=== PATIENT | male | born 1935 | race Caucasian/White ===

== ENCOUNTER → 2020-06-25 | Outpatient (CLI) | payer MEDICARE, OTHER, SELFPAY ==
[2020-06-25 18:57] VITALS: BMI 33.4
[2020-06-25 21:48] LABS: Absolute Lymphocyte Count 1.83 X10^3/uL (0.83-4.51); Absolute Neutrophil Count 6.9 X10^3/uL (2.0-7.7); Basophil# 0.06 X10^3/uL; Basophil% 0.6 % (0-1); Eosinophil# 0.08 X10^3/uL; Eosinophils% 0.8 % (0-5); Hemoglobin 15.5 g/dL (13.0-16.5); Lymphocyte # 1.83 X10^3/ul (4.0); Lymphocyte % 19.1 % (19-41); Mean Corpuscular Hgb 31.8 pg (27.0-32.0); Mean Corpuscular Volume 96.5 fL (80-94); Mean Platelet Vol. 9.8 fl (6.2-12.0); Monocyte# 0.69 X10^3/uL; Monocyte% 7.2 % (0-10); NRBC Flagged by Analyzer 0 % (0-5); Neutrophil # 6.87 X10^3/uL (2.7-7.7); Neutrophil % 71.8 % (47-70); POSITIVE COUNT YES; Platelet Count 276 K/mm3 (150-450); RBC Distribution Width CV 12.9 % (11.6-14.6); RBC Distribution Width SD 45.7 fl (35.1-43.9); Red Blood Count 4.87 M/mm3 (4.6-6.2); White Blood Count 9.6 K/mm3 (4.4-11.0)
[2020-06-25 22:06] LABS: AST(SGOT) 14 U/L (15-37); Alanine Aminotransfer ALT/SGPT 18 U/L (16-61); Albumin, Serum 3.6 g/dL (3.2-5.0); Alkaline Phosphatase 62 U/L (45-117); Anion Gap 5 (5-15); BUN 15 mg/dL (7-18); BUN/Creat Ratio 12.7 RATIO (10-20); Calcium,Total 9.3 mg/dL (8.5-10.1); Chloride 102 mmol/L (98-107); Cholesterol 222 mg/dL (200); Creatinine, Serum 1.18 mg/dL (0.70-1.30); EST Glomerular Filtration Rate 63 mL/min (>60); Est Glom Filt Rate - Afr Amer 76 mL/min (>60); Globulin 3.5 g/dL (2.2-4.2); Glucose 97 mg/dL (74-106); High Density Lipoprotein 40 mg/dL; PSA,Total - Annual Screen 2.78 ng/mL (0.00-4.00); Potassium 4.5 mmol/L (3.5-5.1); Protein, Total 7.1 g/dL (6.4-8.2); Sodium Level 137 mmol/L (136-145); Triglycerides 286 mg/dL; Very Low Density Lipoprotein 57 mg/dL (5-40)
[2020-06-25 22:08] LABS: Differential Indicated SCAN CRITERIA MET
[2020-06-25 22:15] LABS: Differential Comment SCANNED
== END | disposition home or self-care (01) ==
PROVIDERS: PCP Nurse Practitioner; Referring Provider Nurse Practitioner; Visit Provider Nurse Practitioner
DX: I10 Essential (primary) hypertension (principal); E78.5 Hyperlipidemia, unspecified; R35.0 Frequency of micturition; R19.09 Other intra-abdominal and pelvic swelling, mass and lump
CPT/HCPCS: 80053; 80061; 84153; 85025; G0103

== ENCOUNTER → 2021-01-16 | Outpatient (CLI) | payer MEDICARE, OTHER, SELFPAY ==
[2020-07-22 16:32] VITALS: BMI 33.5
[2021-01-16 21:36] LABS: Absolute Lymphocyte Count 1.84 X10^3/uL (0.83-4.51); Absolute Neutrophil Count 5.6 X10^3/uL (2.0-7.7); Basophil# 0.06 X10^3/uL; Basophil% 0.7 % (0-1); Eosinophils% 1.2 % (0-5); Hemoglobin 15.5 g/dL (13.0-16.5); Lymphocyte # 1.84 X10^3/ul (0.83-4.51); Lymphocyte % 22.2 % (19-41); Mean Corp Hgb Conc 33.7 g/dL (32-36); Mean Corpuscular Hgb 32.1 pg (27.0-32.0); Mean Corpuscular Volume 95.2 fL (80-94); Mean Platelet Vol. 9.5 fl (6.2-12.0); Monocyte# 0.65 X10^3/uL; Monocyte% 7.9 % (0-10); NRBC Flagged by Analyzer 0 % (0-5); Neutrophil # 5.58 X10^3/uL (2.7-7.7); Neutrophil % 67.5 % (47-70); Platelet Count 301 K/mm3 (150-450); RBC Distribution Width CV 13.1 % (11.6-14.6); RBC Distribution Width SD 45.1 fl (35.1-43.9); Red Blood Count 4.83 M/mm3 (4.6-6.2); White Blood Count 8.3 K/mm3 (4.4-11.0)
[2021-01-16 21:54] LABS: Vitamin B12 478 pg/mL (211-911)
[2021-01-16 21:54] LABS: ALB/GLOB Ratio 1.1 RATIO (0.9-2.4); AST(SGOT) 18 U/L (15-37); Alanine Aminotransfer ALT/SGPT 17 U/L (16-61); Albumin, Serum 3.7 g/dL (3.2-5.0); Alkaline Phosphatase 69 U/L (45-117); Anion Gap 6 (5-15); BUN 13 mg/dL (7-18); BUN/Creat Ratio 12.5 RATIO (10-20); Calcium,Total 8.5 mg/dL (8.5-10.1); Chloride 102 mmol/L (98-107); Cholesterol 220 mg/dL (200); Creatinine, Serum 1.04 mg/dL (0.70-1.30); EST Glomerular Filtration Rate 73 mL/min (>60); Est Glom Filt Rate - Afr Amer 88 mL/min (>60); Globulin 3.5 g/dL (2.2-4.2); Glucose 105 mg/dL (74-106); High Density Lipoprotein 35 mg/dL; PSA,Total- Diagnostic 2.94 ng/mL (0.0-4.0); Potassium 4.5 mmol/L (3.5-5.1); Protein, Total 7.2 g/dL (6.4-8.2); Sodium Level 138 mmol/L (136-145); Triglycerides 273 mg/dL; Very Low Density Lipoprotein 55 mg/dL (5-40)
== END | disposition home or self-care (01) ==
PROVIDERS: PCP Nurse Practitioner; Referring Provider Nurse Practitioner; Visit Provider Nurse Practitioner
DX: I10 Essential (primary) hypertension (principal); R35.0 Frequency of micturition; R53.83 Other fatigue
CPT/HCPCS: 80053; 80061; 82607; 84153; 85025

== ENCOUNTER → 2021-03-19 | Outpatient (CLI) | payer MEDICARE, OTHER, SELFPAY ==
[2021-03-19 15:48] VITALS: BMI 33.4
[2021-03-19 22:03] LABS: AST(SGOT) 21 U/L (15-37); Alanine Aminotransfer ALT/SGPT 19 U/L (16-61); Albumin, Serum 3.6 g/dL (3.2-5.0); Alkaline Phosphatase 68 U/L (45-117); Anion Gap 8 (5-15); BUN 17 mg/dL (7-18); BUN/Creat Ratio 16.2 RATIO (10-20); Calcium,Total 8.7 mg/dL (8.5-10.1); Chloride 101 mmol/L (98-107); Creatinine, Serum 1.05 mg/dL (0.70-1.30); EST Glomerular Filtration Rate 72 mL/min (>60); Est Glom Filt Rate - Afr Amer 87 mL/min (>60); Globulin 3.7 g/dL (2.2-4.2); Glucose 125 mg/dL (74-106); Potassium 4.1 mmol/L (3.5-5.1); Protein, Total 7.3 g/dL (6.4-8.2); Sodium Level 134 mmol/L (136-145)
== END | disposition home or self-care (01) ==
PROVIDERS: Visit Provider Nurse Practitioner
DX: R19.09 Other intra-abdominal and pelvic swelling, mass and lump (principal)
CPT/HCPCS: 80053

== ENCOUNTER 2021-04-02 11:06 | Day surgery (SDC) | payer MEDICARE, OTHER, SELFPAY ==
[2021-03-28 14:03] VITALS: BMI 33.4
[2021-04-02] VITALS (7 sets, daily range): BP systolic 108–147; BP diastolic 50–68; PULSE 56–62; RESP 16–18; TEMP 36.2–36.6; O2SAT 92–98; BMI 33.9
--- NOTE | 2021-04-02 | IMM_PTH ---
PATIENT: MARYAN OLIVA LOC: [facility] [place] U#:[id number] AGE/SX: 85/M ROOM: RE04/02/[address]: Dr. Reese Mcclendon MD : 1935 BED: DIS: 04/02/2021 SPEC #: [id number] RECD: 04/04/21 13:05 STATUS: KOURTNEY RERob #: [id number] SAÚL: 04/02/21 00:[address]: Reese Mcclendon DEPT: IMMUNOHISTOCHEMISTRY RECD BY: Faith Camacho ENTERED: 04/04/21 13:06 SP TYPE: IMMUNO OTHR DR: Joyce Vaca, MAPPING PILOT-C Tissues: Inguinal lymph node, NOS Procedures: CK8 (add) KI-67 (add) P53 (add) Vimentin (add) Pankeratin (initial) MELAN-A (add) S-100 (add) PHYSICIAN & INSTITUTION [place] [id number] SPECIMEN INFORMATION: Tissue Source: Left inguinal lymph node Clinical Info: Left groin mass, lower extremity edema Specimen Number: [id number] #13 CPT code: 05245, 61524 x6 METHODOLOGY: Deparaffinized sections of prefer/formalin-fixed tissue or PAP/DQ stained slides are incubated with monoclonal/polyclonal antibodies/oligonucleotide probes. Localization is made via biotin free immunoperoxidase method. Appropriate controls are performed and reacted as expected. Results on target cell population are indicated in the following table: RESULTS: ANTIBODY / CLONE RESULT Block 13 AE1-3 (AE1/AE3/PCK26) negative Vimentin (V9) positive Melan A (A103) positive S-100 (4C4.9) positive, weak P53 (DO-7) positive, weak Ki-67 (30-9) positive, moderate CK8 ([id number]) negative These tests were developed and their performance characteristics determined by [facility]. They may not have been cleared or approved by the U.S. Food and Drug Administration. The FDA has determined that such clearance or approval is not necessary. The above immunohistochemical/dualISH markers are ordered and reviewed by the Pathologist. INTERPRETATION: Left inguinal lymph node, excisional biopsy: Consistent with metastatic melanoma. SEVERIANO:gabby 04/08/2021
--- NOTE | 2021-04-02 | LYMN_PTH ---
PATIENT: MARYAN OLIVA LOC: [facility] [place] U#:[id number] AGE/SX: 85/M ROOM: RE04/02/[address]: Dr. Reese Mcclendon MD : 1935 BED: DIS: 04/02/2021 SPEC #: [id number] RECD: 04/02/21 15:00 STATUS: KOURTNEY NEHA #: [id number] SAÚL: 04/02/21 00:[address]: Reese Mcclendon DEPT: SURGICAL PATHOLOGY RECD BY: Faith Camacho ENTERED: 04/03/21 07:30 SP TYPE: LYMPH NODE OTHR DR: Joyce Vaca, DIRECTOR OF QUANTITATIVE RESEARCH-C Tissues: LYMPH NODE BIOPSY Procedures: Frozen Section (charge) Surgery Specimen Level IV HEADER OPERATION: Inguinal lymph node excisional biopsy PRE-OP DIAGNOSIS: Left groin mass, lower extremity edema TISSUE SUBMITTED: Left inguinal node pocket, frozen section FROZEN SECTION DIAGNOSIS Left inguinal lymph node, excisional biopsy: Consistent with metastatic melanoma. AM:gabby 04/03/2021 Case has been reviewed in consultation with Dr. Reynolds who concurs with the above diagnosis. IDC:SJ MICROSCOPIC DIAGNOSIS Left inguinal lymph node, excisional biopsy: Metastatic malignant melanoma. See comment. AM: 04/08/2021 COMMENT Immunohistochemistry ([id number]) supports the above diagnosis. The specimen shows lymph node tissue extensive central area of infarction and melanin pigment deposition. The specimen may represent matted group of lymph nodes. Focal area of viable tumor is noted. Iron stain with matched control is used in the evaluation and focally positive consistent with old hemorrhage. Correlation with clinical findings and appropriate follow up are necessary. Case has been reviewed in consultation with Dr. Reynolds who concurs with the above diagnosis. IDC:SJ MICROSCOPIC DESCRIPTION Slides are reviewed. GROSS DESCRIPTION Received fresh for frozen section consultation labeled with the patient's name is a specimen designated left inguinal node. The specimen consists of an ovoid fragment of sneed-red tissue measuring 4.5 x 4.3 x 2 cm. Serial sections reveal tar-black cut surfaces occupying approximately 90% of the tissue. Plant Care Worker touch prep smears are prepared. Plant Care Worker sections are submitted for frozen section consultation in two blocks. Plant Care Worker sections are submitted for permanent in six blocks. / AM:gabby 04/02/21 The rest of the specimen is submitted in seven more cassettes, 7-13. / SJ:gabby 04/07/21 TC:0 [facility]: [id number], [id number] ADDENDUM ADDENDUM ADDENDUM ADDENDUM ADDENDUM ADDENDUM ADDENDUM ADDENDUM ADDENDUM ADDENDUM ADDENDUM ADDENDUM ADDENDUM 04/17/2021 11:59 ADDENDUM 05/19/2021 10:15 ADDENDUM 06/09/2021 10:55 ADDENDUM 04/17/2021 11:59 ADDENDUM 04/17/2021 11:59 ADDENDUM 04/17/2021 11:59 ADDENDUM 04/17/2021 11:59 This addendum is added to incorporate an outside pathology consultation report. The case was examined at [facility] (#[id number]) and the following diagnosis was rendered. Left inguinal lymph node, excisional biopsy: Melanoma, metastatic, 1 of 1 lymph node. Tumor deposit size: 45 mm (tumor cell necrosis) Location: Parenchymal and subcapsular. Extracapsular extension: Present Please see complete above mentioned consultation report in EMR [facility] Testing Biomarkers findings: Microsatellite status ? cannot be determined Tumor mutation burden - cannot be determined Genomic findings: KRAS amplification KDMSA amplification ? equivocal 3 disease relevant genes with no reportable alterations: BRAF, KIT, NRAS Please see complete report in e-chart or EMR [facility] ADVANCED MELANOMA NGS REPORT FROM [facility] RESULT SUMMARY: Abnormal IMMUNOTHERAPY BIOMARKERS: Tumor Mutation Lewis: Low (3.9 Mutations / MB) Microsatellite Instability: MSI negative PERTINENT NEGATIVE RESULTS: The following genes are NEGATIVE for clinically relevant mutations. Mutational hotspots and surrounding exonic regions were interrogated for DNA level point mutations and indels (fusions not assayed). BAP1, BRAF, BRCA2, CDK4, CDKN2A, CTNNB1, EIF1AX, GNA11, GNAQ, GNAS, KIT, MAP2K1, MITF, NBN, NRAS, NTRK1, PALB2, PDGFRA, PIK3CA, PTEN, RB1, SF3B1, SMO, SRC, TERT, TP53 Please see complete report in e-chart or EMR
[2021-04-02] MEDS: Lactated Ringers 1,000 ML 100 ML IV (11:55)
--- NOTE | 2021-04-02 11:58 | HP.PCM_ITS ---
History and Physical MR#:[id number]:[id number][id number]1935 Provider:Cj Olvera/Sex: 85/M [facility] Vital Signs 03/27/21 18:11 03/28/21 14:03 Height 5 ft 10 in Weight: 233 lb BMI 33.4 33.4 BP 129/85 H Blood Pressure Location Rt brachial Position Sitting Respiration 16 Intake Visit Reasons: LEFT GROIN GROWTH Chief Complaint: left groin mass Mergers And Acquisitions Manager Required: No Is patient in pain?: No Allergies No Known Allergies Allergy (Verified 03/28/21 14:04) Medications sawpalmeto PO 07/22/20 [History Confirmed 03/28/21] irbesartan 300 mg-hydrochlorothiazide 12.5 mg tablet 1 tab PO DAILY #30 tab 10/24/20 [Rx Confirmed 03/28/21] aspirin 81 mg chewable tablet 81 mg PO DAILY 03/28/21 [History Confirmed 03/28/21] PFSH Medical History Bone spur of left foot Hard of hearing Hypertension Left groin mass Recurrent UTI Family History Mother Colon cancer Brother Cancer prostate Father Heart disease Social History Smoking Status: Former smoker alcohol intake: current alcohol intake frequency: 0-2 drinks per day HPI HPI HPI: MARYAN WILEY, is a 85 M who presents to the office today for possible biopsy of the left groin growth/lesion concerning for underlying neoplasm. He is referred from Joyce Vaca NP. Mr. Wiley states that he first developed left lower extremity swelling approximately 1 year ago. He denies any associated pain with this complaint. It was simply uncomfortable when he was playing eighteen holes of golf. He presented to the [facility], and [place], [place] and additional imaging was recommended. However this imaging was unobtainable through that facility and due to scheduling constraints related to pandemic restrictions, imaging was never completed. He noticed a lump develop over his left thigh during the last year and believes that it is gradually getting bigger. He occasionally does yard work including some weeding and thought he may have caused a hernia with straining. Mr. Wiley states that he has had some fatigue but explained this away is age- related. He has not had any exceptional night sweating, but explains that he has always been a sweater. Mr. Pink family history is remarkable for colon cancer in his mother at age 93 and prostate cancer in his brother at age 55 ROS General General: Yes fatigue; No weight change, appetite, colon cancer, breast cancer or weakness HEENT HEENT: No difficulty swallowing, eye injury, eye surgery, swollen glands or hoarseness Endo Endocrine: No thyroid disease, diabetes mellitus, thyroid cancer, Hair loss, heat intolerance or cold intolerance Skin Skin: No rash or changing moles Breast Breast: No left breast lump, right breast lump, nipple discharge, breast pain, abnormal mammogram, abnormal US or breast enlargement Musc Musculoskeletal: Yes arthritis; No back problems, rheumatoid arthritis, gout or joint pain Cardio Cardiovascular: Yes high blood pressure; No murmur, pacemaker, heart disease, atrial fibrillation, heart attack, heart stent, palpitations, shortness of breat with exertion or chest pain Psych Psychiatric: No depression, anxiety or hearing voices Resp Respiratory: No shortness of breath, No sleep apnea, No cough, No COPD, No asthma, No emphysema and No wheezing Gastro Gastrointestinal: No abdominal pain, No nausea or vomiting, No diarrhea, No constipation, No blood in stool, No acid reflux, No hemorrhoids, No ulcers, No gallbladder problem and No black,tarry stools Chandrakant Hematologic: No blood thinners, No blood disorders, No bleeding, No anemia and No blood clots Neuro Neurologic: No system reviewed and no additional complaints, except as documented, No as per HPI, No abnormal gait, No abnormal hearing, No abnormal movements, No abnormal speech, No behavioral changes, No burning sensations, No confusion, No convulsions, No disequilibrium, No dizziness, No localized weakness, No frequent falls, No headache(s), No lack of coordination, No loss of vision, No memory loss, No numbness, No other visual disturbances, No radicular pain, No restless legs, No sensory deficit, No syncope, No tingling, No tremor(s), No weakness and No other Exam Const General: cooperative, healthy appearing and no acute distress Nutritional Appearance: well nourished and overweight Other: Hard of hearing Resp Effort & Inspection: normal respiratory effort Auscultation: clear to auscultation bilaterally, no rales, no rhonchi and no wheezes Cardio Rate: regular rate Rhythm: regular rhythm Heart Sounds: S1 normal and S2 normal Extrem General: edema (Present in the left lower extremity with gaiter distribution skin changes) Other: Along the left inguinal lymph node chain there are several firm, semimobile, nontender, subcutaneous masses. Most prominent measure approximately 8 cm and 4 cm respectively. Assessment and Plan Assessment and Plan (1) Left groin mass: Status: Acute Comment: Patient presents with unilateral, left inguinal adenopathy that is painless on exam. Strong suspicion for neoplastic process. Will require tissue diagnosis. After independent review of the CT imaging, there are some smaller lesions that are fairly superficial and would be accessible for an excisional biopsy. Plan - Dr. Reese Mcclendon MD: ?Plan for excisional biopsy of left inguinal mass under monitored anesthesia care versus general. Patient instructed to bring a driver material handler and remain n.p.o. past midnight. He is also informed of the particular risks and operating in this location including higher rates of postoperative lymphatic leaks. He agrees to the plan as described. (2) Lower extremity edema: Status: Acute Comment: I suspect some component of this lower extremity edema could be connected to the large left inguinal mass causing extrinsic compression on venous return Plan - Dr. Reese Mcclendon MD: Agree with current compression therapy. I have re-examined the patient. There are no clinical changes since date of exam. Plan to proceed with excisional biopsy of left inguinal lymphadenopathy. Site marked. Neither patient nor his spouse have any further questions.
[2021-04-02] MEDS: Cefazolin 2 GM in 0.9% Normal Saline 100 ML IV (12:52)
[2021-04-02] MEDS: Bupivacaine Mpf 0.5% 30 ML VIAL (15:17)
--- NOTE | 2021-04-02 15:20 | OP.PCM_ITS ---
Problems Associated Problem List Diagnoses (1) Left groin mass: (2) Inguinal lymphadenopathy: Report of Operation Date of Procedure: 04/02/21 Pre-Operative Diagnosis: Left inguinal lymphadenopathy Post-Operative Diagnosis: Same Surgery/Procedure Performed:: Excisional biopsy of left inguinal lymph nodes Description of Surgical Findings:: ?Bulky inguinal adenopathy with 1 node confl uence with the adjacent nodes. Significant necrosis and pigmentation of lymph nodes Surgeon: Reese Mcclendon welding machine operator helper gas: Carmela Mosquera Type of Anesthesia: MAC/Supplemental/Local Anesthesiologist: Brayan Urrutia Estimated Blood Loss (mL): 75 Description of Procedure: After appropriate notification the preoperative holding area the patient was brought to the operating room where positioned supine on the operating room table. Preoperative antibiotics were administered the patient was provided with sedation as a local MAC. Patient's left groin was clipped of all offending hair and then prepped and draped in usual sterile f ashion. A formal timeout was conducted to confirm both the patient and the procedure amongst those present. Then a wheal of local anesthetic (half percent bupivacaine plain) was produced and a approximately 6 cm oblique incision along the lines of Langerhans was made over the palpable adenopathy. Dissection was carried down through the subcutaneous tissue with the use of electrocautery. Electrocautery was used to maintain a hemostatic field. Then blunt dissection was used to circumferentially dissect out a very pigmented/black pair of inguinal lymph nodes. Small lymphatics were divided after application of bipolar energy. Larger lymphatics were tied off with 3-0 silk and divided. Once the specimen was freed it was sent to pathology for frozen section confirmation. Pathology did confirm alex tissue with significant necrosis of large parts of the node. Hemostasis was obtained in the wound cavity with the use of selective bipolar energy. At several points in the case there was oozing of a dark gelatinous material from some of the nearby lymph nodes so I made the decision to perform irrigation of the cavity with sterile saline to promote lysis of any potential tumor cells. The wound cavity was closed in layers first with 3-0 Vicryl followed by 4-0 Monocryl as a subcuticular stitch. Dermabond was applied to seal the wound. Patient sedation was then weaned and he was t ransferred to PACU in good condition. Complications None Admit VTE Documentation VTE Mechan Device Prophylaxis: SCD's
== END 2021-04-02 16:36 | disposition home or self-care (01) ==
LOC: SDC 11:10 → AC 11:12
PROVIDERS: PCP Nurse Practitioner; Referring Provider Surgery; Visit Provider Surgery
PROC: (CPT 38500; principal; 2021-04-02 12:25)
DX: R19.09 Other intra-abdominal and pelvic swelling, mass and lump (principal); R59.0 Localized enlarged lymph nodes; R60.0 Localized edema; I10 Essential (primary) hypertension; Z79.82 Long term (current) use of aspirin; Z79.899 Other long term (current) drug therapy; Z87.891 Personal history of nicotine dependence; Z80.0 Family history of malignant neoplasm of digestive organs; Z80.42 Family history of malignant neoplasm of prostate
CPT/HCPCS: 38531; 88305; 88331; 88341; 88342; J7120; J2405

== ENCOUNTER → 2021-05-08 12:01 | Outpatient (CLI) | payer MEDICARE, OTHER, SELFPAY ==
--- NOTE | 2021-05-08 12:10 | MRI_ITS ---
EXAM: MR HEAD WITHOUT AND WITH INTRAVENOUS CONTRAST CLINICAL INDICATION: STAGING H/O MELANOMA TECHNIQUE: Multiplanar and multisequence MR images of the brain were obtained without and with intravenous contrast. This report was created using [employer] report [employer] technology. CONTRAST: IV 20cc Dotarem COMPARISON: None. FINDINGS: BRAIN AND EXTRA-AXIAL SPACES: T2 FLAIR hyperintensity foci in the white matter of both cerebral hemispheres are chronic white matter ischemic changes. No abnormal enhancing lesions intraaxially and extra-axially. No intra- or extra-axial hemorrhage. No intracranial mass or mass effect. Posterior fossa structures are unremarkable. Ventricles are appropriate for age. No hydrocephalus. Basal cisterns are patent. SELLA: Unremarkable. Normal sella turcica, pituitary gland, infundibular stalk, optic chiasm and hypothalamus. AUDITORY SYSTEM: Unremarkable. The internal auditory canals are patent. BONES/JOINTS: Unremarkable. No discrete lytic or blastic abnormalities. SINUSES: Unremarkable as visualized. Clear. MASTOID AIR CELLS: Unremarkable as visualized. Clear. ORBITS: Unremarkable as visualized. Both globes, extraocular muscles, optic nerves and retrobulbar fat appear unremarkable. VASCULATURE: Unremarkable as visualized. Normal flow voids in the major intracranial circulation. MRI/Brain W/WO Contrast IMPRESSION: 1. No MRI evidence of intracranial metastatic disease. 2. Chronic white matter ischemic changes in both cerebral hemispheres. Electronically Signed: Keo Hooper MD at 14:21 EDT , Service support ,
--- NOTE | 2021-05-08 13:24 | CT_ITS ---
ACR Level 3 findings have been noted. An addendum which confirms receipt of the report will follow. EXAM: CT CHEST, ABDOMEN AND PELVIS WITH INTRAVENOUS CONTRAST CLINICAL INDICATION: MELANOMA -- RESTAGING Scan, please COMPARE TO PREVIOUS TECHNIQUE: Helically acquired images were obtained of the chest, abdomen and pelvis with intravenous contrast. This CT exam was performed using one or more of the following dose reduction techniques: automated exposure control, adjustment of the mA and/or kV according to patient size, and/or use of iterative reconstruction technique. This report was created using [employer] report [employer] technology. CONTRAST: IV 100mL Isovue-370 COMPARISON: None. FINDINGS: CHEST: LUNGS AND PLEURAL SPACES: Unremarkable. No mass. No consolidation or edema. No pleural effusion or thickening. No pneumothorax. HEART: Unremarkable. Heart size is normal. No pericardial effusion. MEDIASTINUM: Unremarkable. No mediastinal or hilar adenopathy. Esophagus is unremarkable. No hiatal hernia. THYROID: Unremarkable. No thyroid lesions. ABDOMEN: LIVER: Nonenhancing hypodense cysts in the left hepatic lobe near the diaphragm. GALLBLADDER AND BILE DUCTS: Unremarkable. No calcified gallstones. No gallbladder distention or wall edema. No intra- or extrahepatic biliary ductal dilation. PANCREAS: Unremarkable. No focal cystic or solid mass. SPLEEN: Unremarkable. Normal size without focal cystic or solid mass. ADRENALS: Unremarkable. No nodules. KIDNEYS AND URETERS: Nonenhancing cysts in both kidneys. Normal renal size and position. STOMACH AND BOWEL: Unremarkable. No stomach or bowel distention. No focal inflammatory change. PELVIS: APPENDIX: No evidence of acute appendicitis. BLADDER: Unremarkable. REPRODUCTIVE: Unremarkable as visualized. No mass. CHEST, ABDOMEN and PELVIS: INTRAPERITONEAL SPACE: Unremarkable. No ascites or other fluid collection. No free air. BONES/JOINTS: Mild degenerative anterolisthesis of L4 on L5. No suspicious lytic or blastic abnormality. SOFT TISSUES: Unremarkable. No discrete abdominal or pelvic wall hernia. VASCULATURE: Calcified plaques along the abdominal aorta. Aorta is non-dilated. No aortic dissection. No obvious central pulmonary embolism although this study was not performed with the pulmonary embolism protocol. LYMPH NODES: Large lymphadenopathy in the left groin with areas of cystic necrosis. This measures at least 8.[address]/CT Chest, Abd, Pel w/Contrast IMPRESSION: 1. No acute findings in the chest, abdomen or pelvis. 2. Large metastatic lymphadenopathy in the left groin with areas of cystic necrosis measuring at least 8.4 x 5.3 cm. This is feasible for ultrasound-guided core biopsy. 3. No CT evidence of metastatic disease in the chest, abdomen and pelvis. 4. At least 4 small nonenhancing cysts in the left hepatic lobe near the diaphragm. Electronically Signed: Keo Hooper MD at 14:26 EDT , Service support ,
[2021-05-09 09:32] LABS: CREATININE FINGERSTICK 0.89 mg/dL (0.70-1.30); EGFR FINGERSTICK > 60 mL/min (>60)
== END ==
PROVIDERS: PCP Nurse Practitioner
DX: C43.9 Malignant melanoma of skin, unspecified (principal)
CPT/HCPCS: 70553; 71260; 74177; A9575; Q9967

== ENCOUNTER 2021-05-28 11:26 | Day surgery (SDC) | payer MEDICARE, OTHER, SELFPAY ==
[2021-05-28] VITALS (10 sets, daily range): BP systolic 103–168; BP diastolic 54–86; PULSE 47–74; RESP 16–18; TEMP 35.8–36.6; O2SAT 96–98; BMI 34.2
[2021-05-28] MEDS: Lactated Ringers 1,000 ML 100 ML IV (12:15)
--- NOTE | 2021-05-28 13:35 | HP.PCM_ITS ---
History and Physical Date of Admission: 05/28/21 Date of Service: 05/22/21 MR#:[id number]:[id number]: PJMARYAN KIARARep #:[id number]:[id number] Provider:Dr. Reese Mcclendon MDAge/Sex: 85/M [facility] Vital Signs 05/22/21 13:18 Height 5 ft 9 in Weight: 230 lb BMI 34.0 BP 127/90 H Blood Pressure Location Rt brachial Position Sitting Intake Visit Reasons: Port Placement Consult Chief Complaint: Port placement consult Accompanied by: Is patient in pain?: No Allergies No Known Allergies Allergy (Verified 05/22/21 13:19) Medications irbesartan 300 mg-hydrochlorothiazide 12.5 mg tablet 1 tab PO DAILY #30 tab 10/24/20 [Rx Confirmed 05/22/21] aspirin 81 mg chewable tablet 81 mg PO DAILY 03/28/21 [History Confirmed 05/22/21] saw palmetto 320 mg PO DAILY 03/31/21 [History Confirmed 05/22/21] lidocaine-prilocaine 2.5 %-2.5 % topical cream 1 applic TOPICAL ONCE PRN 30 Days #30 g 05/21/21 [Rx Confirmed 05/22/21] PFSH Medical History Bone spur of left foot Encounter for education Essential hypertension Former smoker Hard of hearing History of edema Hypertension Leg cramps 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 Recurrent UTI Restless legs Wears dentures Wears glasses Wears hearing aid Surgical History History of cataract extraction History of excision of mass Family History Mother Colon cancer Brother Cancer prostate Father Heart disease Social History Smoking Status: Former smoker Tobacco: How many years used: 32 Electronic Cigarette Use: not used second hand exposure: No alcohol intake: current alcohol intake frequency: 0-2 drinks per day details: socially substance use type: does not use destini/amish: Adventism seatbelt use: always do you feel safe at home: Yes HPI HPI HPI: MARYAN PJ, is a 85 M who presents to the office today for consideration of port placement. Patient was diagnosed with metastatic melanoma on 04/02/2021 after I performed a left inguinal node excisional biopsy. They have met with oncology both at [facility] and here and plans are to begin chemotherapy with pembrolizumab on 05/29/2021. Mr. Wiley states that he is d one well, overall, following our surgery in March. He does admit to decreasing his frequency golfing, but excuses this on more frequent doctors visits. He is eager to begin therapy for this cancer. Patient has no prior history of central line placement. Patient has no pacemaker or intracardiac defibrillator. Patient has no renal dysfunction and are not on hemodialysis. Mr. Wiley is not currently prescribed blood thinners other than 81 mg aspirin. ROS General General: No weight change, appetite, fatigue, colon cancer, breast cancer or weakness HEENT HEENT: No difficulty swallowing, eye injury, eye surgery, swollen glands or hoarseness Endo Endocrine: No thyroid disease, diabetes mellitus, thyroid cancer, Hair loss, heat intolerance or cold intolerance Skin Skin: No rash or changing moles Breast Breast: No left breast lump, right breast lump, nipple discharge, breast pain, abnormal mammogram, abnormal US or breast enlargement Musc Musculoskeletal: No back problems, arthritis, rheumatoid arthritis, gout or joint pain Cardio Cardiovascular: Yes high blood pressure; No murmur, pacemaker, heart disease, atrial fibrillation, heart attack, heart stent, palpitations, shortness of breat with exertion or chest pain Psych Psychiatric: No depression, anxiety or hearing voices Resp Respiratory: No shortness of breath, No sleep apnea, No cough, No COPD, No asthma, No emphysema and No wheezing Gastro Gastrointestinal: No abdominal pain, No nausea or vomiting, No diarrhea, No constipation, No blood in stool, No acid reflux, No hemorrhoids, No ulcers, No gallbladder problem and No black,tarry stools Chandrakant Hematologic: Yes blood thinners, No blood disorders, No bleeding, No anemia and No blood clots Neuro Neurologic: No system reviewed and no additional complaints, except as docu mented, No as per HPI, No abnormal gait, No abnormal hearing, No abnormal movements, No abnormal speech, No behavioral changes, No burning sensations, No confusion, No convulsions, No disequilibrium, No dizziness, No localized weakness, No frequent falls, No headache(s), No lack of coordination, No loss of vision, No memory loss, No numbness, No other visual disturbances, No radicular pain, No restless legs, No sensory deficit, No syncope, No tingling, No tremor(s), No weakness and No other Exam Const General: cooperative, healthy appearing, comfortable and no acute distress Orientation: alert, awake and oriented x3 Chest Other: Small (approximately 2 to 3 mm diameter) indigo?colored lesion of the left chest Resp Effort & Inspection: normal respiratory effort Auscultation: clear to auscultation bilaterally, no rales, no rhonchi and no wheezes Cardio Rate: regular rate Rhythm: regular rhythm Heart Sounds: S1 normal and S2 normal Assessment and Plan Assessment and Plan (1) 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 He has met with oncology both at [facility] and here in [place], plans are to begin pembrolizumab therapy next week. Today's visit was occasioned by request for insertion of a tunneled port. Patient has not had no prior central venous access so this will be planned for an ultrasound?guided right internal jugular placement. I briefly discussed with Dr. Almanza of oncology the utility of doing a concurrent biopsy of patient's left chest lesion. He questions the likelihood that this will yield diagnostic information given that the patient seems to have more local regional alex disease from either the lower extremities or pelvic viscera. We will plan to follow-up patient's pet imaging on 05/27/2021 and if there is suggestion of hypermetabolic activity on the left chest lesion can perform concurrent biopsy. Plan - Dr. Reese Mcclendon MD: Ultrasound?guided port placement right versus left chest on 05/28/2021 with local MAC. Possible left chest lesion excisional biopsy dependent on results of PET imaging to be performed 05/27/2021 I have re-examined the patient. There are no clinical changes since date of exam. I did talk with oncology, Dr. Corea, regarding the possible left chest wall excisional biopsy. He stated he felt this was unlikely to be the primary given the rather well-defined regional lymphadenopathy in the patient's right groin and iliac system which suggested a primary source in either the left lower extremity or large bowel. Furthermore, I reviewed the patient's PET imaging from yesterday, which is yet to be officially read by radiology, but I do not see evidence of hypermetabolic activity along the right chest wall. For these reasons, I will simply pursue placement of the Mediport today.
[2021-05-28] MEDS: Cefazolin 2 GM in 0.9% Normal Saline 100 ML IV (14:05)
[2021-05-28] MEDS: Lidocaine 1% /Epi 1:100 (50ml) 50 ML VIAL (14:35)
--- NOTE | 2021-05-28 15:31 | DCINST_ITS ---
Discharge Instructions Diet Discharge Diet: No restrictions Activity Discharge Activity: May Drive and May Shower Ice area for (Minutes): 20 Dressing / Incision Call your doctor if your incision/area has: Continuous Slow Oozing, Sudden Increased Bleeding, Increased Redness and Swelling at the incision site Call your doctor if you observe: Fever of 101 or Higher and Numbness or Tingling Change Dressing in: do not change dressing Cleanse incision/area with: Soap & Water Follow Up Care Test Results: Test results from this visit will be discussed in further detail at your follow-up appointment, if applicable. Discharge Plan Admission Primary Reason for Your Visit: Port placement Attending Provider: Reese Mcclendon Primary Care Provider: Joyce Vaca NP Instructions Patient Instructions: Caring for Your Central Vein Access Discharge Orders/Prescriptions Prescriptions: No Action aspirin 81 mg tablet,chewable 81 mg PO DAILY RF: 0 lidocaine-prilocaine 2.5-2.5 % cream 1 applic topical ONCE PRN (Reason: port access) 30 Days Qty: 30 RF: 2 saw palmetto 160 mg Capsule 320 mg PO DAILY RF: 0 irbesartan-hydrochlorothiazide 300-12.5 mg tablet 1 tab PO DAILY Qty: 30 RF: 9 Referrals / Follow Up: Joyce Vaca NP, AUTOMOBILE SALES REPRESENTATIVE-C [Primary Care Provider] - Disposition Disposition (needs filled in before D/C Order can be placed): Home, Self Care
--- NOTE | 2021-05-28 15:36 | PCM.OPRPT ---
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: Report of Operation Date of Procedure: 05/28/21 Pre-Operative Diagnosis: Metastatic melanoma requiring durable central venous access for immunotherapy Post-Operative Diagnosis: Same Surgery/Procedure Performed:: Placement of ultrasound-guided right internal jugular Mediport (8 Macedonian, MRI compatible) Surgeon: Reese Mcclendon grey roll worker: None Type of Anesthesia: MAC and Topical Anesth Anesthesiologist: Brayan Urrutia Special Medications: Heparin 10,000 units/mL Specimen's removed: None Drains: NA Estimated Blood Loss (mL): 10 Description of Procedure: After appropriate identification in the preoperative holding area the patient was brought to the operating room. There he was administered preoperative antibiotics and positioned supine on the operating room table. Once sedation was begun, ultrasound was used to verify feasibility of port placement on the right side, then the upper chest and lower cervical region were prepped and draped in usual sterile fashion. A formal timeout was then conducted to confirm both the patient and procedure. Ultrasound was used to localize the right internal jugular vein. Then a wheal of half percent bupivacaine was raised superficially in this location and a stab incision was made through the skin and spread down through the dermal layer. The vein was somewhat compressed by some supraclavicular lymphadenopathy just laterally. Using the regular access needle, I had very little leeway once the vein was accessed to then remove the syringe and placed my guidewire. When the guidewire placement was attempted resistance was met so it was retracted and the stick was retried. After the third such attempt, I converted to use of a micropuncture access kit. This proved more successful in the micropuncture wire was threaded in without resistance. After confirmation with C arm and ultrasound the micropuncture sheath was placed in the regular guidewire was inserted using a Seldinger technique. The position of the guidewire was confirmed with fluoroscopy. Next the position of the port pocket was determined and again local anesthetic was used to anesthetize the area of both the pocket and the tunneling cephalad. A transverse incision approximately 3 cm in width was made down through the subcutaneous tissue. Selective electrocautery was used to obtain hemostasis. Then with blunt dissection the port pocket was developed. The port was brought onto the field and found to fit nicely in the new pocket. The catheter was connected to the tunneler and was tunneled up to the position of the guidewire. Here the dilator and peel-away sheath were placed over the guidewire under fluoroscopic surveillance and the guidewire was removed. The catheter was then fed into the peel-away sheath and the sheath was broken. The position of the catheter tip was confirmed with fluoroscopy and slowly the sheath was peeled away as the catheter was inserted fully into the neck. Back in the chest the excess catheter was trimmed and the port was connected to the catheter. The port was tied into the pocket using 2-0 Prolene. Function was then tested using sterile saline on a Callejas needle. It was locked with 4 mL of heparinized saline. The port pocket was closed with a deep dermal stitch using a running 3-0 Vicryl followed by 4-0 Monocryl subcuticular stitch. The 1 cm incision in the neck was closed with a single interrupted subcuticular stitch using 4-0 Monocryl. Dermabond was applied as a dressing. Patient was then aroused from the sedation and taken to PACU for ongoing recovery were a portable chest x-ray was obtained to confirm port positioning and exclude any pneumothorax. Complications None Admit VTE Documentation VTE Mechan Device Prophylaxis: SCD's Procedures Cardiovascular CF Procedures 33xxx-[id number]: [id number] Insert tunneled cv cath
--- NOTE | 2021-05-28 15:50 | RAD_ITS ---
STUDY: X-RAY CHEST REASON FOR EXAM: Male, 85 years old. POST CHEST PORT INSERTION TECHNIQUE: AP portable COMPARISON: None. FINDINGS: Lungs appear well expanded and clear of acute infiltration There is no demonstrated pleural abnormality. Mediport catheter placement on the right with tip in distal superior vena cava. Normal size heart. Normal mediastinum and mila. Normal visualized pulmonary arteries. Normal visualized aortic arch and descending thoracic aorta. Dorsal spine demonstrates degenerative change.. Normal visualized ribs, clavicles, and shoulders. There is no demonstrated abnormality of the visualized soft tissue structures of the upper abdomen. RAD/CXR for Line Placement IMPRESSION: No acute disease. No evidence for pneumothorax status post Mediport catheter placement Electronically Signed: Humberto Cash MD at 16:40 EDT , Service support ,
--- NOTE | 2021-05-28 16:22 | SUR.PHASEII ---
PHASE 2 IN PACU.
== END 2021-05-28 16:55 | disposition home or self-care (01) ==
LOC: SDC 11:26 → AC 11:30
PROVIDERS: PCP Nurse Practitioner; Referring Provider Surgery; Visit Provider Surgery
PROC: (CPT 36561; principal; 2021-05-28 13:00)
DX: C43.9 Malignant melanoma of skin, unspecified (principal); C77.9 Secondary and unspecified malignant neoplasm of lymph node, unspecified; I10 Essential (primary) hypertension; Z87.891 Personal history of nicotine dependence; Z79.899 Other long term (current) drug therapy
CPT/HCPCS: 00532; 36561; 71045; 77001; J7120; C1788

== ENCOUNTER → 2021-06-06 | Outpatient (CLI) | payer MEDICARE, OTHER, SELFPAY ==
--- NOTE | 2021-06-06 | IMM_PTH ---
PATIENT: MARYAN OLIVA LOC: [facility] U#:[id number] AGE/SX: 85/M ROOM: RE06/06/[address]: Dr. Reese Mcclendon MD : 1935 BED: DIS: 06/06/2021 SPEC #: [id number] RECD: 06/09/21 12:48 STATUS: KOURTNEY REQ #: [id number] SAÚL: 06/06/21 00:[address]: Reese Mcclendon DEPT: IMMUNOHISTOCHEMISTRY RECD BY: Faith Camacho ENTERED: 06/09/21 12:49 SP TYPE: IMMUNO OTHR DR: Joyce Vaca, SHREDDED FILLER CIGAR MAKER MACHINE-C Tissues: LYMPH NODE BIOPSY Procedures: CK8 (add) Vimentin (add) Pankeratin (initial) MELAN-A (add) S-100 (add) PHYSICIAN & INSTITUTION [place] [id number] SPECIMEN INFORMATION: Tissue Source: Right supraclavicular lymph node Clinical Info: Enlarged lymph node, melanoma Specimen Number: [id number] CPT code: 40418, 44421 x4 METHODOLOGY: Deparaffinized sections of prefer/formalin-fixed tissue or PAP/DQ stained slides are incubated with monoclonal/polyclonal antibodies/oligonucleotide probes. Localization is made via biotin free immunoperoxidase method. Appropriate controls are performed and reacted as expected. Results on target cell population are indicated in the following table: RESULTS: ANTIBODY / CLONE RESULT AE1-3 (AE1/AE3/PCK26) negative CK8 (09anmyV79) negative Vimentin (V9) positive Melan A (A103) positive S-100 (4C4.9) positive, weak These tests were developed and their performance characteristics determined by [facility]. They may not have been cleared or approved by the U.S. Food and Drug Administration. The FDA has determined that such clearance or approval is not necessary. The above immunohistochemical/dualISH markers are ordered and reviewed by the Pathologist. INTERPRETATION: Right supraclavicular lymph node, biopsy: Consistent with metastatic malignant melanoma. SEVERIANO:gabby 06/10/2021
--- NOTE | 2021-06-06 08:00 | LYMN_PTH ---
PATIENT: MARYAN OLIVA LOC: [facility] U#:[id number] AGE/SX: 85/M ROOM: RE06/06/[address]: Dr. Reese Mcclendon MD : 1935 BED: DIS: 06/06/2021 SPEC #: [id number] RECD: 06/06/21 12:02 STATUS: KOURTNEY RERob #: [id number] SAÚL: 06/06/21 08:[address]: Reese Mcclendon DEPT: SURGICAL PATHOLOGY RECD BY: Melony Trevizo ENTERED: 06/06/21 13:23 SP TYPE: LYMPH NODE OTHR DR: Joyce Vaca, MIXER PIGMENT-C Tissues: LYMPH NODE BIOPSY Procedures: Surgery Specimen Level IV HEADER OPERATION: Biopsy right supraclavicular lymph node PRE-OP DIAGNOSIS: Enlarged lymph node, melanoma TISSUE SUBMITTED: Right supraclavicular lymph node MICROSCOPIC DIAGNOSIS Right supraclavicular lymph node, core biopsy: Consistent with metastatic malignant melanoma. See comment. SEVERIANO:gabby 06/10/2021 COMMENT Immunohistochemistry ([id number]) supports the above diagnosis. The specimen predominantly consists of fragments of fibrous tissue with reactive changes. Foci of metastatic melanoma measures 0.1 cm in greatest dimension. Melanin pigment is also noted in the area of metastatic melanoma. Please make reference to previous specimen ([id number]) left inguinal lymph node, excisional biopsy with diagnosis of ?metastatic malignant melanoma.? This case is discussed with Dr. Reese Mcclendon on 06/10/2021. Case has been reviewed in consultation with Dr. Peres who concurs with the above diagnosis. IDC:AM MICROSCOPIC DESCRIPTION Slides are reviewed. GROSS DESCRIPTION Received in fixative is one container labeled with the patient's name and designated right supraclavicular. The specimen consists of multiple elongated fragments of sneed soft tissue that in aggregate measure 1.5 x 0.3 x 0.1 cm. The specimen is totally submitted in one cassette. / SEVERIANO:gabby 06/06/21 TC:0 CPT: 16326
== END | disposition home or self-care (01) ==
LOC: LABSPEC 12:25
PROVIDERS: PCP Nurse Practitioner; Referring Provider Surgery; Visit Provider Surgery
DX: R59.0 Localized enlarged lymph nodes (principal); C43.9 Malignant melanoma of skin, unspecified
CPT/HCPCS: 88305; 88341; 88342

== ENCOUNTER → 2021-07-17 14:38 | Outpatient (CLI) | payer MEDICARE, OTHER, SELFPAY | PROVIDERS: PCP Nurse Practitioner; Referring Provider Psychiatry & Neurology Neurology; Visit Provider Psychiatry & Neurology Neurology | DX: G70.00 Myasthenia gravis without (acute) exacerbation (principal); G62.9 Polyneuropathy, unspecified | CPT/HCPCS: 36415; 82746; 83519; 83883 ==

== ENCOUNTER → 2021-07-23 | Outpatient (CLI) | payer MEDICARE, OTHER, SELFPAY ==
[2021-07-23 22:51] LABS: AST(SGOT) 61 U/L (15-37); Alanine Aminotransfer ALT/SGPT 70 U/L (16-61); Alkaline Phosphatase 67 U/L (45-117); Bilirubin, Direct 0.18 mg/dL (0.00-0.30); CPK Total, Creatine Kinase 417 U/L (39-308); Erythrocyte Sedimentation Rate 53 mm/hr (0-20); Globulin 3.7 g/dL (2.2-4.2); Protein, Total 6.7 g/dL (6.4-8.2)
[2021-07-23 23:09] LABS: Hemoglobin A1c 5.3 % (3.8-5.6)
[2021-07-25 14:09] LABS: Aldolase 12.9 U/L (3.3-10.3)
[2021-07-25 16:22] LABS: Myoglobin, Serum 553 ng/mL (28-72)
[2021-07-29 19:07] LABS: Free Kappa Light Chains 34.1 mg/L (3.3-19.4); Free Lambda Light Chains 24.2 mg/L (5.7-26.3)
== END | disposition home or self-care (01) ==
PROVIDERS: Psychiatry & Neurology Neurology; PCP Nurse Practitioner; Referring Provider Nurse Practitioner; Visit Provider Nurse Practitioner
DX: G70.00 Myasthenia gravis without (acute) exacerbation (principal); R73.9 Hyperglycemia, unspecified; R53.1 Weakness; R74.01 Elevation of levels of liver transaminase levels
CPT/HCPCS: 80076; 82085; 82550; 83036; 83874; 83883; 85652; 86140

== ENCOUNTER → 2021-07-25 12:43 | Outpatient (CLI) | payer MEDICARE, OTHER, SELFPAY ==
[2021-07-25 12:49] VITALS: BP 145/64; PULSE 57; RESP 18; TEMP 35.7; O2SAT 95
[2021-07-25] MEDS: 0.9% NaCl IVPB Med Flush (250 mL) 15 ML IV (12:54)
[2021-07-25 14:59] VITALS: BP 128/58; PULSE 55; RESP 18; TEMP 35.7; O2SAT 95
== END ==
PROVIDERS: PCP Nurse Practitioner; Referring Provider Psychiatry & Neurology Neurology; Visit Provider Psychiatry & Neurology Neurology
DX: G70.00 Myasthenia gravis without (acute) exacerbation (principal)
CPT/HCPCS: 96365; 96366; J7050; A4216; J2930

== ENCOUNTER → 2021-07-28 12:43 | Outpatient (CLI) | payer MEDICARE, OTHER, SELFPAY ==
[2021-07-28 12:58] VITALS: BP 132/66; PULSE 62; RESP 16; TEMP 36.4; O2SAT 94; BMI 34.0
[2021-07-28] MEDS: 0.9% NaCl IVPB Med Flush (250 mL) 15 ML IV (13:29)
[2021-07-28] MEDS: 0.9% NaCl Peripheral Flush Adult/Peds IV (15:02)
== END ==
PROVIDERS: PCP Nurse Practitioner; Referring Provider Psychiatry & Neurology Neurology; Visit Provider Psychiatry & Neurology Neurology
DX: G70.01 Myasthenia gravis with (acute) exacerbation (principal)
CPT/HCPCS: 96365; 96366; J7050; A4216; J2930

== ENCOUNTER → 2021-07-29 12:41 | Outpatient (CLI) | payer MEDICARE, OTHER, SELFPAY ==
[2021-07-29] MEDS: 0.9% NaCl IVPB Med Flush (250 mL) 15 ML IV (12:49)
[2021-07-29 12:58] VITALS: BP 134/66; PULSE 78; RESP 16; TEMP 37.2; O2SAT 94; BMI 34.0
[2021-07-29] MEDS: 0.9% NaCl Peripheral Flush Adult/Peds IV (14:46)
[2021-07-29 14:50] VITALS: BP 161/63; PULSE 74; RESP 16; TEMP 37.1
== END ==
PROVIDERS: PCP Nurse Practitioner; Referring Provider Psychiatry & Neurology Neurology; Visit Provider Psychiatry & Neurology Neurology
DX: G70.00 Myasthenia gravis without (acute) exacerbation (principal)
CPT/HCPCS: 96365; 96366; J7050; A4216; J2930

== ENCOUNTER → 2021-08-11 09:55 | Outpatient (CLI) | payer MEDICARE, OTHER, SELFPAY ==
[2021-08-11 12:31] LABS: ALB/GLOB Ratio 1.1 RATIO (0.9-2.4); AST(SGOT) 28 U/L (15-37); Alanine Aminotransfer ALT/SGPT 45 U/L (16-61); Albumin, Serum 3.5 g/dL (3.2-5.0); Alkaline Phosphatase 52 U/L (45-117); Anion Gap 14 (5-15); BUN 18 mg/dL (7-18); BUN/Creat Ratio 17.5 RATIO (10-20); CPK Total, Creatine Kinase 85 U/L (39-308); CRP 3.19 mg/L (0.0-3.0); Calcium,Total 8.5 mg/dL (8.5-10.1); Chloride 96 mmol/L (98-107); Creatinine, Serum 1.03 mg/dL (0.70-1.30); EST Glomerular Filtration Rate 73 mL/min (>60); Erythrocyte Sedimentation Rate 8 mm/hr (0-20); Est Glom Filt Rate - Afr Amer 89 mL/min (>60); Globulin 3.1 g/dL (2.2-4.2); Glucose 90 mg/dL (74-106); Potassium 3.8 mmol/L (3.5-5.1); Protein, Total 6.6 g/dL (6.4-8.2); Sodium Level 134 mmol/L (136-145)
[2021-08-12 15:07] LABS: Albumin 3.6 g/dL (2.9-4.4); Aldolase 6.7 U/L (3.3-10.3); Alpha-1-Globulins 0.2 g/dL (0.0-0.4); Alpha-2-Globulins 0.8 g/dL (0.4-1.0); Gamma Globulin 0.9 g/dL (0.4-1.8); Immunoglobulin A 173 mg/dL (61-437); Immunoglobulin G 772 mg/dL (603-1613); Immunoglobulin M 181 mg/dL (15-143); PROEL- TOTAL PROTEIN 6.4 g/dL (6.0-8.5)
[2021-08-13 09:24] LABS: IMMUNOFIXATION RESULT,S Comment: (.)
[2021-08-13 09:25] LABS: Myoglobin, Serum 175 ng/mL (28-72)
== END ==
PROVIDERS: PCP Nurse Practitioner; Referring Provider Psychiatry & Neurology Neurology; Visit Provider Psychiatry & Neurology Neurology
DX: G72.9 Myopathy, unspecified (principal); G70.00 Myasthenia gravis without (acute) exacerbation
CPT/HCPCS: 36415; 80053; 82085; 82550; 82784; 83874; 84165; 85652; 86140; 86334

== ENCOUNTER 2021-09-15 12:41 | Outpatient (CLI) | payer MEDICARE, OTHER, SELFPAY ==
--- NOTE | 2021-09-15 14:13 | ST.MBS ---
Modified Barium Swallow - Patient Information Study Date: 09/15/21 Study Time: 13:00 Direct Billable Minutes: 80 Total Minutes procedure & reportin Diagnosis: Dysphagia, unspecified (R13.10) Referring Physician: Jovon Irvin Reason for Referral: Objectively assess swallow function, risk for aspiration, and to determine recommendations for least restrictive diet texture and compensatory strategies to improve safety of swallow. Medical History: The patient is a 85 year old male with PMH below. Most recently, he has undergone two rounds of immunotherapy (Keytruda) for metastatic melanoma in May and June of 2021. Concern for side effect of the drug causing generalized myasthenia gravis. He was referred for MBS study from his neurologist, Dr. Irvin, for difficulty swallowing liquids. The patient denies dysphagia at this time. 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 Current Diet Ordered: Regular Textures / Thin Liquids Dentition: Upper Dentures, Lower Dentures Mental Status: WNL Respiratory Status: Oxygenating on Room Air - Penetration-Aspiration Scale Penetration-Aspiration Scale: OBJECTIVE ASSESSMENT OF SWALLOW FUNCTION (QUANTITATIVE ? PER TRIAL): PENETRATION / ASPIRATION SCALE (JAY): 1 = does not enter airway 2 = enters airway/above vocal folds/ejected 3 = enters airway/above vocal folds/not ejected 4 = enters airway/contacts vocal folds/ejected 5 = enters airway/contacts vocal folds/not ejected 6 = enters airway/below vocal folds/ejected 7 = enters airway/below vocal folds/not ejected despite effort 8 = enters airway/below vocal folds/no effort VIDEOFLOROSCOPIC SCALE SCORE (JAY): Grade I = aspiration of material that has penetrated into the laryngeal vestibule, intact cough reflex Grade II = aspiration < 10 % of the bolus, intact cough reflex Grade III = aspiration of < 10 % of the bolus, reduced cough reflex or aspiration of > 10 % of the bolus, intact cough reflex Grade IV = aspiration of > 10 % of the bolus, reduced cough reflex - Oral Phase Labial Seal: No Labial Escape Tongue Control During Bolus Hold: Posterior escape of less than half of bolus Bolus Preparation/Mastication: Timely and efficient chewing and mashing Bolus Transport/Lingual Motion: Brisk tongue motion Oral Residue: Residue collection on oral structures - Pharyngeal Phase Initiation of Pharyngeal Swallow: Bolus head in pyriforms Soft Palate Elevation: No bolus between soft palate and pharyngeal wall Laryngeal Elevation: Partial superior movement thyroid cart/partial apprx aryt-epig petiole Anterior Hyoid Excursion: Partial anterior movement Epiglottic Movement: Complete inversion Laryngeal Vestibule Closure at Height of Swallow: Complete; no air/contrast in laryngeal vestibule Pharyngeal Stripping Wave: Present - diminished Pharyngoesophageal Segment Opening: Parital distension and partial duration; parital obstruction of flow Tongue Base Retraction: Trace column of contrast between tongue base & post. pharyngeal wall Pharyngeal Residue: Collection of residue within or on pharyngeal structures - Esophageal Phase Esophageal Clearance: Esophageal retention w/ retrograde flow below pharyngoesophageal seg. - Treatment Strategies Effects of treatment strategies attemped:: Decreased rate of intake = Effective in decreasing oral and pharyngeal residue. - Diagnosis/Impression Diagnosis: Swallow function grossly WNL. Impression: The patient's oral phase had piecemeal deglutition of cookie and pudding trials, which the patient effectively cleared with independent initiation of a second swallow. The pharyngeal phase presented with mildly decreased laryngeal elevation and anterior hyoid excursion; however, the patient demonstrated excellent airway closure throughout trials. He had mildly delayed swallow onset consuming sips via straw. No laryngeal penetration or aspiration observed during the study. - Recommendations Diet: Regular Textures, Thin Liquids Compensatory Strategies: Small Bites, Small Sips, Slow Rate, Sitting upright, Remain sitting upright for 30 minutes after PO intake Recommend Repeat Modified Barium Swallow: No Need for Skilled Speech Therapy Services: No Education Completed: 1. Described result of evaluation. - Provided pt written recommendation for strategies listed above. He and his verbalized good understanding of results and recommendations., 4. Family/caregivers understand evaluation & agree w/ goals & tx plan. - Status Active ST Patient: Active - Contact Information [facility] Speech Therapy:: Liv Ley M.A. [facility] OPERATIONS MANAGER Speech-Language Pathologist [place] [id number] [place] [address] [phone] 09/15/21 14:29
== END 2021-09-15 23:59 | disposition short-term general hospital (02) ==
PROVIDERS: PCP Nurse Practitioner; Referring Provider Psychiatry & Neurology Neurology; Visit Provider Psychiatry & Neurology Neurology
DX: R13.10 Dysphagia, unspecified (principal); G70.00 Myasthenia gravis without (acute) exacerbation
CPT/HCPCS: 74230; 92611

== ENCOUNTER 2021-09-16 15:12 | Outpatient (CLI) | payer MEDICARE, OTHER, SELFPAY | END 2021-09-16 23:59 | disposition short-term general hospital (02) | LOC: MTLAB 15:13 | PROVIDERS: PCP Nurse Practitioner; Referring Provider Psychiatry & Neurology Neurology; Visit Provider Psychiatry & Neurology Neurology | DX: G62.9 Polyneuropathy, unspecified (principal) | CPT/HCPCS: 86335 ==

== ENCOUNTER 2021-11-20 21:47 | Outpatient (CLI) | payer MEDICARE, OTHER, SELFPAY ==
[2021-11-20 22:32] LABS: Rheumatoid Factor < 10.0 IU/mL (<15); Thyroid Stim Hormone (TSH) 1.77 uIU/mL (0.358-3.74)
[2021-11-25 12:00] LABS: Anti-Centromere B Ab <0.2 AI (0.0-0.9); Anti-Chromatin <0.2 AI (0.0-0.9); Anti-Jo <0.2 AI (0.0-0.9); Anti-Scleroderma-70 AB <0.2 AI (0.0-0.9); RNP Ab <0.2 AI (0.0-0.9); SJOGREN'S Anti-SS-A test < 0.2 AI (0.0-0.9); SJOGREN'S Anti-SS-B test < 0.2 AI (0.0-0.9); Smith Ab <0.2 AI (0.0-0.9)
[2021-11-25 16:59] LABS: Anti-dsDNA Ab <1 IU/mL (0-9)
== END 2021-11-20 23:59 | disposition home or self-care (01) ==
PROVIDERS: Visit Provider Nurse Practitioner
DX: M25.511 Pain in right shoulder (principal); M25.512 Pain in left shoulder; R53.1 Weakness
CPT/HCPCS: 84443; 86140; 86225; 86235; 86431

== ENCOUNTER → 2022-01-06 | Outpatient (CLI) | payer MEDICARE, OTHER, SELFPAY ==
[2022-01-08 00:07] LABS: Albumin 3.5 g/dL (2.9-4.4); Alpha-1-Globulins 0.2 g/dL (0.0-0.4); Alpha-2-Globulins 0.9 g/dL (0.4-1.0); Free Lambda Light Chains 20.4 mg/L (5.7-26.3); Gamma Globulin 0.8 g/dL (0.4-1.8); Immunoglobulin A 165 mg/dL (61-437); Immunoglobulin G 813 mg/dL (603-1613); Immunoglobulin M 151 mg/dL (15-143); PROEL- TOTAL PROTEIN 6.3 g/dL (6.0-8.5)
== END | disposition home or self-care (01) ==
LOC: MTLAB 09:03
PROVIDERS: PCP Nurse Practitioner; Referring Provider Psychiatry & Neurology Neurology; Visit Provider Psychiatry & Neurology Neurology
DX: G62.9 Polyneuropathy, unspecified (principal)
CPT/HCPCS: 36415; 82784; 83883; 84165; 86334

== ENCOUNTER 2022-06-16 06:34 | Inpatient (IN) | payer MEDICARE, OTHER, SELFPAY ==
[2022-06-16] VITALS (21 sets, daily range): BP systolic 94–135; BP diastolic 46–118; PULSE 62–109; RESP 9–26; TEMP 36.2–37.3; O2SAT 93–100; BMI 32.6; BMI 31.8
--- NOTE | 2022-06-16 06:38 | NURSING ---
NO OLD EKGS
[2022-06-16 07:18] LABS: Absolute Lymphocyte Count 0.78 X10^3/uL (0.83-4.51); Absolute Neutrophil Count 12.9 X10^3/uL (2.0-7.7); Basophil# 0.04 X10^3/uL; Basophil% 0.3 % (0-1); Eosinophil# 0.04 X10^3/uL; Eosinophils% 0.3 % (0-5); Hematocrit 41.1 % (40-54); Hemoglobin 13.9 g/dL (13.0-16.5); Lymphocyte # 0.78 X10^3/ul (0.83-4.51); Lymphocyte % 5.2 % (19-41); Mean Corp Hgb Conc 33.8 g/dL (32-36); Mean Corpuscular Hgb 30.7 pg (27.0-32.0); Mean Corpuscular Volume 90.7 fL (80-94); Mean Platelet Vol. 9.2 fl (6.2-12.0); Monocyte# 1.21 X10^3/uL; Monocyte% 8.1 % (0-10); NRBC Flagged by Analyzer 0 % (0-5); Neutrophil # 12.88 X10^3/uL (2.7-7.7); Neutrophil % 85.6 % (47-70); Platelet Count 234 K/mm3 (150-450); RBC Distribution Width CV 13.2 % (11.6-14.6); RBC Distribution Width SD 44.1 fl (35.1-43.9); Red Blood Count 4.53 M/mm3 (4.6-6.2)
--- NOTE | 2022-06-16 07:18 | ED.VIS.CHEST ---
HPI History of Present Illness Chief Complaint: Chest Pain Informant: patient Onset/Context/Timing Onset: Yesterday Activity at onset: gradual Timing: Waxes and wanes Quality: Positive for Pain and Pressure Current Severity: Mild Maximum Severity: Moderate Narrative Narrative: Patient presents with 12 hours of lower chest pain. He describes the pain across his lower chest. Started around 7 PM last evening. He took 2 aspirin and states that seem to help the pain somewhat. He woke this morning with increased pain again and took another full size aspirin. He denies shortness of breath. He initially thought it may be secondary to heartburn, but denies reflux symptoms at this time. 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 Myasthenia gravis Recurrent UTI Restless legs Wears dentures Wears glasses Wears hearing aid Home Medications saw palmetto 160 mg capsule 320 mg PO DAILY 03/31/21 [History Last Taken Unknown] irbesartan 300 mg-hydrochlorothiazide 12.5 mg tablet 1 tab PO DAILY #90 tabs 11/04/21 [Rx Last Taken Unknown] Allergy/AdvReac Type Severity Reaction Status Date / Time pembrolizumab [From Keytruda] AdvReac Severe Myasthenia Verified 04/27/22 15:27 gravis Family History Mother Colon cancer Brother Cancer prostate Father Heart disease Surgical History History of cataract extraction History of excision of mass Social History Smoking Status: Former smoker Tobacco: How many years used: 32 Electronic Cigarette Use: not used second hand exposure: No alcohol intake: current alcohol intake frequency: 0-2 drinks per day details: socially substance use type: does not use destini/yarsanism: Worship seatbelt use: always do you feel safe at home: Yes ROS ROS ED Constitutional Constitutional ED: Denies chills or fever(s) Eyes Eyes: Denies change in vision or discharge from eye(s) ENT ENT ED: Denies discharge from eye(s), rhinorrhea or sore throat Cardiovascular Cardiovascular: Reports chest pain; Denies palpitations Respiratory/Chest Respiratory/Chest: Denies cough or dyspnea Gastrointestinal Gastrointestinal: Denies abdominal pain, diarrhea, nausea or vomiting Genitourinary Genitourinary ED: Denies dysuria Musculoskeletal Musculoskeletal: Denies back pain or extremity pain Integumentary Denies Abrasions or rash Neurologic Neurologic: Denies headache(s) or weakness Psychiatric Psychiatric: Denies anxiety or depression Allergic/Immunologic Allergic/Immunologic ED: Denies lip swelling or urticaria EXAM Physical Exam Const Vital Signs: 06/16/22 06:35 06/16/22 06:35 06/16/22 07:46 Temperature 97.1 F L Temperature Source Temporal Pulse Rate 107 H 102 H 97 Respiratory Rate 18 18 18 Blood Pressure 114/46 L 114/46 L 111/62 Blood Pressure Mean 68 68 78 Pulse Ox 100 100 99 Oxygen Delivery Method Room Air Room Air Nasal Cannula Positive well nourished and well developed General Appearance ED: well developed HEENT Reports normocephalic and head/scalp atraumatic Eyes PERRL and EOMs intact bilaterally Neck supple Chest Wall inspection of chest normal and palpation of chest normal Resp normal respiratory effort and clear to auscultation bilaterally Cardio regular rate and regular rhythm GI GI Narrative: Mild epigastric tenderness palpation. No guarding or rebound. Palpation: soft Extremity normal to inspection Neuro oriented x3 and no sensory deficits noted Sensorium / Orientation: alert Motor Exam: strength 5/5 throughout Psych mental status grossly normal Skin no rashes or lesions noted Heart Score History: Moderately Suspicious ECG: Nonspecific Repolarization Age: >/= 65 years Risk Factors: 1 or 2 Risk Factors Troponin: >/=3 x Normal Limit Score: 7 MDM MDM MDM Narrative Medical decision making narrative: Patient has taken 3 full size aspirin the last 12 hours. EKG, chest x-ray, lab work obtained. Lab Data Attestation: I reviewed the patient's lab results. Labs: Laboratory Results - last 24 hr 06/16/22 06/16/22 07:07 07:07 WBC 15.0 H RBC 4.53 L Hgb 13.9 Hct 41.1 MCV 90.7 MCH 30.7 MCHC 33.8 RDW Std Deviation 44.1 H RDW Coeff of Brent 13.2 Plt Count 234 MPV 9.2 Immature Gran % (Auto) 0.500 Neut % (Auto) 85.6 H Lymph % (Auto) 5.2 L [place] % (Auto) 8.1 Eos % (Auto) 0.3 Baso % (Auto) 0.3 Absolute Neuts (auto) 12.9 H Absolute Lymphs (auto) 0.78 L Nucleated RBC % 0 Sodium 140 Potassium 4.0 Chloride 107 Carbon Dioxide 27.0 Anion Gap 6 BUN 15 Creatinine 0.85 Estim Creat Clear Calc 64.69 Est GFR (MDRD) Af Amer 110 Est GFR (MDRD) Non-Af 91 BUN/Creatinine Ratio 17.6 Glucose 116 H Calcium 8.6 Total Bilirubin 1.30 H Direct Bilirubin 0.25 AST 21 ALT 15 L Alkaline Phosphatase 54 Troponin I High Sens 1216 H* Total Protein 6.1 L Albumin 2.9 L Globulin 3.2 Lipase 86 Radiography Chest X-Ray - ED: 1 View, Read by ED Physician and Chronic Changes EKG Initial EKG: Attestation: I personally reviewed and interpreted this EKG as follows: Interpretation: Sinus Tachycardia (Sinus tach at 103 with PVCs. No significant ST changes noted.) Treatment and Re-Evaluation Narrative: CBC reveals an elevated white count at 15. Chemistry studies reveal normal renal function. Troponin is elevated at 1216. LFTs and lipase unremarkable. On repeat evaluation patient states he was starting to have slightly more pain. Repeat EKG is performed. I spoke Dr. Vega and sent him the initial EKG along with prehospital EKG. He spoke with Dr. Del Toro and plan will be to take the patient to the Construction Quality Control Manager and then upstairs. I have hospitalist on page. Heparin bolus is ordered. Discharge Plan Triage Chief Complaint: Chest Pain ED Provider: Jordana Person Dx/Rx/DC Orders Clinical Impression: Acute non-ST elevation myocardial infarction (NSTEMI) Prescriptions: No Action irbesartan-hydrochlorothiazide 300-12.5 mg tablet 1 tab PO DAILY Qty: 90 3RF saw palmetto 160 mg Capsule 320 mg PO DAILY Primary Care Provider: Joyce Vaca NP Referrals: Joyce Vaca NP, SIENE MAKER-C [Primary Care Provider] - Disposition Disposition: Acute Care Hospital [facility]
[2022-06-16 07:41] LABS: AST(SGOT) 21 U/L (15-37); Alanine Aminotransfer ALT/SGPT 15 U/L (16-61); Albumin, Serum 2.9 g/dL (3.2-5.0); Alkaline Phosphatase 54 U/L (45-117); Anion Gap 6 (5-15); BUN 15 mg/dL (7-18); BUN/Creat Ratio 17.6 RATIO (10-20); Bilirubin, Direct 0.25 mg/dL (0.00-0.30); Calcium,Total 8.6 mg/dL (8.5-10.1); Chloride 107 mmol/L (98-107); Creatinine, Serum 0.85 mg/dL (0.70-1.30); EST Glomerular Filtration Rate 91 mL/min (>60); Est Glom Filt Rate - Afr Amer 110 mL/min (>60); Estimated Creatinine Clearance 64.69 ml/min; Globulin 3.2 g/dL (2.2-4.2); Glucose 116 mg/dL (74-106); Lipase 86 U/L (73-393); Protein, Total 6.1 g/dL (6.4-8.2); Sodium Level 140 mmol/L (136-145); Troponin-I HS (w/2H Reflex) 1216 pg/mL (3.0-78.0)
--- NOTE | 2022-06-16 07:50 | EKG12_ITS ---
Test Reason : CP Blood Pressure : / mmHG Vent. Rate : 072 BPM Atrial Rate : 072 BPM P-R Int : 132 ms QRS Dur : 076 ms QT Int : 360 ms P-R-T Axes : 022 082 072 degrees QTc Int : 394 ms Sinus rhythm with Premature atrial complexes Low voltage QRS Septal infarct , age undetermined Consider inferior-lateral injury pattern Abnormal ECG Confirmed by GELACIO SOLIS, PEPE ([id number]), graphic editor CATHERINE HOBBS ([id number]) on 06/17/2022 9:36:58 AM Referred By: VIVIAN Confirmed By:PEPE BRIZUELA MD
--- NOTE | 2022-06-16 07:52 | RAD_ITS ---
STUDY: X-RAY CHEST REASON FOR EXAM: Male, 86 years old. Chest pain TECHNIQUE: Single AP portable view of the chest. COMPARISON: Comparison is made with prior study dated 05/28/2021. FINDINGS: A right-sided portacatheter is seen with the tip at the junction of the superior vena cava and right atrium. EKG electrodes are seen. Hyperinflation. Mild degree of increased markings at the left lung base with blunting of the left constrained angle. This may represent an early left lower lobe infiltrate. There is no demonstrated pleural abnormality. Normal size heart. Normal mediastinum and mila. Normal visualized pulmonary arteries. Normal visualized aortic arch and descending thoracic aorta. There are diffuse degenerative changes of the visualized thoracic spine. Normal visualized ribs, clavicles, and shoulders. There is no demonstrated abnormality of the visualized soft tissue structures of the upper abdomen. RAD/Chest 1 View (Portable) IMPRESSION: Increased markings in the left lower lobe with blunting of the left corresponding angle. Early left lower lobe infiltrate should be ruled out. Electronically Signed: Jaren Weber MD at 8:49 EDT ,
[2022-06-16] MEDS: fentaNYL 100 MCG/2 ML Ampul 25 MCG IV (07:56)
[2022-06-16] MEDS: Heparin Injection (Vial) 5,000 UNIT/ML VIAL 4000 UNIT IV (08:02)
--- NOTE | 2022-06-16 08:02 | NURSING ---
DR PARK FOR DR EVERETT
--- NOTE | 2022-06-16 08:07 | NURSING ---
DRIER TAKE OFF TENDER THEN ICU PARK NSTEMI, ACS
--- NOTE | 2022-06-16 08:18 | NURSING ---
ICU 5
--- NOTE | 2022-06-16 08:23 | HP.PCM.HOS_ITS ---
HPI - General General Date of Admission: 06/16/22 Date of Service: 06/16/22 Chief Complaint: Chest pain HPI Narrative Mr. Wiley is an 86-year-old male with a history of hypertension, metastatic melanoma to lymph node, and myasthenia gravis secondary to immunotherapy with Keytruda who presented to [facility] 06/16/2022 with approximately 12 hours of chest pain. Last night he had some epigastric/substernal pain that he attributed to reflux but took full dose aspirin and went to bed for several hours. Woke up and continued to have the pain, took more aspirin but given persistent nature he presented to the ED. Per report prearrival EKG had some questionable ST changes, EKG is here with no evidence of STEMI however his troponin elevated at 1216. Cardiology consulted and plan to take him to the [facility] [employer] Co[employer] Supervisor for evaluation possible intervention. Upon evaluation emergency department he reported continued chest pain, denied any kind of shortness of breath. Denied any exacerbating or relieving factors. Denies any nausea, ROS otherwise entirely negative. 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 Myasthenia gravis Recurrent UTI Restless legs Wears dentures Wears glasses Wears hearing aid Home Medications saw palmetto 160 mg capsule 320 mg PO DAILY 03/31/21 [History Last Taken Unknown] irbesartan 300 mg-hydrochlorothiazide 12.5 mg tablet 1 tab PO DAILY #90 tabs 11/04/21 [Rx Last Taken Unknown] Allergy/AdvReac Type Severity Reaction Status Date / Time pembrolizumab [From Keytruda] AdvReac Severe Myasthenia Verified 04/27/22 15:27 gravis Family History Mother Colon cancer Brother Cancer prostate Father Heart disease Surgical History History of cataract extraction History of excision of mass Social History Smoking Status: Former smoker Tobacco: How many years used: 32 Electronic Cigarette Use: not used second hand exposure: No alcohol intake: current alcohol intake frequency: 0-2 drinks per day details: socially substance use type: does not use destini/sikh: Presybeterian seatbelt use: always do you feel safe at home: Yes ROS Constitutional Constitutional: Denies change in weight, chills, fever(s) or night sweats Eyes Eyes: Denies change in vision ENT HEENT: Denies headache(s), nasal congestion or sore throat Cardiovascular Cardiovascular: Reports chest pain; Denies palpitations Respiratory/Chest Respiratory/Chest: Denies cough or productive cough Gastrointestinal Gastrointestinal: Reports other Details: denies changes in bowel or bladder ; Denies abdominal pain Genitourinary Genitourinary: Reports other Details: denies changes in urination Musculoskeletal Musculoskeletal: Denies joint pain Neurologic Neurologic: Denies dizziness, focal weakness, headache(s), numbness or tingling Psychiatric Psychiatric: Denies anxiety Hematologic/Lymphatic Hematologic/Lymphatic: Denies easy bleeding Allergic/Immunologic Allergic/Immunologic: Reports other Details: denies rashes Vital Signs Vital Signs Vital Signs: 06/16/22 06:35 06/16/22 06:35 06/16/22 07:46 Temperature 97.1 F L Temperature Source Temporal Pulse Rate 107 H 102 H 97 Respiratory Rate 18 18 18 Blood Pressure 114/46 L 114/46 L 111/62 Blood Pressure Mean 68 68 78 Pulse Ox 100 100 99 Oxygen Delivery Method Room Air Room Air Nasal Cannula Oxygen Flow Rate (L/min) 06/16/22 08:07 Temperature 99.2 F H Temperature Source Temporal Pulse Rate 109 H Respiratory Rate 22 H Blood Pressure 110/69 Blood Pressure Mean 82 Pulse Ox 100 Oxygen Delivery Method Nasal Cannula Oxygen Flow Rate (L/min) 2 Weight Weight: 100.3 kg Body Mass Index (BMI) 32.6 Physical Exam Const alert and oriented x3 General Appearance: cooperative and comfortable HEENT normocephalic and head/scalp atraumatic Eyes EOMs intact bilaterally Neck supple Resp normal respiratory effort and clear to auscultation bilaterally Cardio regular rate and regular rhythm GI soft to palpation, non-tender and non-distended Extremity normal to inspection Skin no rashes or lesions noted Neuro moves all extremities Psych affect normal Results Lab / Micro Data Result Diagrams: 06/16/22 07:07 06/16/22 07:07 Labs: Laboratory Results - last 24 hr 06/16/22 07:07: WBC 15.0 H, RBC 4.53 L, Hgb 13.9, Hct 41.1, MCV 90.7, MCH 30.7, MCHC 33.8, RDW Std Deviation 44.1 H, RDW Coeff of Brent 13.2, Plt Count 234, MPV 9.2, Immature Gran % (Auto) 0.500, Neut % (Auto) 85.6 H, Lymph % (Auto) 5.2 L, [place] % (Auto) 8.1, Eos % (Auto) 0.3, Baso % (Auto) 0.3, Absolute Neuts (auto) 12.9 H, Absolute Lymphs (auto) 0.78 L, Nucleated RBC % 0 06/16/22 07:07: Sodium 140, Potassium 4.0, Chloride 107, Carbon Dioxide 27.0, Anion Gap 6, BUN 15, Creatinine 0.85, Estim Creat Clear Calc 64.69, Est GFR (MDRD) Af Amer 110, Est GFR (MDRD) Non-Af 91, BUN/Creatinine Ratio 17.6, Glucose 116 H, Calcium 8.6, Total Bilirubin 1.30 H, Direct Bilirubin 0.25, AST 21, ALT 15 L, Alkaline Phosphatase 54, Troponin I High Sens 1216 H*, Total Protein 6.1 L , Albumin 2.9 L, Globulin 3.2, Lipase 86 Assessment & Plan Assessment/Plan (1) Acute non-ST elevation myocardial infarction (NSTEMI): PLAN: Plan 1. NSTEMI, presumed type I Troponins elevated to 1216 with substernal chest pain that has not been relieved EKGs in the ED not suggestive of STEMI Cardiology already contacted emergency department and plan to take patient to the [employer] Paper Coating Supervisor and recommended heparin drip Admit to PCU Already received full dose aspirin Daily aspirin and statin Beta-gabrielle within 24 hours Already on ARB as an outpatient Will obtain hemoglobin A1c and lipid panel Will order echocardiogram Will follow-up post cath 2. Metastatic melanoma Follows with Dr. Albarran with oncology Was previously on Keytruda but did not tolerate this and reports he currently follows every 3 months but is not on any medication at this time #DVT ppx: On heparin drip Dana Harvey MD Charges/Coding Visit Charges Inpatient E&M: 44555 Init Hosp L2
[2022-06-16 09:00] LABS: D-Dimer Quantitative (DVT/PE) 0.67 FEU/ug/m (0.27-0.49)
[2022-06-16 09:15] LABS: Reflex Troponin-HS? (from REC) Y
--- NOTE | 2022-06-16 09:15 | CL.D_ITS ---
Patient Name: MARYAN OLIVA Study Date: 06/16/2022 Performing: Radha Del oTro MD Ht: 69 inches 175.26 cm : 1935 Wt: 221.12 lbs 100.3 kg Age: 86 Gender: male BSA: 2.16 PROCEDURE(S) PERFORMED [id number])LHC/COR/LV CLINICAL PROFILE AND INDICATIONS Indications: ACS <= 24 hrs Heart Failure: None CAD Presentations: Non-STEMI. Symptom onset Date/Time: Time Not Available CONCLUSIONS 55-60% distal LMCA - calcified 50% calcified Prox LAD 50% Mid RCA LVEF 20-25%. Consider Takotsubo's CMP RECOMMENDATIONS Medical therapy DESCRIPTION OF PROCEDURE The patient arrived to the procedure lab. The risks and benefits of the procedure as well as a full description of our services here and current unavailability of surgical backup were fully explained to the patient and/or their significant other prior to the catheterization. The Timeout was completed, verifying the correct patient and procedure. The patient's procedural site was prepped and draped in the usual fashion. Local anesthetic was given subcutaneously to right radial region with Lidocaine 2%. Using a modified Seldinger technique, arterial access was obtained via the right radial artery, a 6Fr sheath was inserted. Left Coronary Artery selective angiography was performed in multiple views using a 5 Fr. 4.0 Montgomery catheter. Right Coronary Artery selective angiography was then performed in multiple views using a 5 Fr. 4.0 Montgomery catheter. Left Ventriculography was performed in AMADOR projection using a 5 Fr. Pigtail catheter. LV to AO pullback pressures were then recorded.The arterial sheath was pulled and a TR Band was applied for hemostasis. 10cc air inserted. CORONARY ANGIOGRAPHY DOMINANCE: Right Dominant LEFT HEART ASSESSMENT Left Ventricular Ejection Fraction: by LV Gram 20 % LVEDP: 30 mmHg LEFT MAIN: Calcified 50% Distal lesion in Left Main Calcified 60% Distal lesion in Left Main LEFT ANTERIOR DESCENDING ARTERY: LAD: Calcified 50% Proximal lesion in LAD RIGHT CORONARY ARTERY: RCA: Calcified 50% Mid lesion in RCA Calcified 20% Proximal lesion in RCA Tubular 50% Distal lesion in RCA COMPLICATIONS No Complications PROCEDURE MEDICATIONS Fentanyl 50 mcg IV Versed 2 mg IV Oxygen: 2 L/min via nasal cannula Heparin given IA 06/16/2022 08:41:24 Verapamil 2.5mg, Ntg 200mcgs, 2000 units of Heparin given IA 06/16/2022 08:41:24 SUMMARY OF HEMODYNAMIC DATA Time AIR REST ECG 08:22:32 LV 102/19, 28 08:55:22 LV 99/21, 28 08:55:29 LV 104/26, 31 08:56:40 LVp 104/24, 30 08:56:46 AOp 123/56 (82) 08:56:53 Signed By Radha Del Toro MD On 06/16/2022 09:15:06 Radha Del Toro MD
[2022-06-16 09:48] LABS: International Normalized Ratio 1.1; Prothrombin Time (Protime)PT. 13.4 SECONDS (11.7-14.9)
[2022-06-16 09:49] LABS: Partial Thromboplast Time 36.7 Seconds (24.1-36.2)
--- NOTE | 2022-06-16 09:51 | CON.PCM.CA_ITS ---
Assessment & Plan Assessment/Plan (1) Acute non-ST elevation myocardial infarction (NSTEMI): PLAN: Heavily calcified coronary arteries however no lesion more than 70% stenosis. NELLIE-3 flow in all epicardial blood vessels. Troponin elevation likely because of Takotsubo's cardiomyopathy. Continue aspirin. Start on low- dose beta-blockers and escalate doses as tolerated. Start low-dose COLIN inhibitors. Check D-dimer (2) Cardiomyopathy: PLAN: Nonischemic. 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 Start on beta-blockers and COLIN inhibitors. Start on Lasix in view of elevated LVEDP. (3) Coronary artery disease: PLAN: Continue aspirin. Lipid management as per internal medicine. Beta-bl ockers. (4) Myasthenia gravis: PLAN: As per internal medicine. 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 HPI Consult Data Date of Consult: 06/16/22 HPI Narrative HPI Narrative: MARYAN OLIVA, is a 86 M who presented to the emergency room with complaints of chest discomfort. His troponins were noted to be elevated. Because of his persistent chest pain, he was offered urgent coronary angiography and possible revascularization. 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 Myasthenia gravis Recurrent UTI Restless legs Wears dentures Wears glasses Wears hearing aid Home Medications saw palmetto 160 mg capsule 320 mg PO DAILY 03/31/21 [History Last Taken Unkn own] irbesartan 300 mg-hydrochlorothiazide 12.5 mg tablet 1 tab PO DAILY #90 tabs 11/04/21 [Rx Last Taken Unknown] Allergy/AdvReac Type Severity Reaction Status Date / Time pembrolizumab [From Keytruda] AdvReac Severe Myasthenia Verified 04/27/22 15:27 gravis Family History Mother Colon cancer Brother Cancer prostate Father Heart disease Surgical History History of cataract extraction History of excision of mass Social History Smoking Status: Former smoker Tobacco: How many years used: 32 Electronic Cigarette Use: not used second hand exposure: No alcohol intake: current alcohol intake frequency: 0-2 drinks per day details: socially substance use type: does not use destini/mormonism: Jain seatbelt use: always do you feel safe at home: Yes Physical Exam Narrative Comfortable. No apparent distress. Respirations unlabored. Heart rate regular rate and rhythm. Abdomen soft. Neurological alert oriented x3. Hard of hearing. No ankle edema. Risk Stratification Risk Stratification Applicable: No Objective Data Vital Signs: Vital Signs Temp Pulse Resp BP Pulse Ox O2 Del Method O2 Flow Rate 99.2 F H 109 H 22 H 110/69 100 Nasal Cannula 2 06/16/22 08:07 06/16/22 08:07 06/16/22 08:07 06/16/22 08:07 06/16/22 08:07 06/16/22 08:07 06/16/22 08:07 Oxygen Flow Rate (L/min) 2 Oxygen Delivery Method Nasal Cannula Weight: 221 lb 1.978 oz Body Mass Index (BMI) 32.6 Intake & Output: Intake and Output for Last 24 Hours 06/14/22 06/15/22 06/16/22 23:59 23:59 23:59 Intake Total 110 / 110 Balance 110 / 110 Lab / Micro Data Result Diagrams: 06/16/22 07:07 06/16/22 07:07 Labs: Laboratory Results - last 24 hr 06/16/22 07:07: WBC 15.0 H, RBC 4.53 L, Hgb 13.9, Hct 41.1, MCV 90.7, MCH 30.7, MCHC 33.8, RDW Std Deviation 44.1 H, RDW Coeff of Brent 13.2, Plt Count 234, MPV 9.2, Immature Gran % (Auto) 0.500, Neut % (Auto) 85.6 H, Lymph % (Auto) 5.2 L, [place] % (Auto) 8.1, Eos % (Auto) 0.3, Baso % (Auto) 0.3, Absolute Neuts (auto) 12.9 H, Absolute Lymphs (auto) 0.78 L, Nucleated RBC % 0 06/16/22 07:07: Sodium 140, Potassium 4.0, Chloride 107, Carbon Dioxide 27.0, Anion Gap 6, BUN 15, Creatinine 0.85, Estim Creat Clear Calc 64.69, Est GFR (MD RD) Af Amer 110, Est GFR (MDRD) Non-Af 91, BUN/Creatinine Ratio 17.6, Glucose 116 H, Calcium 8.6, Total Bilirubin 1.30 H, Direct Bilirubin 0.25, AST 21, ALT 15 L, Alkaline Phosphatase 54, Troponin I High Sens 1216 H*, Total Protein 6.1 L , Albumin 2.9 L, Globulin 3.2, Lipase 86 06/16/22 07:30: D-Dimer Quant (PE/DVT) 0.67 H* 06/16/22 07:30: PT 13.4, INR 1.1, APTT 36.7 H Cardiology Labs/Tests 06/16/22 07:07: WBC 15.0 H, RBC 4.53 L, Hgb 13.9, Hct 41.1, MCV 90.7, MCH 30.7, MCHC 33.8, Plt Count 234, MPV 9.2, Immature Gran % (Auto) 0.500, Neut % (Auto) 85.6 H, Lymph % (Auto) 5.2 L, [place] % (Auto) 8.1, Eos % (Auto) 0.3, Baso % (Auto) 0.3, Absolute Neuts (auto) 12.9 H, Nucleated RBC % 0 06/16/22 07:07: Sodium 140, Potassium 4.0, Chloride 107, Carbon Dioxide 27.0, Anion Gap 6, BUN 15, Creatinine 0.85, Est GFR (MDRD) Af Amer 110, Est GFR (MDRD) Non-Af 91, BUN/Creatinine Ratio 17.6, Glucose 116 H, Calcium 8.6, Total Miguel irubin 1.30 H, Direct Bilirubin 0.25 06/16/22 07:30: D-Dimer Quant (PE/DVT) 0.67 H* 06/16/22 07:30: PT 13.4, INR 1.1, APTT 36.7 H Rhythm: EKG: ECHO: Stress Test: Cardiac Cath: PCI: CT Surgery: Holter monitor: EPS: PPM: CXR: Chest CT Scan: Radiography Diagnostic Testing: Radiology Impression Chest X-Ray 11/01/22 07:52 IMPRESSION: Increased markings in the left lower lobe with blunting of the left corresponding angle. Early left lower lobe infiltrate should be ruled out. Electronically Signed: Jaren Weber MD at 8:49 EDT ,
--- NOTE | 2022-06-16 09:51 | ECHOCS_ITS ---
Reason For Study: Chest Pain Procedure This was a 2D Doppler, Color Flow transthoracic echocardiogram. The study was technically difficult. Contrast injection was performed. Exam performed portable in patient room. Left Ventricle Mildly dilated left ventricle. Suspect LV apical thrombus. The left ventricular ejection fraction is 25 %. Diastolic function is indeterminate. Anterior and apial akinesis. Only basal part of the heart moving. Right Ventricle Normal right ventricle. Atria The left atrium is mildly enlarged. Normal right atrium. Mitral Valve Trivial mitral valve insufficiency. Tricuspid Valve Trivial tricuspid valve insufficiency. Normal pulmonary artery pressure. Aortic Valve Normal aortic valve. Pulmonic Valve The pulmonic valve is not well visualized. Great Vessels Normal sized aortic root. Pericardium/Pleural Small pericardial effusion. Medication Diluted definity 3ml given slow IV push to enhance endocardial definition. MMode/2D Measurements & Calculations LVIDd: 5.7 cm IVSd: 1.1 cm LA dimension: 4.0 cm LVIDs: 4.8 cm LVPWd: 0.87 cm RVDd: 3.8 cm FS: 15.6 % LAV(MOD-bp): 72.8 ml LA A4 area: 20.1 cm2 RA A4 area: 14.9 cm2 LAV(MOD-bp) Indexed: 34.2 ml/m2 LAV(MOD-sp2): 89.5 ml LAV(MOD-sp4): 52.2 ml Time Measurements MV dec time: 0.18 sec Doppler Measurements & Calculations MV E max jose miguel: 50.9 cm/sec Lat Peak E' Jose Miguel: 6.4 cm/sec Med Peak E' Jose Miguel: 5.4 cm/sec MV A max jose miguel: 89.1 cm/sec E/E' lat: 7.9 E/E' med: 9.4 MV E/A: 0.57 MV V2 max: 102.0 cm/sec MV P1/2t max jose miguel: 57.1 cm/sec Ao V2 max: 90.6 cm/sec MV max P.2 mmHg MV P1/2t: 67.9 msec Ao max P.3 mmHg MV V2 mean: 51.1 cm/sec MV dec slope: 246.3 cm/sec2 Ao V2 mean: 63.1 cm/sec MV mean P.3 mmHg Ao mean P.8 mmHg MV V2 VTI: 30.8 cm MVA(P1/2t): 3.2 cm2 Ao V2 VTI: 16.3 cm LV V1 max: 77.0 cm/sec PA V2 max: 94.1 cm/sec TR max jose miguel: 230.3 cm/sec LV V1 max P.4 mmHg PA V2 mean: 69.3 cm/sec TR max P.2 mmHg LV V1 mean P.3 mmHg LV V1 mean: 52.9 cm/sec LV V1 VTI: 11.3 cm ECHO/Echo Complete W/ Contrast Interpretation Summary Mildly dilated left ventricle. The left ventricular ejection fraction is 20-25 %. Diastolic function is indeterminate. Anterior and apial akinesis. Only basal part of the heart moving. Suspect LV apical thrombus. The left atrium is mildly enlarged. Small pericardial effusion. Ordering Physician: Radha Del Toro Performed By: Conrad Swann RCS
[2022-06-16 10:20] LABS: Troponin-I HS 1326 pg/mL (3.0-78.0)
--- NOTE | 2022-06-16 11:00 | EKG12_ITS ---
Test Reason : REPEAT AFTER LAST EKG READ PA Blood Pressure : / mmHG Vent. Rate : 074 BPM Atrial Rate : 074 BPM P-R Int : 156 ms QRS Dur : 078 ms QT Int : 362 ms P-R-T Axes : 076 088 073 degrees QTc Int : 401 ms Sinus rhythm with occasional Premature ventricular complexes and Premature atrial complexes Low voltage QRS Septal infarct , age undetermined Consider inferior-lateral injury pattern Abnormal ECG Confirmed by GELACIO SOLIS, PEPE ([id number]), offline editor CATHERINE HOBBS ([id number]) on 06/17/2022 9:37:23 AM Referred By: VIVIAN Confirmed By:PEPE BRIZUELA MD
[2022-06-16] MEDS: oxyCODONE 5 MG Tablet PO (11:44)
--- NOTE | 2022-06-16 12:30 | CT_ITS ---
STUDY: CTA CHEST REASON FOR EXAM: Male, 86 years old. Eval for PE, chest pain and elevated ddi bob RADIATION DOSAGE (If Supplied By Facility): CTDIvol = ( 11.96 ) mGy, DLP = ( 524.43 ) mGycm TECHNIQUE: The examination was performed with the intravenous administration of IV 100mL Isovue-370. Post-processing of the angiographic images was performed, with multiplanar reformation and 3D reconstruction. Individualized dose optimization techniques were used for this CT. COMPARISON: Comparison is made with prior chest radiograph done earlier in the day as well as prior chest radiograph dated 05/28/2021. FINDINGS: A right-sided port catheter is seen with the tip in the superior vena cava. Normal enhancement of the main pulmonary artery and right and left pulmonary arteries. Normal enhancement of the bilateral peripheral pulmonary arteries. There is no demonstrated pulmonary embolism. Normal thoracic aorta and visualized great vessels. There is no demonstrated aortic dissection. Minimal degree of pericardial thickening. There are calcifications of the coronary arteries. There is a 3.6 cm x 2.7 cm soft tissue mass in the right paratracheal region in keeping with adenopathy. This extends into the right lower cervical region. There is also evidence of a 3.2 cm x 1.8 cm soft tissue mass in the left paraventricular region indicating lymphadenopathy. Small subcarinal lymph nodes. Normal hilar regions. Normal visualized trachea and bronchi. The lungs are well expanded. Small bilateral pleural effusions with bibasilar atelectasis and/or infiltration slightly worse on the left lung base. Normal pleura. Normal chest wall structures. There are degenerative changes of thoracic spine. Questionable 7.6 mm calculus in the upper pole of the left kidney. 1.6 cm cyst in the anterior aspect of the left lobe the liver as well as a 1 cm cyst along the lateral aspect of the left lobe of the liver. CT/CTA Chest W/WO Contrast IMPRESSION: No evidence of pulmonary embolism. Mediastinal lymphadenopathy as described. Small bilateral pleural effusions with bibasilar atelectasis and/or infiltrates more prominent at the left lung base. Electronically Signed: Jaren Weber MD at 14:09 EDT ,
[2022-06-16 13:30] LABS: Magnesium 2.1 mg/dL (1.6-2.6); Potassium 4.8 mmol/L (3.5-5.1)
[2022-06-16] MEDS: Furosemide 40 MG/4 ML Vial IV (14:15)
[2022-06-16] MEDS: Carvedilol 3.125 MG TABLET PO ×2 (14:17→17:23)
[2022-06-16] MEDS: Lisinopril 2.5 MG Tablet PO ×2 (14:17→22:28)
--- NOTE | 2022-06-16 14:51 | CASEMGMT ---
This RN CM to room to complete CM assessment and pt is sleeping without distress. Will attempt again later. SStaten RN CM
--- NOTE | 2022-06-16 19:04 | NURSING ---
Charting reviewed with Agatha Camacho RN
[2022-06-16] MEDS: Atorvastatin Calcium 80 MG Tablet PO (22:29)
[2022-06-17] VITALS (40 sets, daily range): BP systolic 81–111; BP diastolic 53–79; PULSE 58–163; RESP 17–28; TEMP 36.1–37.3; O2SAT 92–99
[2022-06-17 05:31] LABS: Hematocrit 38.6 % (40-54); Hemoglobin 12.9 g/dL (13.0-16.5); Mean Corp Hgb Conc 33.4 g/dL (32-36); Mean Corpuscular Hgb 30.7 pg (27.0-32.0); Mean Corpuscular Volume 91.9 fL (80-94); Mean Platelet Vol. 9.4 fl (6.2-12.0); Platelet Count 215 K/mm3 (150-450); RBC Distribution Width CV 13.6 % (11.6-14.6); RBC Distribution Width SD 45.7 fl (35.1-43.9); White Blood Count 12.5 K/mm3 (4.4-11.0)
[2022-06-17 06:15] LABS: ALB/GLOB Ratio 0.8 RATIO (0.9-2.4); AST(SGOT) 16 U/L (15-37); Alanine Aminotransfer ALT/SGPT 12 U/L (16-61); Albumin, Serum 2.4 g/dL (3.2-5.0); Alkaline Phosphatase 49 U/L (45-117); Anion Gap 6 (5-15); BUN 22 mg/dL (7-18); BUN/Creat Ratio 20.8 RATIO (10-20); Calcium,Total 7.9 mg/dL (8.5-10.1); Chloride 103 mmol/L (98-107); Cholesterol 123 mg/dL (200); Creatinine, Serum 1.06 mg/dL (0.70-1.30); EST Glomerular Filtration Rate 71 mL/min (>60); Est Glom Filt Rate - Afr Amer 86 mL/min (>60); Estimated Creatinine Clearance 51.88 ml/min; Globulin 3.2 g/dL (2.2-4.2); Glucose 99 mg/dL (74-106); High Density Lipoprotein 42 mg/dL; Potassium 3.9 mmol/L (3.5-5.1); Protein, Total 5.6 g/dL (6.4-8.2); Sodium Level 135 mmol/L (136-145); Thyroid Stim Hormone (TSH) 0.91 uIU/mL (0.358-3.74); Triglycerides 71 mg/dL; Very Low Density Lipoprotein 14 mg/dL (5-40)
[2022-06-17] MEDS: Metoprolol Tartrate 5 MG/5 ML Vial 2.5 MG IV (08:21)
[2022-06-17] MEDS: Aspirin E.C. 81 MG Tablet PO (08:22)
--- NOTE | 2022-06-17 09:43 | NURSING ---
0935-This RN taking over care of pt at this time.
--- NOTE | 2022-06-17 09:47 | PCM.PN.CARD ---
Subjective Subjective Patient denying any complaints. Does not complain of any palpitations. No shortness of breath. Objective Data Telemetry monitoring shows atrial fibrillation with rapid ventricular response. Vital Signs: Vital Signs Temp Pulse Resp BP Pulse Ox O2 Del Method O2 Flow Rate 97.1 F L 127 H 18 99/79 98 Nasal Cannula 2 06/17/22 09:26 06/17/22 09:40 06/17/22 09:40 06/17/22 09:40 06/17/22 09:40 06/17/22 09:40 06/17/22 09:40 Oxygen Flow Rate (L/min) 2 Oxygen Delivery Method Nasal Cannula Weight: 215 lb 9.793 oz Body Mass Index (BMI) 31.8 Intake & Output: Intake and Output for Last 24 Hours 06/15/22 06/16/22 06/17/22 23:59 23:59 23:59 Intake Total 530 / 530 Output Total 0 / 0 Balance 530 / 530 Lab / Micro Data Attestation: I reviewed the patient's lab results. Result Diagrams: 06/17/22 05:24 06/17/22 05:24 Labs: Laboratory Results - last 24 hr 06/16/22 07:30: PT 13.4, INR 1.1, APTT 36.7 H 06/16/22 09:33: Troponin I High Sens 1326 H* 06/16/22 13:05: Potassium 4.8, Magnesium 2.1 06/17/22 05:24: WBC 12.5 H, RBC 4.20 L, Hgb 12.9 L, Hct 38.6 L, MCV 91.9, MCH 30.7, MCHC 33.4, RDW Std Deviation 45.7 H, RDW Coeff of Brent 13.6, Plt Count 215, MPV 9.4 06/17/22 05:24: Sodium 135 L, Potassium 3.9, Chloride 103, Carbon Dioxide 26.0, Anion Gap 6, BUN 22 H, Creatinine 1.06, Estim Creat Clear Calc 51.88, Est GFR (MDRD) Af Amer 86, Est GFR (MDRD) Non-Af 71, BUN/Creatinine Ratio 20.8 H, Glucose 99, Calcium 7.9 L, Total Bilirubin 2.00 H, AST 16, ALT 12 L, Alkaline Phosphatase 49, Total Protein 5.6 L, Albumin 2.4 L, Globulin 3.2, Albumin/Globulin Ratio 0.8 L, Triglycerides 71, Cholesterol 123, LDL Cholesterol 67, VLDL Cholesterol 14, HDL Cholesterol 42, TSH 0.91 Rhythm Strip Rhythm Strip: [facility] Cardiology Labs/Tests 06/16/22 07:30: PT 13.4, INR 1.1, APTT 36.7 H 06/16/22 13:05: Potassium 4.8, Magnesium 2.1 06/17/22 05:24: WBC 12.5 H, RBC 4.20 L, Hgb 12.9 L, Hct 38.6 L, MCV 91.9, MCH 30.7, MCHC 33.4, Plt Count 215, MPV 9.4 06/17/22 05:24: Sodium 135 L, Potassium 3.9, Chloride 103, Carbon Dioxide 26.0, Anion Gap 6, BUN 22 H, Creatinine 1.06, Est GFR (MDRD) Af Amer 86, Est GFR (MDRD) Non-Af 71, BUN/Creatinine Ratio 20.8 H, Glucose 99, Calcium 7.9 L, Total Bilirubin 2.00 H, Triglycerides 71, Cholesterol 123, LDL Cholesterol 67, VLDL Cholesterol 14, HDL Cholesterol 42 Rhythm: EKG: ECHO: Stress Test: Cardiac Cath: PCI: CT Surgery: Holter monitor: EPS: PPM: CXR: Chest CT Scan: Radiography Diagnostic Testing: Radiology Impression Chest CTA 06/16/22 12:30 IMPRESSION: No evidence of pulmonary embolism. Mediastinal lymphadenopathy as described. Small bilateral pleural effusions with bibasilar atelectasis and/or infiltrates more prominent at the left lung base. Electronically Signed: Jaren Weebr MD at 14:09 EDT , Physical Exam Narrative No apparent distress. Heart sounds 1 and 2 are noted. Irregularly irregular. Tachycardic. Chest examination shows slightly decreased breath sounds at bilateral bases. Abdomen soft. Neurological alert oriented x3. No ankle edema. Assessment & Plan Assessment/Plan (1) Acute non-ST elevation myocardial infarction (NSTEMI): PLAN: Heavily calcified coronary arteries however no lesion more than 70% stenosis. NELLIE-3 flow in all epicardial blood vessels. Troponin elevation likely because of Takotsubo's cardiomyopathy. Continue aspirin. Start on low-dose beta-blockers and escalate doses as tolerated. Start low-dose COLIN inhibitors. (2) Cardiomyopathy: PLAN: Nonischemic. 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 Start on beta-blockers and COLIN inhibitors. Start on Lasix in view of elevated LVEDP. (3) Atrial fibrillation: PLAN: Start on amiodarone to control ventricular rate. Started on anticoagulation. Patient denies any history of bleeding problems. Denies any history of mets to the brain. Understands risks and benefits of anticoagulation. (4) Coronary artery disease: PLAN: Continue aspirin. Lipid management as per internal medicine. Beta-blockers. (5) Myasthenia gravis: PLAN: As per internal medicine. 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
[2022-06-17] MEDS: Amiodarone 360 MG in Dextrose 5% Viaflo Bag 192.8 ML 33.3 MG CONT INF (09:52)
[2022-06-17 10:09] LABS: Hemoglobin A1c 5.2 % (3.8-5.6)
--- NOTE | 2022-06-17 10:37 | PCM.PN.HOSP ---
Subjective Subjective DOS: 06/17/2022 CC: New onset A. fib Reports he has had no further chest pain however this morning he went into A. fib with heart rate anywhere from low 100s to 160 though reported being Asymptomatic. Denies any chest pain or shortness of breath. Has been eating well. Denies any new swelling. Given a dose of metoprolol and started on amiodarone drip per cardiology. On several rechecks he reports he continues to feel well Objective Data Objective Data Vital Signs: Vital Signs Temp Pulse Resp BP Pulse Ox O2 Del Method O2 Flow Rate 97.1 F L 128 H 22 H 86/60 L 97 Nasal Cannula 2 06/17/22 09:26 06/17/22 10:00 06/17/22 10:00 06/17/22 10:00 06/17/22 10:00 06/17/22 10:00 06/17/22 10:00 Oxygen Flow Rate (L/min) 2 Oxygen Delivery Method Nasal Cannula Weight: 97.8 kg Body Mass Index (BMI) 31.8 Intake & Output: Intake and Output for Last 24 Hours 06/15/22 06/16/22 06/17/22 23:59 23:59 23:59 Intake Total 530 / 530 107.44 / 107.44 Output Total 0 / 0 Balance 530 / 530 107.44 / 107.44 Lab / Micro Data Result Diagrams: 06/17/22 05:24 06/17/22 05:24 Labs: Laboratory Results - last 24 hr 06/16/22 13:05: Potassium 4.8, Magnesium 2.1 06/17/22 05:24: WBC 12.5 H, RBC 4.20 L, Hgb 12.9 L, Hct 38.6 L, MCV 91.9, MCH 30.7, MCHC 33.4, RDW Std Deviation 45.7 H, RDW Coeff of Brent 13.6, Plt Count 215, MPV 9.4 06/17/22 05:24: Sodium 135 L, Potassium 3.9, Chloride 103, Carbon Dioxide 26.0, Anion Gap 6, BUN 22 H, Creatinine 1.06, Estim Creat Clear Calc 51.88, Est GFR (MDRD) Af Amer 86, Est GFR (MDRD) Non-Af 71, BUN/Creatinine Ratio 20.8 H, Glucose 99, Calcium 7.9 L, Total Bilirubin 2.00 H, AST 16, ALT 12 L, Alkaline Phosphatase 49, Total Protein 5.6 L, Albumin 2.4 L, Globulin 3.2, Albumin/Globulin Ratio 0.8 L, Triglycerides 71, Cholesterol 123, LDL Cholesterol 67, VLDL Cholesterol 14, HDL Cholesterol 42, TSH 0.91 06/17/22 05:24: Hemoglobin A1c 5.2 Radiography Diagnostic Testing: Radiology Impression Echocardiogram 06/16/22 09:51 Interpretation Summary Mildly dilated left ventricle. The left ventricular ejection fraction is 20-25 %. Diastolic function is indeterminate. Anterior and apial akinesis. Only basal part of the heart moving. Suspect LV apical thrombus. The left atrium is mildly enlarged. Small pericardial effusion. Ordering Physician: Radha Del Toro Performed By: Conrad Swann [facility] Chest CTA 06/16/22 12:30 IMPRESSION: No evidence of pulmonary embolism. Mediastinal lymphadenopathy as described. Small bilateral pleural effusions with bibasilar atelectasis and/or infiltrates more prominent at the left lung base. Electronically Signed: Jraen Weber MD at 14:09 EDT , Rhythm Strip Rhythm Strip: A-fib Physical Exam Const alert and oriented x3 HEENT normocephalic and head/scalp atraumatic Eyes EOMs intact bilaterally Neck supple Resp normal respiratory effort and clear to auscultation bilaterally Cardio Cardio Narrative: Tachycardic, irregular irregular GI soft to palpation, non-tender and non-distended Extremity normal to inspection Skin no rashes or lesions noted Neuro moves all extremities Psych affect normal Assessment & Plan Assessment/Plan (1) Acute non-ST elevation myocardial infarction (NSTEMI): PLAN: Plan #A. fib with RVR New onset, given blood pressure difficulty tolerating beta-blockers On amiodarone drip Cardiology following Anticoagulation with Eliquis started #Heart failure with reduced ejection fraction, unclear if acute or chronic given no recent echo available There is anterior and apical kinesis with possible LV apical thrombus Will be on COLIN and beta-gabrielle as tolerated but given blood pressure unable to do so On amiodarone drip due to the A. fib with RVR Has been getting Lasix as well # Troponin leak Troponins elevated to 1216 with substernal chest pain that has not been relieved EKGs in the ED not suggestive of STEMI Cardiology already contacted emergency department and plan to take patient to the Leadership Development Consultant and recommended heparin drip Admit to PCU Already received full dose aspirin Daily aspirin and statin Beta-gabrielle within 24 hours Already on ARB as an outpatient Will obtain hemoglobin A1c and lipid panel Will order echocardiogram Will follow-up post cath 06/17/2022: Cardiac cath on 06/16 showed calcified coronary arteries however no lesion more than 70% stenosis. It was felt that troponin elevation was likely due to Takotsubo cardiomyopathy. Advised to continue aspirin and started on low-dose beta-gabrielle as well as COLIN. Had a slightly elevated D-dimer as well and CTA was performed which did not show PE #Metastatic melanoma Follows with Dr. Albarran with oncology Was previously on Keytruda but did not tolerate this and reports he currently follows every 3 months but is not on any medication at this time #DVT ppx: On Eliquis Dana Harvey MD Charges/Coding Visit Charges Inpatient E&M: 34875 Subs Hosp L2
[2022-06-17] MEDS: APIXABAN 5 MG TABLET PO ×2 (10:47→21:34)
--- NOTE | 2022-06-17 11:00 | CASEMGMT ---
RN SIOBHAN Face to Face with patient for initial transition planning/care coordination assessment. RN CM introduced self and role at [facility]. Patient lying in bed, alert and oriented. Patient willing to participate in assessment and is able to answer all questions appropriately. Care providers, pharmacy, and demographics verified. Patient wishes to discharge home, denies need for home health at this time. Patient states he has no further needs or concerns at this time. CM to follow for discharge planning needs that may arise. PCP: MIRTHA Vaca Specialists: Deion, oncologist Preferred Pharmacy: [facility]; [facility] retail at discharge Insurance: [employer] Prescription Benefit: yes Living Will/HPOA: yes, step daughter Vale Hernandez LNOK: , step daughter and son Living Arrangements: Patient lives with in a mobile home with 4 steps and railing to enter the home. Patient states she is independent at home. Transportation: self, daughter DME/HHC: Patient states he has shower chair, raised toilet, cane, walker, and grab bars at home. No previous HHC or SNF Disposition Plan: Patient to discharge home with family support and follow-up plans in place. Catina ALONZO, RN, CM
[2022-06-17] MEDS: Digoxin 250 MCG/ML Ampul 500 MCG IV (15:49)
[2022-06-17] MEDS: 0.9% Saline Lock 10 ML Syringe IV (15:53)
[2022-06-17] MEDS: Amiodarone 360 MG in Dextrose 5% Viaflo Bag 192.8 ML 16.7 MG CONT INF (16:35)
[2022-06-17] MEDS: Atorvastatin Calcium 80 MG Tablet PO (21:32)
[2022-06-17] MEDS: Lisinopril 2.5 MG Tablet PO (21:34)
--- NOTE | 2022-06-17 22:21 | EKG12_ITS ---
Test Reason : RYTHM CHANGE Blood Pressure : / mmHG Vent. Rate : 053 BPM Atrial Rate : 053 BPM P-R Int : 132 ms QRS Dur : 088 ms QT Int : 398 ms P-R-T Axes : 035 078 082 degrees QTc Int : 373 ms Poor data quality, interpretation may be adversely affected Sinus bradycardia Anteroseptal infarct (cited on or before 16-JUN-2022) Abnormal ECG When compared with ECG of 17-JUN-2022 22:44, No significant change was found Confirmed by AUNDREA SOLIS, ANN ([id number]), editor city CATHERINE HOBBS ([id number]) on 06/22/2022 1:23:31 PM Referred By: VIVIAN Confirmed By:ANN GUILLAUME MD
[2022-06-18] VITALS (21 sets, daily range): BP systolic 101–126; BP diastolic 55–77; PULSE 55–110; RESP 17–110; TEMP 36.5–36.6; O2SAT 92–98
[2022-06-18 05:04] LABS: Absolute Lymphocyte Count 1.01 X10^3/uL (0.83-4.51); Absolute Neutrophil Count 8.4 X10^3/uL (2.0-7.7); Basophil# 0.05 X10^3/uL; Basophil% 0.5 % (0-1); Eosinophil# 0.12 X10^3/uL; Eosinophils% 1.1 % (0-5); Hematocrit 43.3 % (40-54); Hemoglobin 13.8 g/dL (13.0-16.5); Lymphocyte # 1.01 X10^3/ul (0.83-4.51); Lymphocyte % 9.4 % (19-41); Mean Corp Hgb Conc 31.9 g/dL (32-36); Mean Corpuscular Hgb 30.9 pg (27.0-32.0); Mean Corpuscular Volume 96.9 fL (80-94); Mean Platelet Vol. 9.8 fl (6.2-12.0); Monocyte# 1.04 X10^3/uL; Monocyte% 9.7 % (0-10); NRBC Flagged by Analyzer 0 % (0-5); Neutrophil # 8.44 X10^3/uL (2.7-7.7); Neutrophil % 78.8 % (47-70); Platelet Count 216 K/mm3 (150-450); RBC Distribution Width CV 13.4 % (11.6-14.6); RBC Distribution Width SD 48.2 fl (35.1-43.9); Red Blood Count 4.47 M/mm3 (4.6-6.2); White Blood Count 10.7 K/mm3 (4.4-11.0)
[2022-06-18 06:03] LABS: Anion Gap 8 (5-15); BUN 23 mg/dL (7-18); BUN/Creat Ratio 26.9 RATIO (10-20); Calcium,Total 8.7 mg/dL (8.5-10.1); Chloride 101 mmol/L (98-107); Creatinine, Serum 0.85 mg/dL (0.70-1.30); Digoxin Level 1.11 ng/mL (0.80-2.00); EST Glomerular Filtration Rate 91 mL/min (>60); Est Glom Filt Rate - Afr Amer 110 mL/min (>60); Estimated Creatinine Clearance 64.69 ml/min; Glucose 95 mg/dL (74-106); Magnesium 2.2 mg/dL (1.6-2.6); Potassium 4.1 mmol/L (3.5-5.1); Sodium Level 134 mmol/L (136-145)
[2022-06-18] MEDS: Amiodarone 360 MG in Dextrose 5% Viaflo Bag 192.8 ML 16.7 MG CONT INF (06:48)
[2022-06-18] MEDS: Aspirin E.C. 81 MG Tablet PO (08:11)
[2022-06-18] MEDS: Carvedilol 3.125 MG TABLET PO ×2 (08:11→16:58)
--- NOTE | 2022-06-18 08:28 | PN.HOSP_ITS ---
Subjective Subjective DOS: 06/18/2022 CC: Follow-up A. fib and chest pain Seen briefly this morning given he was about to use the restroom. Had not voiced any complaints at that time and heart rate was definitely improved as was blood pressure. We will follow-up again later this morning to discuss further overall appears to be improving Objective Data Objective Data Vital Signs: Vital Signs Temp Pulse Resp BP Pulse Ox O2 Del Method O2 Flow Rate 97.8 F 64 20 H 118/59 L 95 Room Air 2 06/18/22 06:00 06/18/22 08:00 06/18/22 08:00 06/18/22 08:00 06/18/22 08:00 06/18/22 08:16 06/17/22 23:00 Oxygen Flow Rate (L/min) 2 Oxygen Delivery Method Room Air Weight: 97.8 kg Body Mass Index (BMI) 31.8 Intake & Output: Intake and Output for Last 24 Hours 06/16/22 06/17/22 06/18/22 23:59 23:59 23:59 Intake Total 530 / 530 1530.16 / 1546.86 112.88 / 112.88 Output Total 0 / 0 Balance 530 / 530 1530.16 / 1546.86 112.88 / 112.88 Lab / Micro Data Result Diagrams: 06/18/22 04:33 06/18/22 04:33 Labs: Laboratory Results - last 24 hr 06/17/22 05:24: Hemoglobin A1c 5.2 06/18/22 04:33: WBC 10.7, RBC 4.47 L, Hgb 13.8, Hct 43.3, MCV 96.9 H D, MCH 30.9, MCHC 31.9 L, RDW Std Deviation 48.2 H, RDW Coeff of Brent 13.4, Plt Count 216, MPV 9.8, Immature Gran % (Auto) 0.500, Neut % (Auto) 78.8 H, Lymph % (Auto) 9.4 L, Rincon % (Auto) 9.7, Eos % (Auto) 1.1, Baso % (Auto) 0.5, Absolute Neuts (auto) 8.4 H, Absolute Lymphs (auto) 1.01, Nucleated RBC % 0 06/18/22 04:33: Sodium 134 L, Potassium 4.1, Chloride 101, Carbon Dioxide 25.0, Anion Gap 8, BUN 23 H, Creatinine 0.85, Estim Creat Clear Calc 64.69, Est GFR (MDRD) Af Amer 110, Est GFR (MDRD) Non-Af 91, BUN/Creatinine Ratio 26.9 H, Glucose 95, Calcium 8.7, Magnesium 2.2 06/18/22 04:33: Digoxin 1.11 Radiography Diagnostic Testing: Radiology Impression Echocardiogram 06/16/22 09:51 Interpretation Summary Mildly dilated left ventricle. The left ventricular ejection fraction is 20-25 %. Diastolic function is indeterminate. Anterior and apial akinesis. Only basal part of the heart moving. Suspect LV apical thrombus. The left atrium is mildly enlarged. Small pericardial effusion. Ordering Physician: Radha Del Toro Performed By: Conrad Swann RCS Rhythm Strip Rhythm Strip: A-fib Physical Exam Const alert and oriented x3 HEENT normocephalic and head/scalp atraumatic Eyes EOMs intact bilaterally Neck supple Resp normal respiratory effort Cardio regular rate GI non-distended Extremity Extremity Narrative: Moving all EXTR Skin no rashes or lesions noted Neuro Neuro Narrative: No overt focal neurologic deficits appreciated Psych affect normal Assessment & Plan Assessment/Plan (1) Acute non-ST elevation myocardial infarction (NSTEMI): PLAN: Plan #A. fib with RVR New onset, given blood pressure difficulty tolerating beta-blockers On amiodarone drip Cardiology following Anticoagulation with Eliquis started 06/18/2022: Heart rate back within normal limits. On amiodarone, received dig yesterday as well. On carvedilol 3.125 mg twice daily. Eliquis 5 mg twice daily. Cardiology following #Heart failure with reduced ejection fraction, unclear if acute or chronic given no recent echo available There is anterior and apical kinesis with possible LV apical thrombus Will be on COLIN and beta-gabrielle as tolerated but given blood pressure unable to do so On amiodarone drip due to the A. fib with RVR Has been getting Lasix as well 06/18: On Lasix, beta-gabrielle, lisinopril. Receiving amiodarone as well for A. fib with RVR. Did get dose of dig. Daily weights # Troponin leak Troponins elevated to 1216 with substernal chest pain that has not been relieved EKGs in the ED not suggestive of STEMI Cardiology already contacted emergency department and plan to take patient to the Supply Chain Procurement Manager and recommended heparin drip Admit to PCU Already received full dose aspirin Daily aspirin and statin Beta-gabrielle within 24 hours Already on ARB as an outpatient Will obtain hemoglobin A1c and lipid panel Will order echocardiogram Will follow-up post cath 06/17/2022: Cardiac cath on 06/16 showed calcified coronary arteries however no lesion more than 70% stenosis. It was felt that troponin elevation was likely due to Takotsubo cardiomyopathy. Advised to continue aspirin and started on low-dose beta-gabrielle as well as COLIN. Had a slightly elevated D-dimer as well and CTA was performed which did not show PE #Metastatic melanoma Follows with Dr. Albarran with oncology Was previously on Keytruda but did not tolerate this and reports he currently follows every 3 months but is not on any medication at this time #DVT ppx: On Yumiko Harvey MD Charges/Coding Visit Charges Inpatient E&M: 15956 Subs Hosp L2
[2022-06-18] MEDS: Lisinopril 2.5 MG Tablet PO ×2 (09:32→21:44)
[2022-06-18] MEDS: APIXABAN 5 MG TABLET PO ×2 (09:32→21:44)
[2022-06-18] MEDS: Furosemide 20 MG Tablet PO (09:32)
[2022-06-18] MEDS: Amiodarone 200 MG Tablet PO (11:52)
[2022-06-18] MEDS: 0.9% Saline Lock 10 ML Syringe IV (11:53)
--- NOTE | 2022-06-18 12:18 | PCM.PN.CARD ---
Subjective Subjective Converted to normal sinus rhythm spontaneously. Denies any complaints. No chest pain. No shortness of breath. Objective Data Vital Signs: Vital Signs Temp Pulse Resp BP Pulse Ox O2 Del Method O2 Flow Rate 97.9 F 55 L 19 H 101/61 95 Room Air 2 06/18/22 10:02 06/18/22 11:00 06/18/22 11:00 06/18/22 11:00 06/18/22 11:00 06/18/22 11:00 06/17/22 23:00 Oxygen Flow Rate (L/min) 2 Oxygen Delivery Method Room Air Weight: 215 lb 9.793 oz Body Mass Index (BMI) 31.8 Intake & Output: Intake and Output for Last 24 Hours 06/16/22 06/17/22 06/18/22 23:59 23:59 23:59 Intake Total 530 / 530 1530.16 / 1546.86 177.45 / 177.45 Output Total 0 / 0 Balance 530 / 530 1530.16 / 1546.86 177.45 / 177.45 Lab / Micro Data Result Diagrams: 06/18/22 04:33 06/18/22 04:33 Labs: Laboratory Results - last 24 hr 06/18/22 04:33: WBC 10.7, RBC 4.47 L, Hgb 13.8, Hct 43.3, MCV 96.9 H D, MCH 30.9, MCHC 31.9 L, RDW Std Deviation 48.2 H, RDW Coeff of Brent 13.4, Plt Count 216, MPV 9.8, Immature Gran % (Auto) 0.500, Neut % (Auto) 78.8 H, Lymph % (Auto) 9.4 L, [place] % (Auto) 9.7, Eos % (Auto) 1.1, Baso % (Auto) 0.5, Absolute Neuts (auto) 8.4 H, Absolute Lymphs (auto) 1.01, Nucleated RBC % 0 06/18/22 04:33: Sodium 134 L, Potassium 4.1, Chloride 101, Carbon Dioxide 25.0, Anion Gap 8, BUN 23 H, Creatinine 0.85, Estim Creat Clear Calc 64.69, Est GFR (MDRD) Af Amer 110, Est GFR (MDRD) Non-Af 91, BUN/Creatinine Ratio 26.9 H, Glucose 95, Calcium 8.7, Magnesium 2.2 06/18/22 04:33: Digoxin 1.11 Rhythm Strip Rhythm Strip: A-fib Cardiology Labs/Tests 06/18/22 04:33: WBC 10.7, RBC 4.47 L, Hgb 13.8, Hct 43.3, MCV 96.9 H D, MCH 30.9, MCHC 31.9 L, Plt Count 216, MPV 9.8, Immature Gran % (Auto) 0.500, Neut % (Auto) 78.8 H, Lymph % (Auto) 9.4 L, [place] % (Auto) 9.7, Eos % (Auto) 1.1, Baso % (Auto) 0.5, Absolute Neuts (auto) 8.4 H, Nucleated RBC % 0 06/18/22 04:33: Sodium 134 L, Potassium 4.1, Chloride 101, Carbon Dioxide 25.0, Anion Gap 8, BUN 23 H, Creatinine 0.85, Est GFR (MDRD) Af Amer 110, Est GFR (MDRD) Non-Af 91, BUN/Creatinine Ratio 26.9 H, Glucose 95, Calcium 8.7, Magnesium 2.2 06/18/22 04:33: Digoxin 1.11 Rhythm: EKG: ECHO: Stress Test: Cardiac Cath: PCI: CT Surgery: Holter monitor: EPS: PPM: CXR: Chest CT Scan: Physical Exam Narrative Heart sounds 1 and 2 are normal. Chest clear to auscultation bilaterally. Alert oriented x3. Assessment & Plan Assessment/Plan (1) Acute non-ST elevation myocardial infarction (NSTEMI): PLAN: Stable. Continue medical management. (2) Cardiomyopathy: PLAN: Nonischemic. 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 Started on beta-blockers and COLIN inhibitors. Lasix. Suspect LV apical thrombus. On Eliquis. Discussed with patient. Risks and benefits of anticoagulation explained. Understands. Agrees. (3) Atrial fibrillation: PLAN: Converted to normal sinus rhythm. Change amiodarone to p.o. Continue on Eliquis. (4) Coronary artery disease: PLAN: Continue aspirin. Lipid management as per internal medicine. Beta-blockers. (5) Myasthenia gravis: PLAN: As per internal medicine. 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
--- NOTE | 2022-06-18 14:52 | CASEMGMT ---
SW was reviewing patient's chart to verify his advance directives. Patient has a Healthcare Power of Electronic Train Control Technician (HCPOA) on file and his , Mireille is listed as his HCPOA. Patient told RN SIOBHAN and admission nurse that his step daughter Vale is his HCPOA. SW met with patient. Introduced self and role at [facility]. SW explained this to patient. Patient said that it is fine to have his listed as POA. Patient said as long as she is alive he is fine with his being his HCPOA. Raquel LAMB
[2022-06-18] MEDS: Atorvastatin Calcium 80 MG Tablet PO (21:44)
[2022-06-19] VITALS (7 sets, daily range): BP systolic 118–139; BP diastolic 57–66; PULSE 60–69; RESP 14–16; TEMP 36.4–37.1; O2SAT 94–97
[2022-06-19 05:58] LABS: Absolute Lymphocyte Count 0.99 X10^3/uL (0.83-4.51); Absolute Neutrophil Count 6.7 X10^3/uL (2.0-7.7); Basophil# 0.04 X10^3/uL; Basophil% 0.4 % (0-1); Eosinophil# 0.21 X10^3/uL; Eosinophils% 2.4 % (0-5); Hematocrit 38.2 % (40-54); Lymphocyte # 0.99 X10^3/ul (0.83-4.51); Lymphocyte % 11.1 % (19-41); Mean Platelet Vol. 10.2 fl (6.2-12.0); Monocyte# 0.89 X10^3/uL; NRBC Flagged by Analyzer 0 % (0-5); Neutrophil # 6.74 X10^3/uL (2.7-7.7); Neutrophil % 75.9 % (47-70); Platelet Count 247 K/mm3 (150-450); RBC Distribution Width CV 13.2 % (11.6-14.6); RBC Distribution Width SD 44.2 fl (35.1-43.9); White Blood Count 8.9 K/mm3 (4.4-11.0)
[2022-06-19 06:34] LABS: Anion Gap 7 (5-15); BUN 19 mg/dL (7-18); BUN/Creat Ratio 22.4 RATIO (10-20); Calcium,Total 8.1 mg/dL (8.5-10.1); Chloride 101 mmol/L (98-107); Creatinine, Serum 0.85 mg/dL (0.70-1.30); EST Glomerular Filtration Rate 92 mL/min (>60); Est Glom Filt Rate - Afr Amer 111 mL/min (>60); Estimated Creatinine Clearance 64.69 ml/min; Glucose 96 mg/dL (74-106); Potassium 3.9 mmol/L (3.5-5.1); Sodium Level 134 mmol/L (136-145)
[2022-06-19] MEDS: Amiodarone 200 MG Tablet PO (09:48)
[2022-06-19] MEDS: Lisinopril 2.5 MG Tablet PO (09:48)
[2022-06-19] MEDS: Carvedilol 3.125 MG TABLET PO ×2 (09:48→17:40)
[2022-06-19] MEDS: Aspirin E.C. 81 MG Tablet PO (09:49)
[2022-06-19] MEDS: Furosemide 20 MG Tablet PO (09:49)
[2022-06-19] MEDS: APIXABAN 5 MG TABLET PO (09:49)
--- NOTE | 2022-06-19 16:14 | DCINST_ITS ---
Discharge Instructions Diet Discharge Diet: - (Limit your sodium to 3 g/day) Activity Discharge Activity: Return to Normal Activity Follow Up Care Test Results: Test results from this visit will be discussed in further detail at your follow- up appointment, if applicable. Discharge Plan Admission Admit Date/Time: 06/16/22 08:31 Primary Reason for Your Visit: Chest pain Attending Provider: Dana Harvey Primary Care Provider: Joyce Vaca NP Instructions Patient Instructions: AFib Dc, Cardiomyopathy Dc, Takotsubo Cardiomyopathy Additional Instructions / Restrictions: *Please take this with you to your next doctors appointment* ?You are found to have an irregular heart beat on admission, atrial fibrillation, you have been started on amiodarone 200 mg daily for this, carvedilol 3.125mg twice daily and a blood thinner Eliquis 5 mg twice daily ?You were found to have a condition called Takotsubo cardiomyopathy (TCM) is a type of heart condition also known as stress-induced cardiomyopathy or broken heart syndrome. It causes sudden chest pain. The symptoms of TCM can be like those of a heart attack ? Because of this you have been started on a water pill, furosemide (Lasix) to milligrams daily as well as lisinopril 2.5 mg twice daily and aspirin and atorvastatin. ? All of your new medications have been sent to your preferred pharmacy on file ? Please stop taking your irbesartan?hydrochlorothiazide, these new medications will take the place of this ? Please follow with cardiology upon discharge, please call the office to schedule hospital follow-up appointment, . -Please call your primary care provider's office upon discharge to schedule a hospital follow up within 1 week. -For any concerning signs or symptoms please call 911 or proceed to the nearest emergency department -Weigh yourself every day. A sudden weight gain can mean you are retaining fluid. Weigh yourself at the same time of day and in the same kind of clothes. Ideally, weigh yourself first thing in the morning after you empty your bladder, but before you eat breakfast. -Please call your physician if your weight goes up by more than 2 pounds in 1 day or 5 pounds in 1 week. This can be a sign that you are retaining more fluid than you should be. Clues to weight gain include checking your ankles for swelling, or noticing you are short of breath when you lie down -Please limit your sodium intake to less than 3 g/day. Here are tips: Limit canned, dried, packaged, and fast foods. Don't add salt to your food at the table. Season foods with herbs instead of salt when you cook. When you eat out, ask that the parcel post carrier not add any salt to your dish. Don't eat fried or greasy foods. Be careful of bottled beverages. They can contain a lot of salt -Call 911 right away if you have: -Severe shortness of breath, such that you can't catch your breath even while resting -Severe chest pain that does not resolve with rest or nitroglycerin -[place], foamy mucus with cough and shortness of breath -An ongoing rapid or irregular heartbeat -Passing out or fainting -Stroke symptoms such as sudden numbness or weakness on one side of your face, arm, or leg or sudden confusion, trouble speaking or vision changes Discharge Orders/Prescriptions Prescriptions: New atorvastatin 80 mg Tablet 80 mg PO QHS 30 Days Qty: 30 0RF amiodarone 200 mg Tablet 200 mg PO DAILY 30 Days Qty: 30 0RF aspirin 81 mg Tablet,Delayed Release (Dr/Ec) 81 mg PO BREAKFAST 30 Days Qty: 30 0RF carvedilol 3.125 mg Tablet 3.125 mg PO BIDCM 30 Days Qty: 60 0RF furosemide 20 mg Tablet 20 mg PO DAILY 30 Days Qty: 30 0RF lisinopril 2.5 mg Tablet 2.5 mg PO BID 30 Days Qty: 60 0RF Eliquis 5 mg Tablet 5 mg PO BID 30 Days Qty: 60 0RF Discontinued saw palmetto 160 mg Capsule 320 mg PO DAILY irbesartan-hydrochlorothiazide 300-12.5 mg tablet 1 tab PO DAILY Referrals / Follow Up: Radha Del Toro MD [Med Staff - Active Staff] - See Referral Note (Please call the cardiology office to schedule a hospital follow-up appointment upon discharge) Joyce Vaca NP, GOVERNMENT AFFAIRS FELLOW-C [Primary Care Provider] - Within 1 Week Disposition Disposition (needs filled in before D/C Order can be placed): Home, Self Care
--- NOTE | 2022-06-19 16:31 | PCM.DC.SUM ---
Providers Date of Admission: 06/16/22 Date of Discharge: 06/19/22 Primary Care Physician: JUAN A Fox Reason For Visit: NSTEMI Diagnosis Discharge Diagnosis (1) Acute non-ST elevation myocardial infarction (NSTEMI): Status: Acute Code(s): I21.4 - Non-ST elevation (NSTEMI) myocardial infarction (2) Cardiomyopathy: Status: Acute Code(s): I42.9 - Cardiomyopathy, unspecified (3) Atrial fibrillation: Status: Acute Code(s): I48.91 - Unspecified atrial fibrillation (4) Coronary artery disease: Status: Acute Code(s): I25.10 - Atherosclerotic heart disease of [place] coronary artery without angina pectoris (5) Myasthenia gravis: Status: Resolved Code(s): G70.00 - Myasthenia gravis without (acute) exacerbation (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 fib with RVR #Heart failure with reduced ejection fraction, unclear if acute or chronic given no recent echo available # Troponin leak #Metastatic melanoma Medications at Discharge Home Medications amiodarone 200 mg tablet 200 mg PO DAILY 30 days #30 tabs 06/19/22 apixaban 5 mg tablet (Eliquis) 5 mg PO BID 30 days #60 tabs 06/19/22 aspirin 81 mg tablet,delayed release 81 mg PO BREAKFAST 30 days #30 tabs 06/19/22 atorvastatin 80 mg tablet 80 mg PO QHS 30 days #30 tabs 06/19/22 carvedilol 3.125 mg tablet 3.125 mg PO BIDCM 30 days #60 tabs 06/19/22 furosemide 20 mg tablet 20 mg PO DAILY 30 days #30 tabs 06/19/22 lisinopril 2.5 mg tablet 2.5 mg PO BID 30 days #60 tabs 06/19/22 Hospital Course Procedures Transthoracic echo Summary of Care Provided Minutes Spent on Discharge: 35 Hospital Course: Mr. 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 The night prior to admission he had some epigastric/substernal pain that he attributed to reflux but took a full dose aspirin and went to bed for several hours. He woke up and continued to have the pain and took more aspirin but given it was persisting came to the ED there were questionable ST changes and he had an elevated troponin of 1216. Cardiology consulted and he was taken to the [facility] and was found to have heavily calcified arteries however no stenosis greater than 70% nothing was done to pull but there is concern for Takotsubo cardiomyopathy. His echocardiogram 06/17/2022 showed a mildly dilated left ventricle with an EF of 20 to 25% with anterior and apical akinesis and possible LV apical thrombus. There is a small pericardial effusion left atrium was mildly enlarged. Diastolic function indeterminant. He was on aspirin statin and at that time he was started on Lasix, beta-gabrielle, COLIN. He then went into A. fib with RVR and received amiodarone and digoxin and converted and was placed on Eliquis for the A. fib and for the possible LV apical thrombus. He was doing well and was discharged home in stable conditions with the following discharge instructions: *Please take this with you to your next doctors appointment* ?You are found to have an irregular heart beat on admission, atrial fibrillation, you have been started on amiodarone 200 mg daily for this, carvedilol 3.125mg twice daily and a blood thinner Eliquis 5 mg twice daily ?You were found to have a condition called Takotsubo cardiomyopathy (TCM) is a type of heart condition also known as stress-induced cardiomyopathy or broken heart syndrome. It causes sudden chest pain. The symptoms of TCM can be like those of a heart attack ? Because of this you have been started on a water pill, furosemide (Lasix) to milligrams daily as well as lisinopril 2.5 mg twice daily and aspirin and atorvastatin. ? All of your new medications have been sent to your preferred pharmacy on file ? Please stop taking your irbesartan?hydrochlorothiazide, these new medications will take the place of this ? Please follow with cardiology upon discharge, please call the office to schedule hospital follow-up appointment, . -Please call your primary care provider's office upon discharge to schedule a hospital follow up within 1 week. -For any concerning signs or symptoms please call 911 or proceed to the nearest emergency department -Weigh yourself every day. A sudden weight gain can mean you are retaining fluid. Weigh yourself at the same time of day and in the same kind of clothes. Ideally, weigh yourself first thing in the morning after you empty your bladder, but before you eat breakfast. -Please call your physician if your weight goes up by more than 2 pounds in 1 day or 5 pounds in 1 week. This can be a sign that you are retaining more fluid than you should be. Clues to weight gain include checking your ankles for swelling, or noticing you are short of breath when you lie down -Please limit your sodium intake to less than 3 g/day. Here are tips: Limit canned, dried, packaged, and fast foods. Don't add salt to your food at the table. Season foods with herbs instead of salt when you cook. When you eat out, ask that the chef de cuisine not add any salt to your dish. Don't eat fried or greasy foods. Be careful of bottled beverages. They can contain a lot of salt -Call 911 right away if you have: -Severe shortness of breath, such that you can't catch your breath even while resting -Severe chest pain that does not resolve with rest or nitroglycerin -[place], foamy mucus with cough and shortness of breath -An ongoing rapid or irregular heartbeat -Passing out or fainting -Stroke symptoms such as sudden numbness or weakness on one side of your face, arm, or leg or sudden confusion, trouble speaking or vision changes Physical Exam Const alert and oriented x3 HEENT normocephalic and head/scalp atraumatic Eyes EOMs intact bilaterally Neck supple Resp normal respiratory effort Cardio regular rate GI non-distended Extremity Extremity Narrative: Moving all EXTR Skin no rashes or lesions noted Neuro Neuro Narrative: No overt focal neurologic deficits appreciated Psych affect normal Weight / BMI Weight Weight: 97.8 kg Body Mass Index (BMI) 31.8 ABG / Lab / Microbiology Data Result Diagrams: 06/19/22 05:21 06/19/22 05:21 Laboratory: Laboratory Results - last 24 hr 06/19/22 05:21: WBC 8.9, RBC 4.20 L, Hgb 13.0, Hct 38.2 L, MCV 91.0 D, MCH 31.0, MCHC 34.0 D, RDW Std Deviation 44.2 H, RDW Coeff of Brent 13.2, Plt Count 247, MPV 10.2, Immature Gran % (Auto) 0.200, Neut % (Auto) 75.9 H, Lymph % (Auto) 11.1 L, [place] % (Auto) 10.0, Eos % (Auto) 2.4, Baso % (Auto) 0.4, Absolute Neuts (auto) 6.7, Absolute Lymphs (auto) 0.99, Nucleated RBC % 0 06/19/22 05:21: Sodium 134 L, Potassium 3.9, Chloride 101, Carbon Dioxide 26.0, Anion Gap 7, BUN 19 H, Creatinine 0.85, Estim Creat Clear Calc 64.69, Est GFR (MDRD) Af Amer 111, Est GFR (MDRD) Non-Af 92, BUN/Creatinine Ratio 22.4 H, Glucose 96, Calcium 8.1 L D/C Instructions Discharge Diet: - (Limit your sodium to 3 g/day) Meaningful Use Info Meaningful Use Diagnoses (Choose all that apply): CHF CHF COLIN/ARB ordered at discharge?: Yes Documented LVEF (%): 20 Discharge Plan Admission Admit Date/Time: 06/16/22 08:31 Primary Reason for Your Visit: Chest pain Attending Provider: Dana Harvey Primary Care Provider: Joyce Vaca NP Instructions Patient Instructions: AFib Dc, Cardiomyopathy Dc, Takotsubo Cardiomyopathy Additional Instructions / Restrictions: *Please take this with you to your next doctors appointment* ?You are found to have an irregular heart beat on admission, atrial fibrillation, you have been started on amiodarone 200 mg daily for this, carvedilol 3.125mg twice daily and a blood thinner Eliquis 5 mg twice daily ?You were found to have a condition called Takotsubo cardiomyopathy (TCM) is a type of heart condition also known as stress-induced cardiomyopathy or broken heart syndrome. It causes sudden chest pain. The symptoms of TCM can be like those of a heart attack ? Because of this you have been started on a water pill, furosemide (Lasix) to milligrams daily as well as lisinopril 2.5 mg twice daily and aspirin and atorvastatin. ? All of your new medications have been sent to your preferred pharmacy on file ? Please stop taking your irbesartan?hydrochlorothiazide, these new medications will take the place of this ? It is important for you to follow-up with cardiology upon discharge, please call the office upon discharge to schedule hospital follow-up appointment, . -Please call your primary care provider's office upon discharge to schedule a hospital follow up within 1 week. -For any concerning signs or symptoms please call 911 or proceed to the nearest emergency department -Weigh yourself every day. A sudden weight gain can mean you are retaining fluid. Weigh yourself at the same time of day and in the same kind of clothes. Ideally, weigh yourself first thing in the morning after you empty your bladder, but before you eat breakfast. -Please call your physician if your weight goes up by more than 2 pounds in 1 day or 5 pounds in 1 week. This can be a sign that you are retaining more fluid than you should be. Clues to weight gain include checking your ankles for swelling, or noticing you are short of breath when you lie down -Please limit your sodium intake to less than 3 g/day. Here are tips: Limit canned, dried, packaged, and fast foods. Don't add salt to your food at the table. Season foods with herbs instead of salt when you cook. When you eat out, ask that the chef de cuisine not add any salt to your dish. Don't eat fried or greasy foods. Be careful of bottled beverages. They can contain a lot of salt -Call 911 right away if you have: -Severe shortness of breath, such that you can't catch your breath even while resting -Severe chest pain that does not resolve with rest or nitroglycerin -[place], foamy mucus with cough and shortness of breath -An ongoing rapid or irregular heartbeat -Passing out or fainting -Stroke symptoms such as sudden numbness or weakness on one side of your face, arm, or leg or sudden confusion, trouble speaking or vision changes Discharge Orders/Prescriptions Prescriptions: New atorvastatin 80 mg Tablet 80 mg PO QHS 30 Days Qty: 30 0RF amiodarone 200 mg Tablet 200 mg PO DAILY 30 Days Qty: 30 0RF aspirin 81 mg Tablet,Delayed Release (Dr/Ec) 81 mg PO BREAKFAST 30 Days Qty: 30 0RF carvedilol 3.125 mg Tablet 3.125 mg PO BIDCM 30 Days Qty: 60 0RF furosemide 20 mg Tablet 20 mg PO DAILY 30 Days Qty: 30 0RF lisinopril 2.5 mg Tablet 2.5 mg PO BID 30 Days Qty: 60 0RF Eliquis 5 mg Tablet 5 mg PO BID 30 Days Qty: 60 0RF Discontinued saw palmetto 160 mg Capsule 320 mg PO DAILY irbesartan-hydrochlorothiazide 300-12.5 mg tablet 1 tab PO DAILY Referrals / Follow Up: Radha Del Toro MD [Med Staff - Active Staff] - See Referral Note (Please call the cardiology office to schedule a hospital follow-up appointment upon discharge) Joyce Vaca NP, ADULT SPECIALIST-C [Primary Care Provider] - Within 1 Week Disposition Disposition (needs filled in before D/C Order can be placed): Home, Self Care Charges/Coding Visit Charges Inpatient E&M: 75201 Disch Hosp
--- NOTE | 2022-06-19 16:40 | EKG12_ITS ---
Test Reason : Blood Pressure : / mmHG Vent. Rate : 154 BPM Atrial Rate : 000 BPM P-R Int : 000 ms QRS Dur : 092 ms QT Int : 310 ms P-R-T Axes : 000 100 063 degrees QTc Int : 496 ms Atrial fibrillation with rapid ventricular response with premature ventricular or aberrantly conducte d complexes Rightward axis Low voltage QRS Cannot rule out Anterior infarct (cited on or before 16-JUN-2022) Abnormal ECG Confirmed by AUNDREA SOLIS, ANN ([id number]), editor index CATHERINE HOBBS ([id number]) on 06/23/2022 1:18:20 PM Referred By: Wes Confirmed By:ANN GUILLAUME MD
--- NOTE | 2022-06-19 19:27 | NURSING ---
Charting reviewed with Agatha Camacho RN
== END 2022-06-19 19:23 | disposition home or self-care (01) | DRG 287 ==
LOC: ED 07:58 → PCU 09:06
PROVIDERS: Emergency Medicine; Internal Medicine Cardiovascular Disease; Admitting Provider Internal Medicine; Emergency Provider Emergency Medicine; PCP Nurse Practitioner; Visit Provider Internal Medicine
DX: I51.81 Takotsubo syndrome (principal); C77.9 Secondary and unspecified malignant neoplasm of lymph node, unspecified; I50.20 Unspecified systolic (congestive) heart failure; C43.9 Malignant melanoma of skin, unspecified; G70.00 Myasthenia gravis without (acute) exacerbation; I11.0 Hypertensive heart disease with heart failure; I48.91 Unspecified atrial fibrillation; I25.10 Atherosclerotic heart disease of native coronary artery without angina pectoris; I51.3 Intracardiac thrombosis, not elsewhere classified; Z79.01 Long term (current) use of anticoagulants; Z79.899 Other long term (current) drug therapy; Z87.891 Personal history of nicotine dependence
CPT/HCPCS: 36415; 71045; 71275; 80048; 80053; 80061; 80076; 80162; 83036; 83690; 83735; 84132; 84443; 84484; 85025; 85027; 85379; 85610; 85730; 93005; 93306; 93458; 97161; 99152; 99153; 99285; Q9957; Q9967; A4216; C1769; C1894; C8929; J1940

== ENCOUNTER → 2022-06-25 | Outpatient (CLI) | payer MEDICARE, OTHER, SELFPAY ==
[2022-06-25 12:17] LABS: ALB/GLOB Ratio 0.7 RATIO (0.9-2.4); AST(SGOT) 19 U/L (15-37); Alanine Aminotransfer ALT/SGPT 20 U/L (16-61); Albumin, Serum 2.8 g/dL (3.2-5.0); Alkaline Phosphatase 63 U/L (45-117); Anion Gap 4 (5-15); BUN 11 mg/dL (7-18); BUN/Creat Ratio 12.7 RATIO (10-20); Calcium,Total 8.9 mg/dL (8.5-10.1); Chloride 99 mmol/L (98-107); Creatinine, Serum 0.87 mg/dL (0.70-1.30); EST Glomerular Filtration Rate 89 mL/min (>60); Est Glom Filt Rate - Afr Amer 108 mL/min (>60); Globulin 3.8 g/dL (2.2-4.2); Glucose 106 mg/dL (74-106); Potassium 4.7 mmol/L (3.5-5.1); Protein, Total 6.6 g/dL (6.4-8.2); Sodium Level 134 mmol/L (136-145)
== END | disposition home or self-care (01) ==
LOC: LAB 11:26
PROVIDERS: PCP Nurse Practitioner; Visit Provider Internal Medicine Cardiovascular Disease
DX: I42.9 Cardiomyopathy, unspecified (principal)
CPT/HCPCS: 36415; 80053

== ENCOUNTER → 2022-07-02 | Outpatient (CLI) | payer MEDICARE, OTHER, SELFPAY | END | disposition home or self-care (01) | PROVIDERS: PCP Nurse Practitioner; Visit Provider Nurse Practitioner | DX: R35.0 Frequency of micturition (principal); R31.29 Other microscopic hematuria | CPT/HCPCS: 87086 ==

== ENCOUNTER 2022-07-03 02:22 | Inpatient (IN) | payer MEDICARE, OTHER, SELFPAY ==
[2022-07-03] VITALS (25 sets, daily range): BP systolic 103–158; BP diastolic 57–98; PULSE 30–133; RESP 12–122; TEMP 36.3–36.9; O2SAT 82–99; BMI 34.6; BMI 31.3
--- NOTE | 2022-07-03 02:38 | EDS_ITS ---
HPI History of Present Illness Chief Complaint: Shortness of Breath Informant: patient Onset/Context/Timing Onset: Today Context: gradual Timing: Continuous Current Severity: Moderate Maximum Severity: Moderate Worsened by: Nothing Relieved by: Nothing Associated Symptoms cough Chest Pain: Positive for None Narrative Narrative: 86-year-old male states he was diagnosed with his primary care physician today with pneumonia. I believe he was started on Augmentin. Tonight he became short of breath and had accelerated heart rate. Really denies any chest pain. No hemoptysis. He has a very extensive past medical history of HI, cardiomyopathy, A. fib, CAD. He is on the blood thinner Eliquis. He is not on any home O2. PE Risk Factors: Negative for OCP + Smoking + > 35, Prior DVT or PE, Recent immobilization, Recent surgery or Recent travel Prior similar symptoms: Yes Recent Illness/Hospitalization: No PFSH PFS Medical History Acute non-ST elevation myocardial infarction (NSTEMI) Atrial fibrillation Bone spur of left foot Broken heart syndrome Cancer Cardiomyopathy Coronary artery disease Encounter for education Essential hypertension Former smoker Hard of hearing History of edema Hypertension Leg cramps 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 Myasthenia gravis Recurrent UTI Restless legs Takotsubo cardiomyopathy Wears dentures Wears glasses Wears hearing aid Home Medications apixaban 5 mg tablet (Eliquis) 5 mg PO BID 30 days #60 tabs 06/19/22 [Rx Last Taken Unknown] aspirin 81 mg tablet,delayed release 81 mg PO BREAKFAST 30 days #30 tabs 06/19/22 [Rx Last Taken Unknown] carvedilol 3.125 mg tablet 3.125 mg PO BIDCM 30 days #60 tabs 06/19/22 [Rx Last Taken Unknown] furosemide 20 mg tablet 20 mg PO DAILY 30 days #30 tabs 06/19/22 [Rx Last Taken Unknown] amiodarone 200 mg tablet 100 mg PO DAILY 30 days #15 tabs 06/25/22 [Rx Last Taken Unknown] atorvastatin 80 mg tablet 40 mg PO QHS 30 days #30 tabs 06/25/22 [Rx Last Taken Unknown] losartan 25 mg tablet 25 mg PO DAILY #30 tabs 07/01/22 [Rx Last Taken Unknown] amoxicillin 875 mg-potassium clavulanate 125 mg tablet 1 tab PO BID #28 tabs 07/02/22 [Rx Last Taken Unknown] tamsulosin 0.4 mg capsule 0.4 mg PO DAILY #90 caps 07/02/22 [Rx Last Taken Unknown] Allergy/AdvReac Type Severity Reaction Status Date / Time pembrolizumab [From Keytruda] AdvReac Severe Myasthenia Verified 06/25/22 10:26 gravis lisinopril AdvReac Intermediate Dry Verified 07/01/22 17:25 persistent cough Family History Mother Colon cancer Brother Cancer prostate Father Heart disease Surgical History History of cataract extraction History of excision of mass Social History Smoking Status: Former smoker Tobacco: How many years used: 32 Electronic Cigarette Use: not used second hand exposure: No alcohol intake: current alcohol intake frequency: 0-2 drinks per day details: socially substance use type: does not use caffeine: Yes Type: coffee Number of servings: 2 destini/sabianism: Quaker seatbelt use: always do you feel safe at home: Yes ROS ROS ED ROS Narrative Cough, shortness of breath and accelerated heart rate. Review of Systems ROS Unobtainable: Denies due to encephalopathy Constitutional Constitutional ED: Denies chills or fever(s) Eyes Eyes: Denies blurry vision ENT ENT ED: Denies ear pain Cardiovascular Cardiovascular: Reports palpitations and racing heartbeat; Denies chest pain Respiratory/Chest Respiratory/Chest: Reports cough and dyspnea Gastrointestinal Gastrointestinal: Denies abdominal pain Genitourinary Genitourinary ED: Denies dysuria Musculoskeletal Musculoskeletal: Denies arthralgias Integumentary Denies abscess Neurologic Neurologic: Denies headache(s) Psychiatric Psychiatric: Denies anxiety Endocrine Endocrinology: Denies cold intolerance Hematologic/Lymphatic Hematologic/Lymphatic: Denies easy bleeding Allergic/Immunologic Allergic/Immunologic ED: Denies mouth swelling or tongue swelling EXAM Physical Exam Narrative Exam Narrative: 86-year-old male initial blood pressure 158/89 heart rate 122 appears to be A. fib RVR and his O2 sats 82% he is hypoxic without oxygen. H EENT exam unremarkable. Neck nontender no JVD. No lymphadenopathy. Lungs clear to auscultation bilaterally. Heart tachycardic rate of 130s appears to be A. fib RVR. Abdomen soft nontender. Moving all 4 extremities. Nontender. He does have 1+ edema both lower extremities. Calves are nontender. Neurologically is awake and alert. Hard of hearing but answers questions and follows commands. Const Vital Signs: 07/03/22 02:23 07/03/22 02:28 07/03/22 02:28 Temperature 97.4 F L 97.6 F L Temperature Source Temporal Temporal Pulse Rate 30 L 133 H Respiratory Rate 122 H 28 H Respiratory Effort Respiratory Depth Blood Pressure 158/89 H 127/93 H Blood Pressure Mean 112 104 Pulse Ox 82 95 95 Oxygen Delivery Method Nasal Cannula Nasal Cannula Nasal Cannula Oxygen Flow Rate (L/min) 6 6 07/03/22 02:28 07/03/22 02:56 Temperature Temperature Source Pulse Rate Respiratory Rate Respiratory Effort Short of Breath Respiratory Depth Shallow Blood Pressure Blood Pressure Mean Pulse Ox Oxygen Delivery Method Room Air Nasal Cannula Oxygen Flow Rate (L/min) 4 Positive well nourished, well developed and obese; Negative for cachectic, contractures or unkempt General Appearance ED: well developed; Negative for unkempt, cachectic, contractures, NAD or pallor Nutritional Appearance: obese; Negative for cachectic HEENT Reports moist mucous membranes; Denies dry mucous membranes atraumatic; Negative for trauma or tenderness Mouth ED: No dry mucous membranes Mouth: No dry mucous membranes Eyes PERRL and EOMs intact bilaterally General Eye ED: Negative for pale conjunctiva or scleral icterus Neck no lymphadenopathy, supple, no meningeal signs and no JVD General: Negative for tenderness Lymph Lymphatic: Negative for other Resp normal respiratory effort and clear to auscultation bilaterally Effort and Inspection: Negative for pain with movement Auscultation: Negative for rales, rhonchi or wheezes Cardio no murmurs; Negative for regular rate or regular rhythm Rate: tachycardic GI non-tender, non-distended and no masses Inspection: Negative for other Auscultation: normoactive bowel sounds Palpation: soft; Negative for tender Back/Spine no CVA tenderness and normal to inspection General Back: Negative for CVA tenderness or tenderness Extremity normal to inspection General Extremety ED: Yes edema; Negative for tenderness General Extremity: edema Neuro oriented x3 Sensorium / Orientation: alert, oriented to person and oriented to place Motor Exam: strength 5/5 throughout Psych mental status grossly normal Appearance: Negative for unkempt Attitude: No agitated and No other Mood & Affect: Negative for depressed Thought Process: normal thought process Skin no wounds and skin turgor normal General Skin Exam: Negative for jaundice or pallor Lesions: no lesions Rashes: no rashes Trauma: Negative for abrasion or laceration MDM MDM MDM Narrative Medical decision making narrative: 86-year-old A. fib RVR with hypoxia and reported recently diagnosed with pneumonia. Ongoing cardiac work-up. Be treated with IV Cardizem. Less likely will need admitted. Repeat exam at 3:18 AM patient's doing better currently. He is resting comfortably. His heart rates in the 80s after a single IV dose of Cardizem. Several labs still pending. Patient will be admitted due to A. fib RVR, elevated troponin which most likely is chronic, hypoxia and left lower lobe pneumonia. I will speak to the hospitalist about admission. Patient be started on Rocephin and Zithromax for the pneumonia. Lab Data Attestation: I reviewed the patient's lab results. Lab results narrative: CBC shows no elevated white count of 14.5. H&H 14.6 and 44. Platelets 549. Chemistries show sodium 124 potassium of 5.7. Gap of 3. BUN of 20 creatinine 0.84. Glucose 149. Troponin elevated at 397. Labs: Laboratory Results - last 24 hr 07/03/22 07/03/22 07/03/22 02:46 02:46 03:12 WBC 14.5 H RBC 4.96 Hgb 14.6 Hct 44.8 MCV 90.3 MCH 29.4 MCHC 32.6 RDW Std Deviation 42.2 RDW Coeff of Brent 12.9 Plt Count 549 H MPV 8.3 Immature Gran % (Auto) 0.600 Neut % (Auto) 87.9 H Lymph % (Auto) 3.0 L [place] % (Auto) 8.2 Eos % (Auto) 0.1 Baso % (Auto) 0.2 Absolute Neuts (auto) 12.7 H Absolute Lymphs (auto) 0.43 L Nucleated RBC % 0 Differential Comment SCANNED Sodium Cancelled 124 L Potassium Cancelled 5.7 H Chloride Cancelled 88 L Carbon Dioxide Cancelled 33.0 H Anion Gap Cancelled 3 L BUN Cancelled 20 H Creatinine Cancelled 0.84 Estim Creat Clear Calc Cancelled 65.46 Est GFR (MDRD) Af Amer Cancelled 112 Est GFR (MDRD) Non-Af Cancelled 92 BUN/Creatinine Ratio Cancelled 23.8 H Glucose Cancelled 149 H Calcium Cancelled 8.1 L Troponin I High Sens Cancelled 397 H* Radiography Chest X-Ray - ED: 1 View, Read by ED Physician, Heart, Lungs, Mediastinum, Bony Structures and Chronic Changes Diagnostic Testing: Clinical Impression(s) from Imaging Studies Chest X-Ray 07/03/22 03:05 IMPRESSION: Left lower lobe pneumonia and small pleural effusion. Electronically Signed: Alexa Goodson MD at 3:30 EST Reading Location ID and State: [facility] / [place] , Service support , Chest x-ray, portable, single view shows obscuring of the left hemidiaphragm which may be from an effusion or infiltrate cannot be ruled out. Atelectasis right base. Interpreted by myself. Radiologist is interpreted as left lower lobe pneumonia with effusion. Rhythm Strip Rhythm Strip: A-fib Rate: 135 Ectopy: None EKG Initial EKG: Attestation: I personally reviewed and interpreted this EKG as follows: Interpretation: Atrial Fibrillation Comments: A. fib with rapid ventricular rate of about 135. Right bundle branch block. No acute signs of HI. ST depression in V4, 5 and V6. Discharge Plan Dx/Rx/DC Orders Clinical Impression: Atrial fibrillation with rapid ventricular response, Hypoxia, Chronic anticoagulation, Pneumonia, Elevated troponin, Acute hyponatremia Disposition Disposition: Acute Care Hospital [facility]
[2022-07-03] MEDS: dilTIAZem 25 MG/5 ML Vial IV BOLUS (02:50)
[2022-07-03 02:51] LABS: Absolute Lymphocyte Count 0.43 X10^3/uL (0.83-4.51); Absolute Neutrophil Count 12.7 X10^3/uL (2.0-7.7); Basophil# 0.03 X10^3/uL; Basophil% 0.2 % (0-1); Eosinophil# 0.01 X10^3/uL; Eosinophils% 0.1 % (0-5); Hematocrit 44.8 % (40-54); Hemoglobin 14.6 g/dL (13.0-16.5); Lymphocyte # 0.43 X10^3/ul (0.83-4.51); Mean Corp Hgb Conc 32.6 g/dL (32-36); Mean Corpuscular Hgb 29.4 pg (27.0-32.0); Mean Corpuscular Volume 90.3 fL (80-94); Mean Platelet Vol. 8.3 fl (6.2-12.0); Monocyte# 1.18 X10^3/uL; Monocyte% 8.2 % (0-10); NRBC Flagged by Analyzer 0 % (0-5); Neutrophil # 12.71 X10^3/uL (2.7-7.7); Neutrophil % 87.9 % (47-70); POSITIVE DIFFERENTIAL YES; Platelet Count 549 K/mm3 (150-450); RBC Distribution Width CV 12.9 % (11.6-14.6); RBC Distribution Width SD 42.2 fl (35.1-43.9); Red Blood Count 4.96 M/mm3 (4.6-6.2); White Blood Count 14.5 K/mm3 (4.4-11.0)
[2022-07-03 02:54] LABS: Differential Indicated SCAN CRITERIA MET
--- NOTE | 2022-07-03 03:05 | RAD_ITS ---
STUDY: X-RAY CHEST REASON FOR EXAM: Male, 86 years old patient with chest pain. TECHNIQUE: Single AP portable view of the chest. COMPARISON: 06/16/2022. FINDINGS: Right-sided Mediport catheter is present with the tip of the catheter at the cavoatrial junction. Cardiac monitoring leads are present. The lungs are hyperexpanded. There is left basilar airspace consolidation atelectasis suggesting possible pneumonia. This is new since the previous study. There is a small left-sided pleural effusion. There is mild cardiac enlargement. Normal mediastinum and mila. Normal visualized pulmonary arteries. There is atherosclerotic calcification of the aortic arch with tortuosity. There are diffuse degenerative changes of the visualized thoracic spine. There are degenerative changes of both shoulders. There is no demonstrated abnormality of the visualized soft tissue structures of the upper abdomen. RAD/Chest 1 View (Portable) IMPRESSION: Left lower lobe pneumonia and small pleural effusion. Electronically Signed: Alexa Goodson MD at 3:30 EST ,
[2022-07-03 03:35] LABS: Differential Comment SCANNED
[2022-07-03 03:46] LABS: Anion Gap 3 (5-15); BUN 20 mg/dL (7-18); BUN/Creat Ratio 23.8 RATIO (10-20); Calcium,Total 8.1 mg/dL (8.5-10.1); Chloride 88 mmol/L (98-107); Creatinine, Serum 0.84 mg/dL (0.70-1.30); EST Glomerular Filtration Rate 92 mL/min (>60); Est Glom Filt Rate - Afr Amer 112 mL/min (>60); Estimated Creatinine Clearance 65.46 ml/min; Glucose 149 mg/dL (74-106); Potassium 5.7 mmol/L (3.5-5.1); Sodium Level 124 mmol/L (136-145); Troponin-I HS (w/2H Reflex) 397 pg/mL (3.0-78.0)
--- NOTE | 2022-07-03 04:01 | HP.PCM.HOS_ITS ---
HPI - General General Date of Admission: 07/03/22 HPI Narrative MARYAN OLIVA, is a 86 M who presents to the hospital with worsening shortness of breath. He presented to his PCP today who was treating him for a UTI and constipation. His UTI treatment was based on a UA that I cannot see and his difficulty with urination. He presented to the hospital because of increased breath and requiring 4 L nasal cannula on admission secondary to hypoxia. He was found to be in A. fib with RVR and this was treated with a single dose of Cardizem which did bring him out of RVR. He was recently hospitalized for non- STEMI which is consistent with the elevated troponin that he demonstrated here t [place] though is significantly lower than what it was a week ago. He is feeling better now that he is on oxygen denies any chest pain. He is only taken 1 day of the Augmentin for UTI however chest x-ray here demonstrates left pleural effusion with likely pneumonia [facility] Medical History Acute non-ST elevation myocardial infarction (NSTEMI) Atrial fibrillation Bone spur of left foot Broken heart syndrome Cancer Cardiomyopathy Coronary artery disease Encounter for education Essential hypertension Former smoker Hard of hearing History of edema Hypertension Leg cramps 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 Myasthenia gravis Recurrent UTI Restless legs Takotsubo cardiomyopathy Wears dentures Wears glasses Wears hearing aid Home Medications apixaban 5 mg tablet (Eliquis) 5 mg PO BID 30 days #60 tabs 06/19/22 [Rx Last Taken Unknown] aspirin 81 mg tablet,delayed release 81 mg PO BREAKFAST 30 days #30 tabs 06/19/22 [Rx Last Taken Unknown] carvedilol 3.125 mg tablet 3.125 mg PO BIDCM 30 days #60 tabs 06/19/22 [Rx Last Taken Unknown] furosemide 20 mg tablet 20 mg PO DAILY 30 days #30 tabs 06/19/22 [Rx Last Taken Unknown] amiodarone 200 mg tablet 100 mg PO DAILY 30 days #15 tabs 06/25/22 [Rx Last Taken Unknown] atorvastatin 80 mg tablet 40 mg PO QHS 30 days #30 tabs 06/25/22 [Rx Last Taken Unknown] losartan 25 mg tablet 25 mg PO DAILY #30 tabs 07/01/22 [Rx Last Taken Unknown] amoxicillin 875 mg-potassium clavulanate 125 mg tablet 1 tab PO BID #28 tabs 07/02/22 [Rx Last Taken Unknown] tamsulosin 0.4 mg capsule 0.4 mg PO DAILY #90 caps 07/02/22 [Rx Last Taken Unknown] Allergy/AdvReac Type Severity Reaction Status Date / Time pembrolizumab [From Keytruda] AdvReac Severe Myasthenia Verified 06/25/22 10:26 gravis lisinopril AdvReac Intermediate Dry Verified 07/01/22 17:25 persistent cough Family History Mother Colon cancer Brother Cancer prostate Father Heart disease Surgical History History of cataract extraction History of excision of mass Social History Smoking Status: Former smoker Tobacco: How many years used: 32 Electronic Cigarette Use: not used second hand exposure: No alcohol intake: current alcohol intake frequency: 0-2 drinks per day details: socially substance use type: does not use caffeine: Yes Type: coffee Number of servings: 2 destini/jainism: Restorationist seatbelt use: always do you feel safe at home: Yes ROS Constitutional Constitutional: Denies chills, fatigue, fever(s) or malaise Eyes Eyes: Denies blurry vision ENT HEENT: Denies headache(s) or nasal discharge Cardiovascular Cardiovascular: Denies chest pain, dyspnea on exertion or syncope Respiratory/Chest Respiratory/Chest: Reports shortness of breath at rest and shortness of breath with exertion; Denies cough Gastrointestinal Gastrointestinal: Denies constipation, diarrhea, nausea or vomiting Genitourinary Genitourinary: Denies dysuria Neurologic Neurologic: Denies focal weakness, numbness or tremor(s) Psychiatric Psychiatric: Denies anxiety or depression Vital Signs Vital Signs Vital Signs: 07/03/22 02:23 07/03/22 02:28 07/03/22 02:28 Temperature 97.4 F L 97.6 F L Temperature Source Temporal Temporal Pulse Rate 30 L 133 H Respiratory Rate 122 H 28 H Respiratory Effort Respiratory Depth Blood Pressure 158/89 H 127/93 H Blood Pressure Mean 112 104 Pulse Ox 82 95 95 Oxygen Delivery Method Nasal Cannula Nasal Cannula Nasal Cannula Oxygen Flow Rate (L/min) 6 6 07/03/22 02:28 07/03/22 02:56 07/03/22 03:55 Temperature Temperature Source Pulse Rate 104 H Respiratory Rate 26 H Respiratory Effort Short of Breath Respiratory Depth Shallow Blood Pressure 116/65 Blood Pressure Mean 82 Pulse Ox 98 Oxygen Delivery Method Room Air Nasal Cannula Nasal Cannula Oxygen Flow Rate (L/min) 4 4 07/03/22 03:55 Temperature 97.6 F L Temperature Source Temporal Pulse Rate 108 H Respiratory Rate 30 H Respiratory Effort Respiratory Depth Blood Pressure 116/65 Blood Pressure Mean 82 Pulse Ox 97 Oxygen Delivery Method Nasal Cannula Oxygen Flow Rate (L/min) 4 Weight Weight: 234 lb 5.622 oz Body Mass Index (BMI) 34.6 Physical Exam Narrative General: Alert, Oriented x3, Cooperative, No apparent distress HEENT: Atraumatic, PERRLA, EOMI, Normocephalic, hard of hearing Oral: Moist Mucosa Neck: Supple, No JVD Lungs: Diminished at left base, Normal air movement, No rhonchi, No wheeze, No r ales Cardiovascular: Irregular rate and rhythm, Normal S1, Normal S2, No murmurs Abdomen: Soft, Non Tender, Non-Distended, No Hepato-splenomegaly Extremities: No pitting edema, Capillary Refill Less than 3 Seconds Skin: No rashes, No breakdown Musculoskeletal: No Tenderness to Palpation of Joints or Extremities Neurological: Cranial nerves II-XII grossly intact, Motor Exam 5/5 strength throughout, Sensory exam intact to light touch and pain Psych/Mental Status: Flat affect, Appropriate Results Lab / Micro Data Result Diagrams: 07/03/22 02:46 07/03/22 03:12 Labs: Laboratory Results - last 24 hr 07/03/22 02:46: WBC 14.5 H, RBC 4.96, Hgb 14.6, Hct 44.8, MCV 90.3, MCH 29.4, MCHC 32.6, RDW Std Deviation 42.2, RDW Coeff of Brent 12.9, Plt Count 549 H, MPV 8.3, Immature Gran % (Auto) 0.600, Neut % (Auto) 87.9 H, Lymph % (Auto) 3.0 L, [place] % (Auto) 8.2, Eos % (Auto) 0.1, Baso % (Auto) 0.2, Absolute Neuts (auto) 12.7 H, Absolute Lymphs (auto) 0.43 L, Nucleated RBC % 0, Differential Comment SCANNED 07/03/22 02:46: Sodium Cancelled, Potassium Cancelled, Chloride Cancelled, Carbon Dioxide Cancelled, Anion Gap Cancelled, BUN Cancelled, Creatinine Cancelled, Estim Creat Clear Calc Cancelled, Est GFR (MDRD) Af Amer Cancelled, Est GFR (MDRD) Non-Af Cancelled, BUN/Creatinine Ratio Cancelled, Glucose Cancelled, Calcium Cancelled, Troponin I High Sens Cancelled 07/03/22 03:12: Sodium 124 L, Potassium 5.7 H, Chloride 88 L, Carbon Dioxide 33.0 H, Anion Gap 3 L, BUN 20 H, Creatinine 0.84, Estim Creat Clear Calc 65.46, Est GFR (MDRD) Af Amer 112, Est GFR (MDRD) Non-Af 92, BUN/Creatinine Ratio 23.8 H, Glucose 149 H, Calcium 8.1 L, Troponin I High Sens 397 H* Rhythm Strip Rhythm Strip: A-fib Rate: 135 Ectopy: None Radiology Impression Chest X-Ray 07/03/22 03:05 IMPRESSION: Left lower lobe pneumonia and small pleural effusion. Electronically Signed: Alexa Goodson MD at 3:30 EST Reading Location ID and State: [address] [place] [address] , Service support , Assessment & Plan Assessment/Plan (1) Atrial fibrillation with rapid ventricular response: (2) Acute respiratory failure with hypoxia: (3) Pneumonia: PLAN: Plan 1. Acute hypoxic respiratory failure and sepsis secondary to left lower lobe pneumonia ? He was given Augmentin yesterday for possible UTI he had also presented to the office with shortness of breath, this does not appear to have been addressed. Urine culture is pending however chest x-ray on admission demonstrates left lower lobe pneumonia and a white count of 14 ? Continue with Rocephin and azithromycin, this should cover both his lungs and his urine ? He is tachypneic with a leukocytosis with unknown source therefore he meets sepsis criteria ? He was hypoxic to 82% started on nasal cannula he does not wear any oxygen at home 2. A. fib with RVR/HTN/HLD/chronic systolic CHF ? Currently in A. fib, he came out of RVR with a bolus of Cardizem ? Can resume his home Coreg as well as his amiodarone though will wait to have these medications verified before making any adjustments ? Continue with his Lasix, losartan, Eliquis ? He did have a heart cath on 06/16/2022 that showed a reduced EF consistent with Takotsubo's cardiomyopathy with mild to moderate narrowing of his coronary arteries at that time medical therapy was recommended DVT: Eliricardo Charges/Coding Visit Charges Inpatient E&M: 92443 Init Hosp L3
[2022-07-03] MEDS: Ceftriaxone 1 GM/50 ML BAG IV (04:35)
[2022-07-03 05:14] LABS: Reflex Troponin-HS? (from REC) Y
--- NOTE | 2022-07-03 08:10 | NURSING ---
respiratory called for bipap for O2 sats dropping to 80% on 5L NC while asleep.
[2022-07-03] MEDS: Carvedilol 3.125 MG TABLET PO ×2 (08:23→16:14)
[2022-07-03] MEDS: APIXABAN 5 MG TABLET PO ×2 (08:23→22:01)
[2022-07-03] MEDS: Furosemide 20 MG Tablet PO (08:23)
[2022-07-03] MEDS: Amiodarone 200 MG Tablet 100 MG PO (08:23)
[2022-07-03] MEDS: Aspirin E.C. 81 MG Tablet PO (08:23)
[2022-07-03] MEDS: Losartan Potassium 25 MG Tablet PO (08:23)
[2022-07-03] MEDS: Docusate Sodium 100 MG Capsule PO ×2 (08:23→22:01)
[2022-07-03] MEDS: Tamsulosin HCl 0.4 MG Capsule PO (08:24)
[2022-07-03 08:33] LABS: Anion Gap 7 (5-15); BUN 22 mg/dL (7-18); Calcium,Total 8.4 mg/dL (8.5-10.1); Chloride 88 mmol/L (98-107); Creatinine, Serum 0.79 mg/dL (0.70-1.30); EST Glomerular Filtration Rate 100 mL/min (>60); Est Glom Filt Rate - Afr Amer 121 mL/min (>60); Estimated Creatinine Clearance 54.99 ml/min; Glucose 156 mg/dL (74-106); Magnesium 2.2 mg/dL (1.6-2.6); Potassium 5.7 mmol/L (3.5-5.1); Sodium Level 124 mmol/L (136-145)
--- NOTE | 2022-07-03 09:58 | PCM.HOSP.N ---
Hospitalist Note Continues to be short of breath, will place on BiPAP to help work of breathing. Continue Rocephin and azithromycin. Additionally elevated potassium on BMP, Lasix, Kayexalate, albuterol treatment. Hold losartan. Will recheck BMP, repeat troponin had been drawn but was canceled. We will also repeat the troponin though suspect type II. PT/OT also consulted to assist with discharge planning
[2022-07-03] MEDS: Sodium Polystyrene Sulfonate 15 GM/60 ML UDC PO (10:42)
[2022-07-03] MEDS: Albuterol 2.5 MG/3 ML VIAL.NEB. INHALATION (11:08)
[2022-07-03 12:53] LABS: Anion Gap 3 (5-15); BUN 21 mg/dL (7-18); BUN/Creat Ratio 28.1 RATIO (10-20); Calcium,Total 8.6 mg/dL (8.5-10.1); Chloride 89 mmol/L (98-107); Creatinine, Serum 0.75 mg/dL (0.70-1.30); EST Glomerular Filtration Rate 106 mL/min (>60); Est Glom Filt Rate - Afr Amer 128 mL/min (>60); Estimated Creatinine Clearance 54.99 ml/min; Glucose 134 mg/dL (74-106); Potassium 5.5 mmol/L (3.5-5.1); Sodium Level 125 mmol/L (136-145); Troponin-I HS 227 pg/mL (3.0-78.0)
--- NOTE | 2022-07-03 15:55 | CASEMGMT ---
DAKOTAH MCCANN NOTE: Prior admission: Admitted 06/16/22 for NSTEMI and discharged home 07/03/22. Pt declined need for HHC. Pt discharged home on Eliquis. Current admission: Admitted 07/03/22 w/PNA and A-fib w/RVR. DAKOTAH MCCANN to room to talk w/pt. Introduced self and role. Pt very VIEJAS, but able to understand RN SIOBHAN and answered questions appropriately. Pt lives w/his and states he is independent @ home. When DAKOTAH MCCANN inquired about his medications, he states his and step-dtr help to manage his medications and asked RN SIOBHAN to call them w/any questions. He states as far as he knows he has been taking all of his medications as prescribed and that he did f/u w/PCP this week. DAKOTAH MCCANN did inquire of pt if he has home O2 and he states he does not. Reviewed list of local DME companies, in the event he qualifies for home O2 @ discharge and made aware [employer] is affiliated w/[facility]. He chooses [employer]. He states he does have a pulse ox @ home. Discussed any home-going needs. He denies need for HHC and denies having any discharge planning needs or concerns. Call placed to pt's per pt's request. She states [facility] does most of the med mgmt and asked DAKOTAH MCCANN to contact her. Call placed to [facility]. She states he sometimes gets confused about what he is supposed to be taking, so she does go to pt's home weekly and sets up his medications. She states he has been taking his medications as prescribed and she has no questions or concerns at this time about the medications. She confirms pt did go to PCP this week and that he does have a pulse ox. Discussed home O2 set-up, should he qualify for home O2 and she and were both agreeable to [employer] as well. She states pt is independent and still drives. He uses a cane on occasion. She states she does not feel pt would need HHC at this time either. DAKOTAH MCCANN did inform [facility] of CCN and she declines at this time, stating she feels she does not need assistance w/managing pt's medications at this time. Dennis ALONZO RN, CM
[2022-07-03] MEDS: Ensure Plus High Protein 120 ML LIQUID PO (16:15)
[2022-07-03 16:56] LABS: Absolute Neutrophil Count 9.8 X10^3/uL (2.0-7.7); Basophil# 0.02 X10^3/uL; Basophil% 0.2 % (0-1); Eosinophil# 0.04 X10^3/uL; Eosinophils% 0.3 % (0-5); Hematocrit 38.1 % (40-54); Hemoglobin 12.7 g/dL (13.0-16.5); Lymphocyte % 5.1 % (19-41); Mean Corp Hgb Conc 33.3 g/dL (32-36); Mean Corpuscular Hgb 29.7 pg (27.0-32.0); Mean Platelet Vol. 8.5 fl (6.2-12.0); Monocyte% 10.2 % (0-10); NRBC Flagged by Analyzer 0 % (0-5); Neutrophil # 9.82 X10^3/uL (2.7-7.7); Neutrophil % 83.6 % (47-70); POSITIVE DIFFERENTIAL YES; Platelet Count 454 K/mm3 (150-450); Red Blood Count 4.28 M/mm3 (4.6-6.2); White Blood Count 11.8 K/mm3 (4.4-11.0)
[2022-07-03 17:02] LABS: Anion Gap 4 (5-15); BUN 23 mg/dL (7-18); BUN/Creat Ratio 30.2 RATIO (10-20); Calcium,Total 8.3 mg/dL (8.5-10.1); Chloride 88 mmol/L (98-107); Creatinine, Serum 0.76 mg/dL (0.70-1.30); EST Glomerular Filtration Rate 104 mL/min (>60); Est Glom Filt Rate - Afr Amer 125 mL/min (>60); Estimated Creatinine Clearance 54.99 ml/min; Glucose 123 mg/dL (74-106); Potassium 5.3 mmol/L (3.5-5.1); Sodium Level 125 mmol/L (136-145)
[2022-07-03 17:04] LABS: Differential Indicated SCAN CRITERIA MET
[2022-07-03 17:05] LABS: Blood Gas Specimen Type VEN; VBG BASE EXCESS 4 mmol/L (-1.0-3.5); VBG Bicarbonate 30 mmol/L (22-26); VBG PO2 102 mmHg (25-40); VBG SO2 97 % (50-70); VBG TCO2 32 mmol/L (23-33); VBG pCO2 55.9 mmHg (41-51); VBG pH 7.34 (7.32-7.42)
[2022-07-03 17:40] LABS: Anisocytosis RARE; Platelet Estimate SLT INC (ADEQ); Red Cell Morphology N CHROM NORMAL (NORM C&C)
[2022-07-03 19:42] LABS: Osmolality, Serum 267 mOsm/KG (280-301)
[2022-07-03] MEDS: Polyethylene Glycol 3350 17 GM PACKET PO (22:01)
[2022-07-03] MEDS: Atorvastatin Calcium 40 MG Tablet PO (22:01)
[2022-07-04] VITALS (24 sets, daily range): BP systolic 104–176; BP diastolic 60–78; PULSE 91–134; RESP 12–28; TEMP 36.1–36.6; O2SAT 91–100
[2022-07-04] MEDS: Metoprolol Tartrate 5 MG/5 ML Vial IV ×2 (04:22→08:41)
[2022-07-04 07:13] LABS: Absolute Lymphocyte Count 0.67 X10^3/uL (0.83-4.51); Absolute Neutrophil Count 8.7 X10^3/uL (2.0-7.7); Basophil# 0.02 X10^3/uL; Basophil% 0.2 % (0-1); Eosinophil# 0.05 X10^3/uL; Eosinophils% 0.5 % (0-5); Hematocrit 39.6 % (40-54); Hemoglobin 13.3 g/dL (13.0-16.5); Lymphocyte # 0.67 X10^3/ul (0.83-4.51); Lymphocyte % 6.2 % (19-41); Mean Corp Hgb Conc 33.6 g/dL (32-36); Mean Corpuscular Hgb 30.5 pg (27.0-32.0); Mean Corpuscular Volume 90.8 fL (80-94); Mean Platelet Vol. 8.5 fl (6.2-12.0); Monocyte# 1.38 X10^3/uL; Monocyte% 12.7 % (0-10); NRBC Flagged by Analyzer 0 % (0-5); Neutrophil # 8.67 X10^3/uL (2.7-7.7); Neutrophil % 79.9 % (47-70); Platelet Count 477 K/mm3 (150-450); RBC Distribution Width CV 12.9 % (11.6-14.6); RBC Distribution Width SD 42.4 fl (35.1-43.9); Red Blood Count 4.36 M/mm3 (4.6-6.2); White Blood Count 10.8 K/mm3 (4.4-11.0)
[2022-07-04 07:57] LABS: Anion Gap 3 (5-15); BUN 28 mg/dL (7-18); BUN/Creat Ratio 38.4 RATIO (10-20); Calcium,Total 8.7 mg/dL (8.5-10.1); Chloride 89 mmol/L (98-107); Creatinine, Serum 0.73 mg/dL (0.70-1.30); EST Glomerular Filtration Rate 109 mL/min (>60); Est Glom Filt Rate - Afr Amer 132 mL/min (>60); Estimated Creatinine Clearance 54.99 ml/min; Glucose 109 mg/dL (74-106); Potassium 5.6 mmol/L (3.5-5.1); Sodium Level 125 mmol/L (136-145)
[2022-07-04] MEDS: Ensure Plus High Protein 120 ML LIQUID PO (08:40)
[2022-07-04] MEDS: 0.9% Saline Lock 10 ML Syringe IV ×4 (08:41→18:13)
[2022-07-04] MEDS: Aspirin E.C. 81 MG Tablet PO (08:43)
[2022-07-04] MEDS: Carvedilol 6.25 MG Tablet PO ×2 (08:45→20:47)
--- NOTE | 2022-07-04 10:35 | PCM.PN.HOSP ---
Subjective Subjective Reports he is feeling better and wants to go home. Was having difficulty urinating and had to have Vang placed. Remains on O2 and was on BiPAP overnight. Shortness of breath present but slightly better. Denied other complaints at this time Objective Data Objective Data Vital Signs: Vital Signs Temp Pulse Resp BP Pulse Ox O2 Del Method O2 Flow Rate 97.9 F 97 18 128/78 H 100 Nasal Cannula 4 07/04/22 09:04 07/04/22 09:04 07/04/22 09:04 07/04/22 09:04 07/04/22 09:04 07/04/22 09:04 07/04/22 09:04 FiO2 40 07/04/22 03:31 Oxygen Flow Rate (L/min) 4 Oxygen Delivery Method Nasal Cannula Weight: 96.162 kg Body Mass Index (BMI) 31.3 Intake & Output: Intake and Output for Last 24 Hours 07/02/22 07/03/22 07/04/22 23:59 23:59 23:59 Intake Total 865 / 865 Output Total 420 / 420 350 / 350 Balance 445 / 445 -350 / -350 Lab / Micro Data Result Diagrams: 07/04/22 06:49 07/04/22 06:49 Labs: Laboratory Results - last 24 hr 07/03/22 12:07: Sodium 125 L, Potassium 5.5 H, Chloride 89 L, Carbon Dioxide 33.0 H, Anion Gap 3 L, BUN 21 H, Creatinine 0.75, Estim Creat Clear Calc 54.99, Est GFR (MDRD) Af Amer 128, Est GFR (MDRD) Non-Af 106, BUN/Creatinine Ratio 28.1 H, Glucose 134 H, Calcium 8.6, Troponin I High Sens 227 H* 07/03/22 16:35: Sodium 125 L, Potassium 5.3 H, Chloride 88 L, Carbon Dioxide 33.0 H, Anion Gap 4 L, BUN 23 H, Creatinine 0.76, Estim Creat Clear Calc 54.99, Est GFR (MDRD) Af Amer 125, Est GFR (MDRD) Non-Af 104, BUN/Creatinine Ratio 30.2 H, Glucose 123 H, Calcium 8.3 L 07/03/22 16:35: Serum Osmolality 267 L 07/03/22 16:35: Cortisol 30.50 H 07/03/22 16:35: WBC 11.8 H, RBC 4.28 L, Hgb 12.7 L, Hct 38.1 L, MCV 89.0, MCH 29.7, MCHC 33.3, RDW Std Deviation 42.0, RDW Coeff of Brent 13.0, Plt Count 454 H, MPV 8.5, Immature Gran % (Auto) 0.600, Neut % (Auto) 83.6 H, Lymph % (Auto) 5.1 L, Stanton % (Auto) 10.2 H, Eos % (Auto) 0.3, Baso % (Auto) 0.2, Absolute Neuts (auto) 9.8 H, Absolute Lymphs (auto) 0.60 L, Nucleated RBC % 0, Differential Comment SEE COMMENT, Platelet Estimate SLT INC, RBC Morphology N CHROM, Anisocytosis RARE 07/03/22 16:35: B-Natriuretic Peptide 601.0 H 07/04/22 06:49: Sodium 125 L, Potassium 5.6 H, Chloride 89 L, Carbon Dioxide 33.0 H, Anion Gap 3 L, BUN 28 H, Creatinine 0.73, Estim Creat Clear Calc 54.99, Est GFR (MDRD) Af Amer 132, Est GFR (MDRD) Non-Af 109, BUN/Creatinine Ratio 38.4 H, Glucose 109 H, Calcium 8.7 07/04/22 06:49: WBC 10.8, RBC 4.36 L, Hgb 13.3, Hct 39.6 L, MCV 90.8, MCH 30.5, MCHC 33.6, RDW Std Deviation 42.4, RDW Coeff of Brent 12.9, Plt Count 477 H, MPV 8.5, Immature Gran % (Auto) 0.500, Neut % (Auto) 79.9 H, Lymph % (Auto) 6.2 L, Stanton % (Auto) 12.7 H, Eos % (Auto) 0.5, Baso % (Auto) 0.2, Absolute Neuts (auto) 8.7 H, Absolute Lymphs (auto) 0.67 L, Nucleated RBC % 0 Micro: Microbiology 07/03/22 12:53 Urine, Clean Catch Legionella Antigen - Final 07/03/22 12:45 Urine, Clean Catch Streptococcus pneumoniae Antigen (M - Final ABG Data ABG results: ABG 07/03/22 16:59 Specimen Type BREANNE VBG pH 7.34 VBG pO2 102 H VBG HCO3 30 H VBG Total CO2 32 VBG O2 Sat (Calc) 97 H VBG Base Excess 4 H POC Mix VBG pCO2 Pt Tmp 55.9 H Rhythm Strip Rhythm Strip: A-fib Rate: 135 Ectopy: None Physical Exam Const alert HEENT normocephalic and head/scalp atraumatic Eyes Eyes Narrative: EOM grossly intact, anicteric Neck supple Resp Resp Narrative: Slight increased work of breathing, diminished at the bases Cardio Cardio Narrative: Irregular irregular GI soft to palpation, non-tender and non-distended Extremity Extremity Narrative: No edema appreciated Neuro moves all extremities Neuro Narrative: No overt focal deficits appreciated Psych Psych Narrative: Seems slightly frustrated Assessment & Plan Assessment/Plan (1) Atrial fibrillation with rapid ventricular response: (2) Acute respiratory failure with hypoxia: (3) Pneumonia: PLAN: Plan #Acute hypoxic respiratory failure secondary to community-acquired pneumonia He was hypoxic to 82% and also tachypneic with a leukocytosis On Rocephin and azithromycin BiPAP as needed Slowly improving Also treat any concomitant fluid overload with Lasix #A. fib with RVR Improved with Cardizem bolus On amiodarone, Eliquis Carvedilol dose increased #Heart failure with reduced ejection fraction Heart cath 06/16/2022 with reduced EF consistent with Takotsubo cardiomyopathy with mild to moderate narrowing of coronary arteries Medical management was recommended Daily weights, is noted to be down in weight today Lasix, beta-gabrielle, ARB given hyperkalemia #Urinary retention Was retaining, necessitated Vang placement after void trial Does take tamsulosin, given Vang placed we will hold #Acute hyponatremia Asymptomatic Legionella negative Low serum osms Fluid restriction Awaiting urine studies #Hyperkalemia Kayexalate Given Lasix, will recheck #NSTEMI, suspect type II Likely secondary to A. fib with RVR No chest pain #DVT ppx: Yumiko Harvey MD Charges/Coding Visit Charges Inpatient E&M: 65216 Subs Hosp L2
[2022-07-04] MEDS: Tamsulosin HCl 0.4 MG Capsule PO (10:53)
[2022-07-04] MEDS: Polyethylene Glycol 3350 17 GM PACKET PO (10:53)
[2022-07-04] MEDS: Docusate Sodium 100 MG Capsule PO (10:53)
[2022-07-04] MEDS: APIXABAN 5 MG TABLET PO (10:54)
[2022-07-04] MEDS: Amiodarone 200 MG Tablet 100 MG PO (10:54)
[2022-07-04] MEDS: Furosemide 20 MG Tablet PO (10:54)
[2022-07-04] MEDS: Furosemide 20 MG/2 ML VIAL 10 MG IV (12:05)
[2022-07-04 12:37] LABS: Bacteria 0 SEEN /hpf (None Seen); Mucous, Urine 0 SEEN /hpf (<or=2+); Squamous Epithelial Cells - UA 0 SEEN /hpf (0-5)
[2022-07-04 12:41] LABS: Color, Urine Yellow (Yellow); Glucose, Dipstick Normal (Normal); Ketone-Dipstick 5 mg/dl (Negative); Leukocyte Esterase-Dipstick 500 /ul (Negative); Nitrite-Dipstick Negative (Negative); Occult Blood-Urine 250 /ul (Negative); Protein-Dipstick 30 mg/dl (Negative); Urine Bilirubin Dipstick Negative (Negative); Urine Clarity Sl. Cloudy (Clear); Urine Urobilinogen 1 mg/dl (Normal)
[2022-07-04 12:47] LABS: Red Blood Cells-Urine 10-25 SEEN /hpf (0-5); White Blood Cells >100 SEEN /hpf (0-5)
[2022-07-04 13:42] LABS: Osmolality, Urine 702 mOsm/KG; Urea Nitrogen, Urine 1283 mg/dL (NO RANGE EST.); Urine Chloride < 10 mmol/L (Not Establ.); Urine Sodium < 5 mmol/L (Not Establ.)
[2022-07-04 15:30] LABS: Anion Gap 1 (5-15); BUN 29 mg/dL (7-18); BUN/Creat Ratio 34.7 RATIO (10-20); Calcium,Total 8.8 mg/dL (8.5-10.1); Chloride 89 mmol/L (98-107); Creatinine, Serum 0.84 mg/dL (0.70-1.30); EST Glomerular Filtration Rate 93 mL/min (>60); Est Glom Filt Rate - Afr Amer 112 mL/min (>60); Estimated Creatinine Clearance 65.46 ml/min; Glucose 137 mg/dL (74-106); Potassium 6.6 mmol/L (3.5-5.1); Sodium Level 127 mmol/L (136-145)
--- NOTE | 2022-07-04 15:30 | EKG12_ITS ---
Test Reason : Blood Pressure : / mmHG Vent. Rate : 099 BPM Atrial Rate : 264 BPM P-R Int : 000 ms QRS Dur : 132 ms QT Int : 338 ms P-R-T Axes : 270 097 -75 degrees QTc Int : 433 ms Atrial flutter with variable A-V block with premature ventricular or aberrantly conducted complexes Right bundle branch block Anteroseptal infarct (cited on or before 16-JUN-2022) T wave abnormality, consider lateral ischemia Abnormal ECG When compared with ECG of 03-JUL-2022 02:39, Atrial flutter has replaced Atrial fibrillation Serial changes of Anteroseptal infarct Present Confirmed by AUNDREA SOLIS, ANN ([id number]), commercial production editor CATHERINE HOBBS ([id number]) on 07/07/2022 11:07:23 AM Referred By: VIVIAN Confirmed By:ANN GUILLAUME MD
[2022-07-04 15:53] LABS: AST(SGOT) 34 U/L (15-37); Alanine Aminotransfer ALT/SGPT 26 U/L (16-61); Albumin, Serum 2.5 g/dL (3.2-5.0); Alkaline Phosphatase 82 U/L (45-117); Bilirubin, Direct 0.18 mg/dL (0.00-0.30); CPK Total, Creatine Kinase 189 U/L (39-308); Globulin 3.8 g/dL (2.2-4.2); Protein, Total 6.3 g/dL (6.4-8.2)
[2022-07-04 16:06] LABS: Magnesium 2.3 mg/dL (1.6-2.6); Phosphorus 4.8 mg/dL (2.5-4.9)
[2022-07-04 17:05] LABS: Allen Test Positive; Base Excess 5 mmol/L (-2 to +2); Bicarbonate 32.5 mmol/L (22-26); Blood Gas Specimen Type ART; O2 Delivery Device Cannula; PO2 70 mmHG (75-100); SITE L Radial; SO2 90 % (95-99); Total Carbon Dioxide 35 mmol/L; pCO2 73.6 mmHg (35-45); pH 7.25 (7.35-7.45)
--- NOTE | 2022-07-04 17:10 | RAD_ITS ---
STUDY: X-RAY CHEST REASON FOR EXAM: Male, 86 years old. shortness of breath TECHNIQUE: Single frontal view of the chest. COMPARISON: July 03, 2022 FINDINGS: Right IJ catheter unchanged. Moderate bilateral interstitial infiltrates. Left greater than right pleural effusions unchanged. Normal size heart. Normal mediastinum and mila. Normal visualized pulmonary arteries. Normal visualized aortic arch and descending thoracic aorta. Normal visualized thoracic spine. Normal visualized ribs, clavicles, and shoulders. There is no demonstrated abnormality of the visualized soft tissue structures of the upper abdomen. RAD/Chest 1 View (Portable) IMPRESSION: Left greater than right pleural effusions slightly increased. Electronically Signed: Galindo Rivera MD at 18:33 EST ,
[2022-07-04] MEDS: Albuterol 2.5 MG/3 ML VIAL.NEB. INHALATION (17:27)
--- NOTE | 2022-07-04 17:27 | CPS ---
Critical C02 value verified times two. Repotred value to charge nurse. Verivied by read back.
[2022-07-04] MEDS: Calcium Gluconate 1 GM/10 ML Vial IVP (18:15)
[2022-07-04 19:15] LABS: Bedside Glucose 134 mg/dL (74-106)
[2022-07-04 19:15] LABS: Bedside Glucose 140 mg/dL (74-106)
[2022-07-04] MEDS: Bisacodyl 10 MG Suppository RC (20:45)
[2022-07-04 21:00] LABS: Bedside Glucose 146 mg/dL (74-106)
[2022-07-04 21:31] LABS: Bedside Glucose 144 mg/dL (74-106)
[2022-07-04 21:36] LABS: Allen Test Positive; Base Excess 8 mmol/L (-2 to +2); Blood Gas Specimen Type ART; FI02 50; O2 Delivery Device BiPAP; PEEP 8; PO2 105 mmHG (75-100); RR 12; SITE L Radial; SO2 96 % (95-99); Total Carbon Dioxide 39 mmol/L; pCO2 88.9 mmHg (35-45); pH 7.22 (7.35-7.45)
[2022-07-04] MEDS: Ceftriaxone 1 GM/50 ML BAG IV (21:51)
--- NOTE | 2022-07-04 22:34 | NURSING ---
called pts step daughter, Vale, to let her know that pt had another high CO2 value come back and he needs to keep his bipap on, but he keeps ripping it off. This RN asked if it would come down to it, would the family like the pt intubated. Vale stated that her mom is the POA and hard of hearing, and can be confused at time, but she would call and talk to her and see what they would like to do. Vale called back in and said her and her mother discussed options and they would like the patient intubated if need be.
[2022-07-05] VITALS (24 sets, daily range): BP systolic 96–147; BP diastolic 54–74; PULSE 59–123; RESP 12–27; TEMP 36.3–36.9; O2SAT 93–100
--- NOTE | 2022-07-05 00:36 | CPS ---
called to pt rm for third time due to pt ripping his BiPAP mask off and throwing it, pt refusing to wear BiPAP and states shoot me , and just let me , pt combative with all staff, despite trying to get pt to wear BiPAP placed on 2Lpm NC
--- NOTE | 2022-07-05 00:45 | NURSING ---
pt getting aggressive and combative with all staff, pulling off bipap and throwing it across the room. pt attempting to break tele cords, wont keep pulse ox on. refuses to keep it on. attempted to educated pt on poc and need for bipap. pt placed on 4L NC. called pts family and they agreed to come in and sit with him.
[2022-07-05] MEDS: RisperiDONE 1 MG Tablet PO (01:35)
[2022-07-05 06:51] LABS: Anion Gap 8 (5-15); BUN 36 mg/dL (7-18); BUN/Creat Ratio 41.2 RATIO (10-20); Calcium,Total 8.4 mg/dL (8.5-10.1); Chloride 90 mmol/L (98-107); Creatinine, Serum 0.87 mg/dL (0.70-1.30); EST Glomerular Filtration Rate 88 mL/min (>60); Est Glom Filt Rate - Afr Amer 107 mL/min (>60); Estimated Creatinine Clearance 63.21 ml/min; Glucose 72 mg/dL (74-106); Potassium 7.5 mmol/L (3.5-5.1); Sodium Level 121 mmol/L (136-145)
--- NOTE | 2022-07-05 06:58 | EKG12_ITS ---
Test Reason : HYPERKALEMIA Blood Pressure : / mmHG Vent. Rate : 124 BPM Atrial Rate : 293 BPM P-R Int : 000 ms QRS Dur : 098 ms QT Int : 292 ms P-R-T Axes : -79 092 236 degrees QTc Int : 419 ms Atrial flutter with variable A-V block with premature ventricular or aberrantly conducted complexes Rightward axis Low voltage QRS Cannot rule out Anteroseptal infarct , age undetermined T wave abnormality, consider lateral ischemia Abnormal ECG Confirmed by AUNDREA SOLIS, ANN ([id number]), sound editor CATHERINE HOBBS ([id number]) on 07/07/2022 11:10:13 AM Referred By: VIVIAN Confirmed By:ANN GUILLAUME MD
--- NOTE | 2022-07-05 07:39 | NURSING ---
late entry; 07-04-2022 1645; Pt noted to be getting out of chair on own. He was assisted back to bed with max assist. Pt very big sandy and not responding to nurse. Skin diaphoretic. Vss. BS 140. spo2 on [address] Harvey notified of mental status change, she came in to assess pt. Orders received. Once pt was in bed he did respond to voice. 1730; Pt was placed on Bipap per respiratory due to ABG results. Pt tolerated Bipap well. 1830; Pt daughter and in to visit they were updated on pt condition per Dr. Harvey.
[2022-07-05] MEDS: Calcium Gluconate 1 GM/10 ML Vial IVP (07:41)
[2022-07-05] MEDS: 0.9% Saline Lock 10 ML Syringe IV (07:44)
[2022-07-05 08:34] LABS: Absolute Lymphocyte Count 0.89 X10^3/uL (0.83-4.51); Absolute Neutrophil Count 11.1 X10^3/uL (2.0-7.7); Basophil# 0.02 X10^3/uL; Basophil% 0.1 % (0-1); Eosinophil# 0.02 X10^3/uL; Eosinophils% 0.1 % (0-5); Hematocrit 40.9 % (40-54); Hemoglobin 13.5 g/dL (13.0-16.5); Lymphocyte # 0.89 X10^3/ul (0.83-4.51); Lymphocyte % 6.4 % (19-41); Mean Corpuscular Hgb 30.3 pg (27.0-32.0); Mean Corpuscular Volume 91.9 fL (80-94); Mean Platelet Vol. 8.3 fl (6.2-12.0); Monocyte# 1.79 X10^3/uL; Monocyte% 12.9 % (0-10); NRBC Flagged by Analyzer 0 % (0-5); Neutrophil # 11.08 X10^3/uL (2.7-7.7); Neutrophil % 80.1 % (47-70); POSITIVE DIFFERENTIAL YES; Platelet Count 472 K/mm3 (150-450); RBC Distribution Width CV 13.1 % (11.6-14.6); RBC Distribution Width SD 43.6 fl (35.1-43.9); Red Blood Count 4.45 M/mm3 (4.6-6.2); White Blood Count 13.9 K/mm3 (4.4-11.0)
[2022-07-05 08:35] LABS: Differential Indicated SCAN CRITERIA MET
--- NOTE | 2022-07-05 09:09 | NURSING ---
called Mireille with update
--- NOTE | 2022-07-05 09:37 | PCM.CONS.R ---
Assessment & Plan Assessment/Plan (1) Hyponatremia: PLAN: Elderly male with pneumonia presents with worsening of hyponatremia. On exam it is euvolemic hyponatremia. He has undetectable urine sodium so it is not SIADH, but rather decreased oral solute intake combined with some sodium loss with diuretics. Having low urine sodium making his kidneys hold on potassium to maintain electrolyte balance, thus he has developed hyperkalemia Suggest Stop lasix Start saline (1) Hyponatremia: PLAN: Elderly male with pneumonia presents with worsening of hyponatremia. On exam it is euvolemic hyponatremia. He has undetectable urine sodium so it is not SIADH, but rather decreased oral solute intake combined with some sodium loss with diuretics. Having low urine sodium making his kidneys hold on potassium to maintain electrolyte balance, thus he has developed hyperkalemia Suggest Stop lasix Start saline HPI Consult Data Date of Consult: 07/05/22 HPI Narrative Reason for Consultation: Hyponatremia HPI Narrative: MARYAN OLIVA, is a 86 M who presents to ER on 07/03/2022 with dyspnea. He has been diagnosed with pneumonia and has been started on Zithromax. He has history of mild hyponatremia for years with Na is 130-134 range. he has been taking lasix at home. his Na on admission was low 124 and he has been given NS with an improvement to 127. Then NS has been stopped and he has been started on lasix. Now Na is down to 121. Shira on admission was undetectable and U Cr was 127. He has been eating poorly and has no peripheral edema. 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 Myasthenia gravis Recurrent UTI Restless legs Takotsubo cardiomyopathy Wears dentures Wears glasses Wears hearing aid Home Medications apixaban 5 mg tablet (Eliquis) 5 mg PO BID 30 days #60 tabs 06/19/22 [Rx Last Taken Unknown] aspirin 81 mg tablet,delayed release 81 mg PO BREAKFAST 30 days #30 tabs 06/19/22 [Rx Last Taken Unknown] carvedilol 3.125 mg tablet 3.125 mg PO BIDCM 30 days #60 tabs 06/19/22 [Rx Last Taken Unknown] furosemide 20 mg tablet 20 mg PO DAILY 30 days #30 tabs 06/19/22 [Rx Last Taken Unknown] amiodarone 200 mg tablet 100 mg PO DAILY 30 days #15 tabs 06/25/22 [Rx Last Taken Unknown] atorvastatin 80 mg tablet 40 mg PO QHS 30 days #30 tabs 06/25/22 [Rx Last Taken Unknown] losartan 25 mg tablet 25 mg PO DAILY #30 tabs 07/01/22 [Rx Last Taken Unknown] tamsulosin 0.4 mg capsule 0.4 mg PO DAILY #90 caps 07/02/22 [Rx Last Taken Unknown] amoxicillin 875 mg-potassium clavulanate 125 mg tablet 1 tab PO BID antibiotic 07/03/22 [History Last Taken Unknown] Allergy/AdvReac Type Severity Reaction Status Date / Time pembrolizumab [From [facility]] AdvReac Severe Myasthenia Verified 06/25/22 10:26 gravis lisinopril AdvReac Intermediate Dry Verified 07/01/22 17:25 persistent cough Family History Mother Colon cancer Brother Cancer prostate Father Heart disease Surgical History History of cataract extraction History of excision of mass Social History Smoking Status: Former smoker Tobacco: How many years used: 32 Electronic Cigarette Use: not used second hand exposure: No alcohol intake: current alcohol intake frequency: 0-2 drinks per day details: socially substance use type: does not use caffeine: Yes Type: coffee Number of servings: 2 destini/jewish: Mosque seatbelt use: always do you feel safe at home: Yes ROS Review of Systems ROS Unobtainable: due to mental condition and due to mental status Physical Exam Narrative Elderly male, very hard of hearing that prevents appropriate questioning. He is on BiPAP today Const General Appearance: well developed, frail and on BiPAP Orientation / Consciousness: other Other Details: does not participate in the conversation but moving appropriately Exam Limitations: behavioral limitations Nutritional Appearance: overweight HEENT normocephalic HEENT Narrative: dry mucosa Head and Scalp: normocephalic and atraumatic Eyes no scleral icterus General Eye: normal appearance of both eyes Neck supple and no carotid bruits Carotids: bruit Lymph Lymphatic: no lymphadenopathy noted Resp clear to auscultation bilaterally Auscultation: diminished lung sounds Cardio Cardio Narrative: irregular rhythm, tachycardic Rhythm: abnormal rhythm GI soft to palpation, non-tender and no masses Auscultation: normoactive bowel sounds Skin no rashes or lesions noted Lab / Micro Data Attestation: I reviewed the patient's lab results. Result Diagrams: 07/05/22 08:09 07/05/22 04:55 Labs: Laboratory Results - last 24 hr 07/03/22 12:10: Urine Color Yellow, Urine Clarity Sl. Cloudy, Urine pH 6.0, Ur Specific [place] 1.020, Urine Protein 30 H, Urine Glucose (UA) Normal, Urine Ketones 5 H, Urine Occult Blood 250 H, Urine Nitrite Negative, Urine Bilirubin Negative, Urine Urobilinogen 1 H, Ur Leukocyte Esterase 500 H, Urine RBC 10-25 SEEN, Urine WBC >100 SEEN, Ur Squamous Epith Cells 0 SEEN, Urine Bacteria 0 SEEN, Urine Mucus 0 SEEN 07/03/22 12:10: Urine Osmolality 702, Ur Random Sodium < 5, Urine Creatinine 131.00, Urine Potassium 15.0, Urine Chloride < 10, Urine Urea Nitrogen 1283 07/04/22 14:30: Sodium 127 L, Potassium 6.6 H*, Chloride 89 L, Carbon Dioxide 37.0 H, Anion Gap 1 L, BUN 29 H, Creatinine 0.84, Estim Creat Clear Calc 65.46, Est GFR (MDRD) Af Amer 112, Est GFR (MDRD) Non-Af 93, BUN/Creatinine Ratio 34.7 H, Glucose 137 H, Calcium 8.8 07/04/22 14:30: Phosphorus 4.8, Magnesium 2.3 07/04/22 14:30: Total Bilirubin 0.70, Direct Bilirubin 0.18, AST 34, ALT 26, Alkaline Phosphatase 82, Total Creatine Kinase 189, Total Protein 6.3 L, Albumin 2.5 L, Globulin 3.8 07/04/22 16:21: POC Glucose 140 H 07/04/22 18:19: POC Glucose 134 H 07/04/22 20:33: POC Glucose 146 H 07/04/22 21:10: POC Glucose 144 H 07/05/22 04:55: WBC Cancelled, Corrected WBC Cancelled, RBC Cancelled, Hgb Cancelled, Hct Cancelled, MCV Cancelled, MCH Cancelled, MCHC Cancelled, RDW Std Deviation Cancelled, RDW Coeff of Brent Cancelled, Plt Count Cancelled, MPV Cancelled, Immature Gran % (Auto) Cancelled, Neut % (Auto) Cancelled, Lymph % (Auto) Cancelled, [place] % (Auto) Cancelled, Eos % (Auto) Cancelled, Baso % (Auto) Cancelled, Absolute Neuts (auto) Cancelled, Absolute Lymphs (auto) Cancelled, Total Counted Cancelled, Neutrophils % (Manual) Cancelled, Band Neutrophils % Cancelled, Lymphocytes % (Manual) Cancelled, Monocytes % (Manual) Cancelled, Eosinophils % (Manual) Cancelled, Basophils % (Manual) Cancelled, Metamyelocytes % Cancelled, Myelocytes % Cancelled, Promyelocytes % Cancelled, Blast Cells % Cancelled, Plasma Cell % (Manual) Cancelled, Other Cells % Cancelled, Nucleated RBC % Cancelled, Nucleated RBCs/100 WBC Cancelled, Differential Comment Cancelled, Diff Path Review Cancelled, Hypersegmented Neuts Cancelled, Atypical Lymphocytes Cancelled, Reactive Lymphocytes Cancelled, Smudge Cells Cancelled, Toxic Granulation Cancelled, Toxic Vacuolation Cancelled, Dohle Bodies Cancelled, July Rods Cancelled, Platelet Estimate Cancelled, Plt Morphology Comment Cancelled, RBC Morphology Cancelled, Polychromasia Cancelled, Hypochromasia Cancelled, Poikilocytosis Cancelled, Basophilic Stippling Cancelled, Anisocytosis Cancelled, Microcytosis Cancelled, Macrocytosis Cancelled, Spherocytes Cancelled, Sickle Cells Cancelled, Target Cells Cancelled, Tear Drop Cells Cancelled, Ovalocytes Cancelled, Stomatocytes Cancelled, [place] Bodies Cancelled, [place] Cells Cancelled, Bite Cells Cancelled, Crenated Cell Cancelled, Acanthocytes (Spur) Cancelled, Rouleaux Cancelled, Schistocytes Cancelled 07/05/22 04:55: Sodium 121 L, Potassium 7.5 H*, Chloride 90 L, Carbon Dioxide 23.0, Anion Gap 8, BUN 36 H, Creatinine 0.87, Estim Creat Clear Calc 63.21, Est GFR (MDRD) Af Amer 107, Est GFR (MDRD) Non-Af 88, BUN/Creatinine Ratio 41.2 H, Glucose 72 L, Calcium 8.4 L 07/05/22 08:09: WBC 13.9 H, RBC 4.45 L, Hgb 13.5, Hct 40.9, MCV 91.9, MCH 30.3, MCHC 33.0, RDW Std Deviation 43.6, RDW Coeff of Brent 13.1, Plt Count 472 H, MPV 8.3, Immature Gran % (Auto) 0.400, Neut % (Auto) 80.1 H, Lymph % (Auto) 6.4 L, [place] % (Auto) 12.9 H, Eos % (Auto) 0.1, Baso % (Auto) 0.1, Absolute Neuts (auto) 11.1 H, Absolute Lymphs (auto) 0.89, Nucleated RBC % 0, Diff Path Review December foll Micro: Microbiology 07/03/22 12:53 Urine, Clean Catch Urine Culture - Preliminary Culture exhibits no growth. 07/03/22 12:53 Urine, Clean Catch Legionella Antigen - Final ABG Data ABG results: ABG 07/04/22 07/04/22 17:00 21:27 Specimen Type ART ART Sample Site L Radial L Radial pH 7.25 L 7.22 L Bicarbonate Actual 32.5 H 36.0 H Total CO2 35 39 Base Excess 5 H 8 H O2 Saturation 90 L 96 O2 % 50 ABG pCO2 73.6 H* 88.9 H* ABG pO2 70 L 105 H Constantino Test Positive Positive Respiration Rate 12 O2 Delivery Device Cannula BiPAP Liter Flow 4.0 POC PEEP 8 Crit Call To/Read Back Yes Yes Blood Gas Notified Whom [email or web address] Rhythm Strip Rhythm Strip: A-fib Rate: 135 Ectopy: None Radiology Impression Chest X-Ray 07/04/22 17:10 IMPRESSION: Left greater than right pleural effusions slightly increased. Electronically Signed: Galindo Rivera MD at 18:33 EST Reading Location ID and State: [address] [place] [address] , Service support ,
[2022-07-05 10:15] LABS: Uric Acid 5.4 mg/dL (3.5-7.2)
--- NOTE | 2022-07-05 10:22 | PN.HOSP_ITS ---
Subjective Subjective Tired this morning, had gone off BiPAP yesterday evening for meds and did not put it back on, became tired and altered and PCO2 was in the 80s. BiPAP was replaced, he was agitated so family called to sit with him. Objective Data Objective Data Vital Signs: Vital Signs Temp Pulse Resp BP Pulse Ox O2 Del Method O2 Flow Rate 97.7 F L 122 H 26 H 147/66 H 99 Bi-pap 2 07/05/22 07:57 07/05/22 08:00 07/05/22 07:57 07/05/22 07:57 07/05/22 07:57 07/05/22 07:57 07/05/22 00:36 FiO2 40 07/05/22 07:57 Oxygen Flow Rate (L/min) 2 Oxygen Delivery Method Bi-pap Weight: 96.162 kg Body Mass Index (BMI) 31.3 Intake & Output: Intake and Output for Last 24 Hours 07/03/22 07/04/22 07/05/22 23:59 23:59 23:59 Intake Total 865 / 865 650 / 650 755 / 755 Output Total 420 / 420 1030 / 1030 350 / 350 Balance 445 / 445 -380 / -380 405 / 405 Lab / Micro Data Result Diagrams: 07/05/22 08:09 07/05/22 04:55 Labs: Laboratory Results - last 24 hr 07/03/22 12:10: Urine Color Yellow, Urine Clarity Sl. Cloudy, Urine pH 6.0, Ur Specific [place] 1.020, Urine Protein 30 H, Urine Glucose (UA) Normal, Urine Ketones 5 H, Urine Occult Blood 250 H, Urine Nitrite Negative, Urine Bilirubin Negative, Urine Urobilinogen 1 H, Ur Leukocyte Esterase 500 H, Urine RBC 10-25 SEEN, Urine WBC >100 SEEN, Ur Squamous Epith Cells 0 SEEN, Urine Bacteria 0 SEEN, Urine Mucus 0 SEEN 07/03/22 12:10: Urine Osmolality 702, Ur Random Sodium < 5, Urine Creatinine 131.00, Urine Potassium 15.0, Urine Chloride < 10, Urine Urea Nitrogen 1283 07/04/22 14:30: Sodium 127 L, Potassium 6.6 H*, Chloride 89 L, Carbon Dioxide 37.0 H, Anion Gap 1 L, BUN 29 H, Creatinine 0.84, Estim Creat Clear Calc 65.46, Est GFR (MDRD) Af Amer 112, Est GFR (MDRD) Non-Af 93, BUN/Creatinine Ratio 34.7 H, Glucose 137 H, Calcium 8.8 07/04/22 14:30: Phosphorus 4.8, Magnesium 2.3 07/04/22 14:30: Total Bilirubin 0.70, Direct Bilirubin 0.18, AST 34, ALT 26, Alkaline Phosphatase 82, Total Creatine Kinase 189, Total Protein 6.3 L, Albumin 2.5 L, Globulin 3.8 07/04/22 16:21: POC Glucose 140 H 07/04/22 18:19: POC Glucose 134 H 07/04/22 20:33: POC Glucose 146 H 07/04/22 21:10: POC Glucose 144 H 07/05/22 04:55: WBC Cancelled, Corrected WBC Cancelled, RBC Cancelled, Hgb Cancelled, Hct Cancelled, MCV Cancelled, MCH Cancelled, MCHC Cancelled, RDW Std Deviation Cancelled, RDW Coeff of Brent Cancelled, Plt Count Cancelled, MPV Cancelled, Immature Gran % (Auto) Cancelled, Neut % (Auto) Cancelled, Lymph % (Auto) Cancelled, [place] % (Auto) Cancelled, Eos % (Auto) Cancelled, Baso % (Auto) Cancelled, Absolute Neuts (auto) Cancelled, Absolute Lymphs (auto) Cancelled, Total Counted Cancelled, Neutrophils % (Manual) Cancelled, Band Neutrophils % Cancelled, Lymphocytes % (Manual) Cancelled, Monocytes % (Manual) Cancelled, Eosinophils % (Manual) Cancelled, Basophils % (Manual) Cancelled, Metamyelocytes % Cancelled, Myelocytes % Cancelled, Promyelocytes % Cancelled, Blast Cells % Cancelled, Plasma Cell % (Manual) Cancelled, Other Cells % Cancelled, Nucleated RBC % Cancelled, Nucleated RBCs/100 WBC Cancelled, Differential Comment Cancelled, Diff Path Review Cancelled, Hypersegmented Neuts Cancelled, Atypical Lymphocytes Cancelled, Reactive Lymphocytes Cancelled, Smudge Cells Cancelled, Toxic Granulation Cancelled, Toxic Vacuolation Cancelled, Dohle Bodies Cancelled, July Rods Cancelled, Platelet Estimate Cancelled, Plt Morphology Comment Cancelled, RBC Morphology Cancelled, Polychromasia Cancelled, Hypochromasia Cancelled, Poikilocytosis Cancelled, Basophilic Stippling Cancelled, Anisocytosis Cancelled, Microcytosis Cancelled, Macrocytosis Cancelled, Spherocytes Cancelled, Sickle Cells Cancelled, Target Cells Cancelled, Tear Drop Cells Cancelled, Ovalocytes Cancelled, Stomatocytes Cancelled, [place] Bodies Cancelled, [place] Cells Cancelled, Bite Cells Cancelled, Crenated Cell Cancelled, Acanthocytes (Spur) Cancelled, Rouleaux Cancelled, Schistocytes Cancelled 07/05/22 04:55: Sodium 121 L, Potassium 7.5 H*, Chloride 90 L, Carbon Dioxide 23.0, Anion Gap 8, BUN 36 H, Creatinine 0.87, Estim Creat Clear Calc 63.21, Est GFR (MDRD) Af Amer 107, Est GFR (MDRD) Non-Af 88, BUN/Creatinine Ratio 41.2 H, Glucose 72 L, Calcium 8.4 L 07/05/22 08:09: WBC 13.9 H, RBC 4.45 L, Hgb 13.5, Hct 40.9, MCV 91.9, MCH 30.3, MCHC 33.0, RDW Std Deviation 43.6, RDW Coeff of Brent 13.1, Plt Count 472 H, MPV 8.3, Immature Gran % (Auto) 0.400, Neut % (Auto) 80.1 H, Lymph % (Auto) 6.4 L, [place] % (Auto) 12.9 H, Eos % (Auto) 0.1, Baso % (Auto) 0.1, Absolute Neuts (auto) 11.1 H, Absolute Lymphs (auto) 0.89, Nucleated RBC % 0, Diff Path Review December07/05/22 08:09: Uric Acid 5.4 Micro: Microbiology 07/03/22 12:53 Urine, Clean Catch Urine Culture - Final Culture exhibits no growth. 07/03/22 12:53 Urine, Clean Catch Legionella Antigen - Final 07/03/22 12:45 Urine, Clean Catch Streptococcus pneumoniae Antigen (M - Final ABG Data ABG results: ABG 07/04/22 07/04/22 17:00 21:27 Specimen Type ART ART Sample Site L Radial L Radial pH 7.25 L 7.22 L Bicarbonate Actual 32.5 H 36.0 H Total CO2 35 39 Base Excess 5 H 8 H O2 Saturation 90 L 96 O2 % 50 ABG pCO2 73.6 H* 88.9 H* ABG pO2 70 L 105 H Constantino Test Positive Positive Respiration Rate 12 O2 Delivery Device Cannula BiPAP Liter Flow 4.0 POC PEEP 8 Crit Call To/Read Back Yes Yes Blood Gas Notified Whom [facility]e Radiography Diagnostic Testing: Radiology Impression Chest X-Ray 07/04/22 17:10 IMPRESSION: Left greater than right pleural effusions slightly increased. Electronically Signed: Galindo Rivera MD at 18:33 EST , Rhythm Strip Rhythm Strip: A-fib Rate: 135 Ectopy: None Physical Exam Const Constitutional Narrative: Tired, on BiPAP but wakes up to voice today HEENT normocephalic and head/scalp atraumatic Eyes Eyes Narrative: EOM grossly intact, anicteric Neck supple Resp Resp Narrative: On CPAP, diminished at the bases Cardio Cardio Narrative: Irregular irregular GI soft to palpation, non-tender and non-distended Extremity Extremity Narrative: No edema appreciated Neuro moves all extremities Neuro Narrative: No overt focal deficits appreciated Psych Psych Narrative: Minimally cooperative Assessment & Plan Assessment/Plan (1) Atrial fibrillation with rapid ventricular response: (2) Acute respiratory failure with hypoxia: (3) Pneumonia: PLAN: Plan #Acute hypoxic respiratory failure secondary to community-acquired pneumonia He was hypoxic to 82% and also tachypneic with a leukocytosis On Rocephin and azithromycin BiPAP as needed Slowly improving Also treat any concomitant fluid overload with Lasix 07/05: Nephro consulted for hyponatremia and hyperkalemia and it was felt it was secondary to volume depletion and Lasix so fluids being given. Does become significantly hypercapnic when off CPAP for a prolonged period of time. Once more alert can have it off for meds and meals but will need to resume shortly after #A. fib with RVR Improved with Cardizem bolus On amiodarone, Eliquis Carvedilol dose increased #Heart failure with reduced ejection fraction Heart cath 06/16/2022 with reduced EF consistent with Takotsubo cardiomyopathy with mild to moderate narrowing of coronary arteries Medical management was recommended Daily weights, is noted to be down in weight today On beta-gabrielle, held ARB given hyperkalemia Lasix due to concern for depletion leading to electrolyte abnormalities #Urinary retention Was retaining, necessitated Vang placement after void trial Does take tamsulosin, given Vang placed we will hold #Acute hyponatremia Asymptomatic Legionella negative Low serum osms Fluid restriction Awaiting urine studies 07/05: Initially had improved but worsened overnight. Nephrology consulted and felt it was due to volume depletion based on labs and clinical picture, he has been placed on normal saline. We will repeat BMP this afternoon #Hyperkalemia Kayexalate Given Lasix, will recheck 07/05: Worsened overnight. Nephrology consulted and felt it was due to volume depletion based on labs and clinical picture, he has been placed on normal saline. We will repeat BMP this afternoon #NSTEMI, suspect type II Likely secondary to A. fib with RVR No chest pain #DVT ppx: Yumiko Harvey MD Charges/Coding Visit Charges Inpatient E&M: 14856 Subs Hosp L2
[2022-07-05] MEDS: 0.9% Normal Saline 1,000 ML 75 ML IV (10:53)
[2022-07-05] MEDS: Sodium Polystyrene Sulfonate 15 GM/60 ML UDC 30 GM PO (10:58)
[2022-07-05] MEDS: APIXABAN 5 MG TABLET PO ×2 (10:59→22:56)
[2022-07-05] MEDS: Amiodarone 200 MG Tablet 100 MG PO (10:59)
[2022-07-05] MEDS: Aspirin E.C. 81 MG Tablet PO (11:04)
[2022-07-05] MEDS: Carvedilol 6.25 MG Tablet PO (11:04)
[2022-07-05] MEDS: Polyethylene Glycol 3350 17 GM PACKET PO (11:05)
[2022-07-05] MEDS: Albuterol 2.5 MG/3 ML VIAL.NEB. INHALATION (11:13)
[2022-07-05 16:14] LABS: Anion Gap 2 (5-15); BUN 39 mg/dL (7-18); BUN/Creat Ratio 43.2 RATIO (10-20); Calcium,Total 8.9 mg/dL (8.5-10.1); Chloride 90 mmol/L (98-107); EST Glomerular Filtration Rate 85 mL/min (>60); Est Glom Filt Rate - Afr Amer 103 mL/min (>60); Glucose 104 mg/dL (74-106); Potassium 6.2 mmol/L (3.5-5.1); Sodium Level 127 mmol/L (136-145)
[2022-07-05] MEDS: Ceftriaxone 1 GM/50 ML BAG IV (21:57)
[2022-07-05] MEDS: Atorvastatin Calcium 40 MG Tablet PO (22:56)
[2022-07-05] MEDS: MELATONIN 3 MG TABLET PO (23:04)
[2022-07-05] MEDS: Carvedilol 12.5 MG Tablet PO (23:06)
[2022-07-06] VITALS (58 sets, daily range): BP systolic 69–139; BP diastolic 36–128; PULSE 55–143; RESP 12–37; TEMP 36.2–36.9; O2SAT 88–100
[2022-07-06 00:56] LABS: Bedside Glucose 128 mg/dL (74-106)
--- NOTE | 2022-07-06 02:38 | NURSING ---
Verbal order received to discontinue pt IV fluids d/t increased coarse breath sounds and +1 pitting pedal edema. Kavita CLAIRE
[2022-07-06 06:05] LABS: Absolute Lymphocyte Count 0.77 X10^3/uL (0.83-4.51); Absolute Neutrophil Count 8.7 X10^3/uL (2.0-7.7); Basophil# 0.02 X10^3/uL; Basophil% 0.2 % (0-1); Eosinophil# 0.01 X10^3/uL; Eosinophils% 0.1 % (0-5); Hematocrit 38.8 % (40-54); Hemoglobin 12.7 g/dL (13.0-16.5); Lymphocyte # 0.77 X10^3/ul (0.83-4.51); Lymphocyte % 7.3 % (19-41); Mean Corp Hgb Conc 32.7 g/dL (32-36); Mean Corpuscular Volume 91.7 fL (80-94); Mean Platelet Vol. 8.3 fl (6.2-12.0); Monocyte# 1.04 X10^3/uL; Monocyte% 9.8 % (0-10); NRBC Flagged by Analyzer 0 % (0-5); Neutrophil # 8.72 X10^3/uL (2.7-7.7); Neutrophil % 82.2 % (47-70); Platelet Count 449 K/mm3 (150-450); RBC Distribution Width CV 13.2 % (11.6-14.6); RBC Distribution Width SD 43.9 fl (35.1-43.9); Red Blood Count 4.23 M/mm3 (4.6-6.2); White Blood Count 10.6 K/mm3 (4.4-11.0)
[2022-07-06 06:49] LABS: Anion Gap 3 (5-15); BUN 45 mg/dL (7-18); BUN/Creat Ratio 42.1 RATIO (10-20); Calcium,Total 8.7 mg/dL (8.5-10.1); Chloride 92 mmol/L (98-107); Creatinine, Serum 1.07 mg/dL (0.70-1.30); EST Glomerular Filtration Rate 70 mL/min (>60); Est Glom Filt Rate - Afr Amer 85 mL/min (>60); Estimated Creatinine Clearance 51.39 ml/min; Glucose 97 mg/dL (74-106); Potassium 6.4 mmol/L (3.5-5.1); Sodium Level 129 mmol/L (136-145)
--- NOTE | 2022-07-06 10:23 | PN.RENAL_ITS ---
Subjective Subjective Following for hyponatremia Patient resting comfortably in bed. No overnight events. Objective Data Objective Data Vital Signs: Vital Signs Temp Pulse Resp BP Pulse Ox O2 Del Method O2 Flow Rate 98.4 F 55 L 25 H 120/61 100 Nasal Cannula 8 07/06/22 09:45 07/06/22 09:45 07/06/22 09:45 07/06/22 09:45 07/06/22 09:45 07/06/22 09:45 07/06/22 09:45 FiO2 30 07/06/22 06:35 Oxygen Flow Rate (L/min) 8 Oxygen Delivery Method Nasal Cannula Weight: 96.162 kg Body Mass Index (BMI) 31.3 Intake & Output: Intake and Output for Last 24 Hours 07/04/22 07/05/22 07/06/22 23:59 23:59 23:59 Intake Total 650 / 650 1205 / 1205 1255 / 1255 Output Total 1030 / 1030 800 / 800 255 / 255 Balance -380 / -380 405 / 405 1000 / 1000 Lab / Micro Data Result Diagrams: 07/07/22 03:00 07/07/22 03:00 Labs: Laboratory Results - last 24 hr 07/05/22 14:06: Sodium Cancelled, Potassium Cancelled, Chloride Cancelled, Carbon Dioxide Cancelled, Anion Gap Cancelled, BUN Cancelled, Creatinine Cance lled, Estim Creat Clear Calc Cancelled, Est GFR (MDRD) Af Amer Cancelled, Est GFR (MDRD) Non-Af Cancelled, BUN/Creatinine Ratio Cancelled, Glucose Cancelled, Calcium Cancelled 07/05/22 15:30: Sodium 127 L, Potassium 6.2 H*, Chloride 90 L, Carbon Dioxide 35.0 H, Anion Gap 2 L, BUN 39 H, Creatinine 0.90, Estim Creat Clear Calc 61.10, Est GFR (MDRD) Af Amer 103, Est GFR (MDRD) Non-Af 85, BUN/Creatinine Ratio 43.2 H, Glucose 104, Calcium 8.9 07/06/22 00:31: POC Glucose 128 H 07/06/22 05:40: WBC 10.6, RBC 4.23 L, Hgb 12.7 L, Hct 38.8 L, MCV 91.7, MCH 30.0, MCHC 32.7, RDW Std Deviation 43.9, RDW Coeff of [place] 13.2, Plt Count 449, MPV 8.3, Immature Gran % (Auto) 0.400, Neut % (Auto) 82.2 H, Lymph % (Auto) 7.3 L, [place] % (Auto) 9.8, Eos % (Auto) 0.1, Baso % (Auto) 0.2, Absolute Neuts (auto) 8.7 H, Absolute Lymphs (auto) 0.77 L, Nucleated RBC % 0 07/06/22 05:40: Sodium 129 L, Potassium 6.4 H*, Chloride 92 L, Carbon Dioxide 34.0 H, Anion Gap 3 L, BUN 45 H, Creatinine 1.07, Estim Creat Clear Calc 51.39, Est GFR (MDRD) Af Amer 85, Est GFR (MDRD) Non-Af 70, BUN/Creatinine Ratio 42.1 H , Glucose 97, Calcium 8.7 Micro: Microbiology 07/03/22 12:53 Urine, Clean Catch Urine Culture - Final Culture exhibits no growth. 07/03/22 12:53 Urine, Clean Catch Legionella Antigen - Final 07/03/22 12:45 Urine, Clean Catch Streptococcus pneumoniae Antigen (M - Final Rhythm Strip Rhythm Strip: A-fib Rate: 135 Ectopy: None Physical Exam Narrative Const: Alert to name. No apparent distress Cardio: S1, S2, RRR Respiratory: No audible wheezes, rhonchi or rales. Diminished breath sounds bases GI: Abdomen soft, nontender, positive bowel sounds, rounded Extremities: No pitting edema noted bilateral lower legs or feet. Trace edema a amelia Indwelling Vang with clear urine in bag Assessment & Plan Assessment/Plan (1) Hyponatremia: PLAN: - [place] to be secondary to decreased oral solute intake combined with sodium loss with diuretics. Sodium marilu 124 (on admission, 07/03.). Off Lasix. Sodium has increased to 129 today. Urine sodium was less than 5, Urine creatinine 131, Urine potassium 15. (2) Hyperkalemia: PLAN: - Potassium was as high as 7.5 on July 05. Today potassium is 6.4. Low potassium diet restrictions added today. To get dose of Kayexalate 30gm again today. Will order another dose 30gm to equal 60gm SPS today. Repeat K+ later today. No acute indication for TRANSFORMATION CONSULTANT at this time. -Normal Baseline creatinine ~0.7-1mg/dL. (3) Pneumonia: PLAN: - On IV antibiotics; ceftriaxone and azithromycin -Chest x-ray reviewed, moderate bilateral interstitial infiltrates, bilateral pleural effusions left greater than right. (4) Acute respiratory failure with hypoxia: PLAN: - Off BiPAP. On nasal cannula between 6 to 8 L. (5) Atrial fibrillation with rapid ventricular response: PLAN: - Amiodarone, carvedilol, Eliquis
[2022-07-06 11:20] LABS: Base Excess 6 mmol/L (-2 to +2); Blood Gas Specimen Type ART; O2 Delivery Device Cannula; PO2 183 mmHG (75-100); SITE R Radial; SO2 99 % (95-99); Total Carbon Dioxide 38 mmol/L; pH 7.17 (7.35-7.45)
--- NOTE | 2022-07-06 11:24 | PN.HOSP_ITS ---
Subjective Subjective Follow-up on respiratory failure/Hyperkalemia/NSTEMI: Patient was seen and examined. He remains very lethargic. He has been on continuous BiPAP/AVAPS. His heart rate is elevated because he was unable to be awake enough to take his oral medication especially Coreg. His potassium is elevated at 6.4. He is unable to take Kayexalate. Discussed in depth with the at the bedside; discussed goals of care - stated that patient has it in his will not to be on life support. She stated that he had a DNR. Later on, she stated that she would like to give him a chance will be intubated if needed and reassessing later on. Objective Data Objective Data Vital Signs: Vital Signs Temp Pulse Resp BP Pulse Ox O2 Del Method O2 Flow Rate 98.4 F 55 L 25 H 120/61 100 Nasal Cannula 8 07/06/22 09:45 07/06/22 09:45 07/06/22 09:45 07/06/22 09:45 07/06/22 09:45 07/06/22 09:45 07/06/22 09:45 FiO2 30 07/06/22 06:35 Oxygen Flow Rate (L/min) 8 Oxygen Delivery Method Nasal Cannula Weight: 96.162 kg Body Mass Index (BMI) 31.3 Intake & Output: Intake and Output for Last 24 Hours 07/04/22 07/05/22 07/06/22 23:59 23:59 23:59 Intake Total 650 / 650 1205 / 1205 1255 / 1255 Output Total 1030 / 1030 800 / 800 255 / 255 Balance -380 / -380 405 / 405 1000 / 1000 Lab / Micro Data Result Diagrams: 07/06/22 05:40 07/06/22 05:40 Labs: Laboratory Results - last 24 hr 07/05/22 14:06: Sodium Cancelled, Potassium Cancelled, Chloride Cancelled, Carbon Dioxide Cancelled, Anion Gap Cancelled, BUN Cancelled, Creatinine Cancelled, Estim Creat Clear Calc Cancelled, Est GFR (MDRD) Af Amer Cancelled, Est GFR (MDRD) Non-Af Cancelled, BUN/Creatinine Ratio Cancelled, Glucose Cancelled, Calcium Cancelled 07/05/22 15:30: Sodium 127 L, Potassium 6.2 H*, Chloride 90 L, Carbon Dioxide 35.0 H, Anion Gap 2 L, BUN 39 H, Creatinine 0.90, Estim Creat Clear Calc 61.10, Est GFR (MDRD) Af Amer 103, Est GFR (MDRD) Non-Af 85, BUN/Creatinine Ratio 43.2 H, Glucose 104, Calcium 8.9 07/06/22 00:31: POC Glucose 128 H 07/06/22 05:40: WBC 10.6, RBC 4.23 L, Hgb 12.7 L, Hct 38.8 L, MCV 91.7, MCH 30.0, MCHC 32.7, RDW Std Deviation 43.9, RDW Coeff of [place] 13.2, Plt Count 449, MPV 8.3, Immature Gran % (Auto) 0.400, Neut % (Auto) 82.2 H, Lymph % (Auto) 7.3 L, [place] % (Auto) 9.8, Eos % (Auto) 0.1, Baso % (Auto) 0.2, Absolute Neuts (auto) 8.7 H, Absolute Lymphs (auto) 0.77 L, Nucleated RBC % 0 07/06/22 05:40: Sodium 129 L, Potassium 6.4 H*, Chloride 92 L, Carbon Dioxide 34.0 H, Anion Gap 3 L, BUN 45 H, Creatinine 1.07, Estim Creat Clear Calc 51.39, Est GFR (MDRD) Af Amer 85, Est GFR (MDRD) Non-Af 70, BUN/Creatinine Ratio 42.1 H , Glucose 97, Calcium 8.7 Micro: Microbiology 07/03/22 12:53 Urine, Clean Catch Urine Culture - Final Culture exhibits no growth. 07/03/22 12:53 Urine, Clean Catch Legionella Antigen - Final 07/03/22 12:45 Urine, Clean Catch Streptococcus pneumoniae Antigen (M - Final ABG Data ABG results: ABG 07/06/22 11:13 Specimen Type ART Sample Site R Radial pH 7.17 L* Bicarbonate Actual 35.0 H Total CO2 38 Base Excess 6 H O2 Saturation 99 ABG pCO2 97.0 H* ABG pO2 183 H O2 Delivery Device Cannula Liter Flow 7.0 Crit Call To/Read Back Yes Blood Gas Notified Whom [facility] Rhythm Strip Rhythm Strip: A-fib Rate: 135 Ectopy: None Physical Exam Narrative Physical exam: General: Lethargic, awakes with sternal rub, goes back to sleep easily, on 8 L of nasal cannula oxygen HEENT: Atraumatic Oral: Moist Mucosa Neck: Supple Lungs: Diminished to auscultation, rhonchi Cardiovascular: HS I+II, regular, no murmurs Abdomen: Bowel Sounds Present, Soft, Non Tender Extremities: Bilateral leg edema +1 Skin: No rashes, No breakdown Neurological: Grossly intact Psych/Mental Status: Appropriate Assessment & Plan Assessment/Plan (1) Hyperkalemia: (2) Pneumonia: (3) Acute respiratory failure with hypoxia: PLAN: Plan 1. Hyperkalemia, potassium 6.4, patient is unable to take oral Kayexalate Will give lactulose suppository every 4h, IV calcium gluconate, D50, insulin, Lasix 40 mg IV x1 Repeat BMP in a couple of hours Nephrology following 2. Acute hypoxic respiratory failure secondary to acute left lower lobe pneumonia, worsening Patient has been on continuous BiPAP/AVAPS. ABG this morning showed worsening respiratory acidosis Continue on IV ceftriaxone, azithromycin, Duoneb breathing treatments prn Repeat Chest x-ray(07/06/22) showed decreasing bilateral pleural effusions, residual compression atelectasis of the left lower lobe We will consult pulmonary, transfer to ICU for closer monitoring in the light of recent full code per 3. Acute metabolic encephalopathy, multifactorial, with a huge component secondary to hypercapnic respiratory failure patient's ABG showed respiratory acidosis with hypercapnia Continue on AVAPS, musical string maker consult 4. A. fib with RVR, patient heart rate is elevated, unable to take oral medication We will put patient on metoprolol IV 2.5 mg every 6h, continue on therapeutic Lovenox 5. Hyponatremia, acute, slightly improved, Patient was on fluid restrictions, Nephrology following 6. Acute non-STEMI, likely type II, will continue to monitor Will continue on beta-gabrielle and therapeutic Lovenox 7. Heart failure with reduced EF, EF 25%, suspected LV apical thrombus on 06/16/22 Patient in acute exacerbation, off Lasix for now Will continue to trend 8. Acute urinary retention, status post Vang catheter placement 9. DVT prophylaxis?on therapeutic Lovenox I discussed and explained in details the various types of CODE STATUS-full code, DNR CCA, DNR CC. Initially, patient's stated that patient had stated that that he would not like be on life support. He has a DNR. After a repeat ABGs came back that showed severe acidosis, she changed her mind and stated that she would however like him to be intubated on a temporary basis. If he is not getting better, she was going to have him terminally extubated. Time spent discussing CODE STATUS 25 minutes Charges/Coding Visit Charges Inpatient E&M: 75717 Subs Hosp L3 Procedures Hospitalists Procedures: 34398 Advncd Care Plan 30 Min
[2022-07-06] MEDS: Furosemide 100 MG/10 ML Vial 60 MG IV (11:49)
--- NOTE | 2022-07-06 11:49 | NURSING ---
Report called to [facility]
--- NOTE | 2022-07-06 11:55 | RAD_ITS ---
EXAM: XR CHEST, 1 VIEW CLINICAL INDICATION: Worsening SOB TECHNIQUE: Frontal view of the chest. This report was created using [employer] report generation technology. COMPARISON: XR Chest dated 07/04/2022 FINDINGS: LUNGS AND PLEURAL SPACES: Decrease in size of the bilateral pleural effusions. Persistent compression atelectasis of the left lower lobe. No pneumothorax. HEART: Normal heart size. MEDIASTINUM: No mediastinal or hilar mass. BONES/JOINTS: No acute abnormality. SOFT TISSUES: Normal. TUBES, LINES AND DEVICES: Right internal jugular central venous catheter tip in the proximal superior vena cava. RAD/Chest 1 View (Portable) IMPRESSION: Decreasing bilateral pleural effusions. Residual compression atelectasis of the left lower lobe Electronically Signed: Sean Eric MD at 12:11 EST ,
[2022-07-06] MEDS: Insulin Lispro 100 UNIT/ML INSULN.PEN 10 UNIT SC (11:58)
[2022-07-06] MEDS: Dextrose 50%-Water 25 GM/50 ML DISP.SYRIN IV (11:59)
[2022-07-06 12:30] LABS: Allen Test Positive; Base Excess 5 mmol/L (-2 to +2); Bicarbonate 32.2 mmol/L (22-26); Blood Gas Specimen Type ART; FI02 40; Mode avaps; O2 Delivery Device BiPAP; PEEP 12; PO2 92 mmHG (75-100); RR 12; SITE R Radial; SO2 95 % (95-99); Total Carbon Dioxide 34 mmol/L; Vt 550; pCO2 73.8 mmHg (35-45); pH 7.25 (7.35-7.45)
[2022-07-06] MEDS: Etomidate 20 MG/10 ML Vial IV (13:06)
--- NOTE | 2022-07-06 13:15 | RAD_ITS ---
EXAM: XR CHEST, 1 VIEW CLINICAL INDICATION: ETT placement TECHNIQUE: Frontal view of the chest. This report was created using [employer] report generation technology. COMPARISON: XR Chest dated 07/06/2022 FINDINGS: LUNGS AND PLEURAL SPACES: Persistent small bilateral pleural effusions greater in size on the left than right. Persistent consolidation/atelectasis of the left lower lobe. No pneumothorax. HEART: Normal heart size. MEDIASTINUM: No mediastinal or hilar mass. BONES/JOINTS: No acute abnormality. SOFT TISSUES: Normal. TUBES, LINES AND DEVICES: The endotracheal tube (ETT) is in satisfactory position with tip 5.6 cm above the laya. Right internal jugular central venous catheter tip in the mid superior vena cava. Enteric tube tip in the stomach. RAD/Chest 1 View (Portable) IMPRESSION: Satisfactory intubation Electronically Signed: Sean Eric MD at 14:03 EST ,
[2022-07-06 13:51] LABS: Allen Test Positive; Base Excess 4 mmol/L (-2 to +2); Bicarbonate 30.6 mmol/L (22-26); Blood Gas Specimen Type ART; Mode AC; O2 Delivery Device Adult Vent; PEEP 5; PO2 236 mmHG (75-100); RR 14; SITE R Radial; SO2 100 % (95-99); Total Carbon Dioxide 33 mmol/L; Vt 450; pCO2 60.6 mmHg (35-45); pH 7.31 (7.35-7.45)
[2022-07-06 13:55] LABS: CPK Total, Creatine Kinase 20 U/L (39-308); Triglycerides 97 mg/dL
--- NOTE | 2022-07-06 14:00 | CON.PCM.CC_ITS ---
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 Continue current vent settings. Wean FiO2 as tolerated 2. Broaden antibiotics given worsening in clinical status 3. Hyperkalemia therapy as ordered 4. Initiate pressors if necessary 5. Consider cardiology consult for A. fib with RVR 6. Continue fluid restriction of possible 7. Continue anticoagulation given suspected left ventricular apical thrombus IMPRESSIONS: 1. Acute combined respiratory failure secondary to possible pneumonia Patient with a metabolic and respiratory component of acidosis with poor compensation. Patient also with findings consistent with volume overloaded, pro bably from CHF leading to increased AA gradient. We will continue with current vent settings as acidosis is improved. Wean FiO2 as tolerated. 2. Hypotension Unclear etiology. Patient did have significant hyperkalemia and hyponatremia. Patient also with significant acidosis. Some concern for sepsis, so antibiotics will be broadened. Patient is showing endorgan damage with respiratory failure and encephalopathy. Will initiate pressors if necessary. If pressors are required, will need to broaden antibiotic spectrum pending repeat cultures. 3. Hyponatremia/hyperkalemia Clinical suspicion for hyperkalemia secondary to a component of acidosis. Perfusion is somewhat limited secondary to A. fib with RVR. Unclear if patient's hyponatremia represents a paraneoplastic syndrome given melanoma. Patient may have an element of RTA also. 4. Acute on chronic systolic CHF with suspected left ventricular thrombus Patient appears to be in an acute exacerbation secondary to A. fib with RVR. Patient needs to be on anticoagulation given left ventricular apical thrombus. Clinical suspicion for metabolic encephalopathy, but cannot exclude migration of clot. Patient is not showing any focal neurologic signs at this time, but may need a CT of the head in the future if not improving after control of acidosis and hypercarbia. 5. Acute urinary retention/metastatic melanoma/advanced age/obesity/BPH CODE STATUS confirmed with patient's . Patient is a full code despite difficulties with previous chemotherapy. Patient has a Vang in place, but will likely need a voiding trial prior to discharge TIME: 45 minutes critical care time spent addressing patient's acute respiratory failure, hypotension, CHF, urinary retention, review of all data and collaboration with care team HPI Consult Data Date of Consult: 07/06/22 HPI Narrative Reason for Consultation: Respiratory failure HPI Narrative: MARYAN OLIVA is an 86 M, with past medical history listed below, who presented to [facility] on 07/03/2022 secondary to progressive shortness of breath and a recent diagnosis of pneumonia. Patient was started on Augmentin, but continued to have worsening shortness of breath and palpitations. Patient denied any obvious chest pain or hemoptysis. Patient does carry a past medical history of ischemic cardiomyopathy status post [place] and atrial fibrillation. Patient is on Eliquis at baseline, but has not required supplemental oxygen. In ER, patient was afebrile, but tachycardic at 133 bpm. Patient was requiring 6 L nasal cannula to maintain saturations, but was normotensive at that time. Laboratory work-up showed a white blood cell count of 14.5, hemoglobin of 14.6 and platelets of 549. Patient was noted to have a sodium of 124, bicarbonate of 33 and a chloride of 88. Creatinine was within normal limits, but troponin was elevated at 397. Chest x-ray showed a left lower lobe pneumonia with associated pleural effusion. EKG confirmed A. fib with RVR with a rate of 135 bpm. Patient was given IV Cardizem with good response, but given continued hypoxia was admitted to the floor for further evaluation. Reportedly, patient has been essentially BiPAP dependent while on the floor. Upon evaluation by the hospitalist this morning, there was significant concerns for persistent acidosis despite BiPAP. Patient reportedly had been off of BiPAP for approximately 6 hours and was much less responsive. An ABG was obtained, patient was placed on AVAPS and transferred to the intensive care unit for further evaluation. Patient was noted to be significantly hyperkalemic with a potassium of 6.4. An extensive conversation with the at the bedside per the hospitalist revealed full CODE STATUS. On my evaluation in the intensive care unit, patient was noted to have perioral and nasal cyanosis. Patient was relatively unresponsive except for to deep stimuli. Patient was having difficulty in getting volumes with the BiPAP. Shortly after evaluation, it was determined the patient would likely need to be intubated to protect his airway and control respirations. Patient was intubated by myself (see below). Patient did have some hypotension following the procedure, so pressors were initiated. Given patient required pressors, antibiotics were also broadened. Unable to obtain a review of systems secondary to encephalopathy. 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 Myasthenia gravis Pneumonia Recurrent UTI Restless legs Takotsubo cardiomyopathy Wears dentures Wears glasses Wears hearing aid Home Medications apixaban 5 mg tablet (Eliquis) 5 mg PO BID 30 days #60 tabs 06/19/22 [Rx Last Taken Unknown] aspirin 81 mg tablet,delayed release 81 mg PO BREAKFAST 30 days #30 tabs 06/19/22 [Rx Last Taken Unknown] carvedilol 3.125 mg tablet 3.125 mg PO BIDCM 30 days #60 tabs 06/19/22 [Rx Last Taken Unknown] furosemide 20 mg tablet 20 mg PO DAILY 30 days #30 tabs 06/19/22 [Rx Last Taken Unknown] amiodarone 200 mg tablet 100 mg PO DAILY 30 days #15 tabs 06/25/22 [Rx Last Taken Unknown] atorvastatin 80 mg tablet 40 mg PO QHS 30 days #30 tabs 06/25/22 [Rx Last Taken Unknown] losartan 25 mg tablet 25 mg PO DAILY #30 tabs 07/01/22 [Rx Last Taken Unknown] tamsulosin 0.4 mg capsule 0.4 mg PO DAILY #90 caps 07/02/22 [Rx Last Taken Unknown] amoxicillin 875 mg-potassium clavulanate 125 mg tablet 1 tab PO BID antibiotic 07/03/22 [History Last Taken Unknown] Allergy/AdvReac Type Severity Reaction Status Date / Time pembrolizumab [From [facility]] AdvReac Severe Myasthenia Verified 06/25/22 10:26 gravis lisinopril AdvReac Intermediate Dry Verified 07/01/22 17:25 persistent cough Family History Mother Colon cancer Brother Cancer prostate Father Heart disease Surgical History History of cataract extraction History of excision of mass Social History Smoking Status: Former smoker Tobacco: How many years used: 32 Electronic Cigarette Use: not used second hand exposure: No alcohol intake: current alcohol intake frequency: 0-2 drinks per day details: socially substance use type: does not use caffeine: Yes Type: coffee Number of servings: 2 destini/faith: Baptism seatbelt use: always do you feel safe at home: Yes ROS Review of Systems ROS Unobtainable: due to endotracheal tube and due to mental status Physical Exam Narrative Intubation Indication: Acute combined respiratory failure Consent was obtained from: Emergent The patient was placed in the appropriate sniffing position. Preoxygenated sed ation via BiPAP was provided for a minimum of 3 minutes. The patient had continuous cardiac as well as pulse oximetry monitoring during the procedure. Attempted intubation without sedation was unsuccessful. Procedure sedation was provided by the administration of 20 mg of etomidate. Video laryngoscopy was then performed using a number 4 blade, which revealed a grade 2 view. A 8 mm endotracheal tube was visualized advancing between the cords to the level of 24 cm at the lip. The stylette was then removed and discarded. Tube placement was confirmed by fogging in the tube along with equal and bilateral breath sounds. Colorimetric change was visualized on the CO2 meter. The cuff was then inflated and the tube secured using a commercially available device. A good pulse oximetry waveform was seen on the monitor throughout the procedure. A portable chest x-ray has been ordered to confirm appropriate placement. The patient tolerated the procedure well. Const General Appearance: patient mechanically ventilated Orientation / Consciousness: obtunded Exam Limitations: altered mental status Nutritional Appearance: obese centrally obese HEENT normocephalic HEENT Narrative: Initial cyanosis of the nose and perioral areas. Improved following intubation Mouth: endotracheal tube in place and OG tube in place Teeth and Gingiva: poor dentition Eyes PERRL and EOMs intact bilaterally Eyes Narrative: Scleral injection noted Neck full ROM and supple Chest inspection of chest normal Resp Resp Narrative: Patient achieving tidal volumes of approximately 250 cc on AVAPS Auscultation: diminished lung sounds; Negative for rales, rhonchi or wheezes Cardio S1 normal heart sound, S2 normal heart sound, no murmurs, no rub and no gallops Rate: tachycardic Rhythm: abnormal rhythm irregularly irregular GI normal to inspection, nondistended, normoactive bowel sounds and soft to palpation Extremity General Extremity: edema; Negative for clubbing Skin Skin Narrative: Initial cyanosis improved following intubation General Skin Exam: venous stasis Neuro Sensorium / Orientation: sedated on vent Psych Mood & Affect: flat affect Lab / Micro Data Attestation: I reviewed the patient's lab results. Result Diagrams: 07/06/22 05:40 07/06/22 05:40 Labs: Laboratory Results - last 24 hr 07/05/22 14:06: Sodium Cancelled, Potassium Cancelled, Chloride Cancelled, Carbon Dioxide Cancelled, Anion Gap Cancelled, BUN Cancelled, Creatinine Cancelled, Estim Creat Clear Calc Cancelled, Est GFR (MDRD) Af Amer Cancelled, Est GFR (MDRD) Non-Af Cancelled, BUN/Creatinine Ratio Cancelled, Glucose Cancelled, Calcium Cancelled 07/05/22 15:30: Sodium 127 L, Potassium 6.2 H*, Chloride 90 L, Carbon Dioxide 35.0 H, Anion Gap 2 L, BUN 39 H, Creatinine 0.90, Estim Creat Clear Calc 61.10, Est GFR (MDRD) Af Amer 103, Est GFR (MDRD) Non-Af 85, BUN/Creatinine Ratio 43.2 H, Glucose 104, Calcium 8.9 07/06/22 00:31: POC Glucose 128 H 07/06/22 05:40: WBC 10.6, RBC 4.23 L, Hgb 12.7 L, Hct 38.8 L, MCV 91.7, MCH 30.0, MCHC 32.7, RDW Std Deviation 43.9, RDW Coeff of Brent 13.2, Plt Count 449, MPV 8.3, Immature Gran % (Auto) 0.400, Neut % (Auto) 82.2 H, Lymph % (Auto) 7.3 L, [place] % (Auto) 9.8, Eos % (Auto) 0.1, Baso % (Auto) 0.2, Absolute Neuts (auto) 8.7 H, Absolute Lymphs (auto) 0.77 L, Nucleated RBC % 0 07/06/22 05:40: Sodium 129 L, Potassium 6.4 H*, Chloride 92 L, Carbon Dioxide 34.0 H, Anion Gap 3 L, BUN 45 H, Creatinine 1.07, Estim Creat Clear Calc 51.39, Est GFR (MDRD) Af Amer 85, Est GFR (MDRD) Non-Af 70, BUN/Creatinine Ratio 42.1 H , Glucose 97, Calcium 8.7 07/06/22 05:40: Total Creatine Kinase 20 L, Triglycerides 97 Micro: Microbiology 07/03/22 12:53 Urine, Clean Catch Urine Culture - Final Culture exhibits no growth. 07/03/22 12:53 Urine, Clean Catch Legionella Antigen - Final ABG Data ABG results: ABG 07/06/22 07/06/22 07/06/22 11:13 12:27 13:44 Specimen Type ART ART ART Sample Site R Radial R Radial R Radial pH 7.17 L* 7.25 L 7.31 L Bicarbonate Actual 35.0 H 32.2 H 30.6 H Total CO2 38 34 33 Base Excess 6 H 5 H 4 H O2 Saturation 99 95 100 H O2 % 40 ABG pCO2 97.0 H* 73.8 H* 60.6 H ABG pO2 183 H 92 236 H Constantino Test Positive Positive Respiration Rate 12 14 O2 Delivery Device Cannula BiPAP Adult Vent Liter Flow 7.0 Vent Mode avaps AC Tidal Volume 550 450 POC PEEP 12 5 Crit Call To/Read Back Yes Yes Blood Gas Notified Whom ZULEMA moseleyur Attestation: I personally reviewed and interpreted this ABG as follows: (Acute on chronic mixed failure with improvement following intubation) Rhythm Strip Rhythm Strip: A-fib Rate: 135 Ectopy: None Radiology Impression Chest X-Ray 07/06/22 11:55 IMPRESSION: Decreasing bilateral pleural effusions. Residual compression atelectasis of the left lower lobe Electronically Signed: Sean Eric MD at 12:11 EST , Charges/Coding Procedures Hospitalists Procedures: 12024 Critial Care 1st Hr
[2022-07-06] MEDS: Amiodarone 200 MG Tablet 100 MG PO (14:13)
[2022-07-06] MEDS: Sodium Polystyrene Sulfonate 15 GM/60 ML UDC 30 GM GT (14:14)
[2022-07-06] MEDS: Ipratropium/Albuterol Sulfate 3 ML AMPUL.NEB INHALATION ×2 (15:55→18:57)
[2022-07-06] MEDS: Amiodarone 360 MG in Dextrose 5% Viaflo Bag 192.8 ML 33.3 MG CONT INF (15:55)
[2022-07-06 18:43] LABS: Anion Gap 8 (5-15); BUN 57 mg/dL (7-18); BUN/Creat Ratio 34.8 RATIO (10-20); Calcium,Total 8.4 mg/dL (8.5-10.1); Chloride 91 mmol/L (98-107); Creatinine, Serum 1.64 mg/dL (0.70-1.30); EST Glomerular Filtration Rate 43 mL/min (>60); Est Glom Filt Rate - Afr Amer 52 mL/min (>60); Estimated Creatinine Clearance 33.53 ml/min; Glucose 117 mg/dL (74-106); Potassium 5.1 mmol/L (3.5-5.1); Sodium Level 130 mmol/L (136-145)
[2022-07-06] MEDS: Digoxin 250 MCG/ML Ampul 320 MCG IV (21:02)
[2022-07-06] MEDS: Ceftriaxone 1 GM/50 ML BAG IV (21:03)
[2022-07-06] MEDS: 0.9% Saline Lock 10 ML Syringe IV (21:05)
[2022-07-06] MEDS: Propofol 10MG/Ml 1,000 MG/100 ML Bottle 5.8 MG CONT INF (21:05)
[2022-07-06] MEDS: Chlorhexidine 15 ML PO (21:05)
[2022-07-06] MEDS: Enoxaparin 100 MG/ML Syringe SC (21:06)
[2022-07-06] MEDS: Atorvastatin Calcium 40 MG Tablet GT (21:12)
[2022-07-06] MEDS: Amiodarone 360 MG in Dextrose 5% Viaflo Bag 192.8 ML 16.7 MG CONT INF (21:56)
[2022-07-07] VITALS (64 sets, daily range): BP systolic 88–146; BP diastolic 49–81; PULSE 49–128; RESP 10–16; TEMP 36.7–37.2; O2SAT 93–99
[2022-07-07] MEDS: Metoprolol Tartrate 5 MG/5 ML Vial 2.5 MG IV ×3 (00:03→11:42)
--- NOTE | 2022-07-07 00:38 | EKG12_ITS ---
Test Reason : RHYTHM CHANGE Blood Pressure : / mmHG Vent. Rate : 054 BPM Atrial Rate : 052 BPM P-R Int : 000 ms QRS Dur : 082 ms QT Int : 494 ms P-R-T Axes : 171 086 211 degrees QTc Int : 468 ms Junctional rhythm Septal infarct (cited on or before 16-JUN-2022) ST & T wave abnormality, consider inferior ischemia ST & T wave abnormality, consider anterolateral ischemia Abnormal ECG When compared with ECG of 05-JUL-2022 07:25, Current undetermined rhythm precludes rhythm comparison, needs review Serial changes of evolving Septal infarct Present Confirmed by AUNDREA SOLIS, ANN ([id number]), mapping editor CATHERINE HOBBS ([id number]) on 07/10/2022 11:15:01 AM Referred By: Deon Albarran Confirmed By:ANN GUILLAUME MD
[2022-07-07] MEDS: Ipratropium/Albuterol Sulfate 3 ML AMPUL.NEB INHALATION ×5 (03:03→18:56)
[2022-07-07 03:23] LABS: Absolute Lymphocyte Count 1.42 X10^3/uL (0.83-4.51); Absolute Neutrophil Count 11.2 X10^3/uL (2.0-7.7); Basophil# 0.05 X10^3/uL; Basophil% 0.3 % (0-1); Eosinophil# 0.03 X10^3/uL; Eosinophils% 0.2 % (0-5); Hematocrit 35.6 % (40-54); Hemoglobin 12.1 g/dL (13.0-16.5); Lymphocyte # 1.42 X10^3/ul (0.83-4.51); Lymphocyte % 9.9 % (19-41); Mean Corpuscular Hgb 29.7 pg (27.0-32.0); Mean Corpuscular Volume 87.5 fL (80-94); Mean Platelet Vol. 8.5 fl (6.2-12.0); Monocyte# 1.64 X10^3/uL; Monocyte% 11.4 % (0-10); NRBC Flagged by Analyzer 0.2 % (0-5); Neutrophil % 77.7 % (47-70); POSITIVE DIFFERENTIAL YES; Platelet Count 530 K/mm3 (150-450); RBC Distribution Width CV 13.3 % (11.6-14.6); RBC Distribution Width SD 41.7 fl (35.1-43.9); Red Blood Count 4.07 M/mm3 (4.6-6.2); White Blood Count 14.4 K/mm3 (4.4-11.0)
[2022-07-07 03:37] LABS: Differential Indicated SCAN CRITERIA MET
[2022-07-07 04:12] LABS: Differential Comment SCANNED
[2022-07-07 04:13] LABS: Platelet Estimate MOD INC (ADEQ)
[2022-07-07 04:35] LABS: ALB/GLOB Ratio 0.7 RATIO (0.9-2.4); AST(SGOT) 17 U/L (15-37); Alanine Aminotransfer ALT/SGPT 18 U/L (16-61); Albumin, Serum 2.2 g/dL (3.2-5.0); Alkaline Phosphatase 67 U/L (45-117); Anion Gap 8 (5-15); BUN 59 mg/dL (7-18); BUN/Creat Ratio 36.4 RATIO (10-20); Calcium,Total 8.3 mg/dL (8.5-10.1); Chloride 92 mmol/L (98-107); Creatinine, Serum 1.62 mg/dL (0.70-1.30); EST Glomerular Filtration Rate 43 mL/min (>60); Est Glom Filt Rate - Afr Amer 52 mL/min (>60); Estimated Creatinine Clearance 33.94 ml/min; Globulin 3.1 g/dL (2.2-4.2); Glucose 122 mg/dL (74-106); Potassium 4.9 mmol/L (3.5-5.1); Protein, Total 5.3 g/dL (6.4-8.2); Sodium Level 130 mmol/L (136-145)
[2022-07-07] MEDS: TITRATION PARAMETER CHANGE 1 EACH IV (05:34)
[2022-07-07] MEDS: 0.9% Saline Lock 10 ML Syringe IV ×3 (05:34→11:43)
[2022-07-07] MEDS: CHLORHEXIDINE GLUC 2% CLOTH 1 EACH TOWELETTE TOPICAL (06:26)
--- NOTE | 2022-07-07 07:25 | PN.CC_ITS ---
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 Continue current vent settings. Wean FiO2 as tolerated 2. Broaden antibiotics given worsening in clinical status 3. Transition to p.o. amiodarone 4. Wean pressors as able to maintain MAP greater than 65 5. Spontaneous breathing and awakening trials per protocol 6. Continue fluid restriction of possible 7. Continue anticoagulation given suspected left ventricular apical thrombus IMPRESSIONS: 1. Acute combined respiratory failure secondary to possible pneumonia Patient with a metabolic and respiratory component of acidosis with poor compensation. Patient also with findings consistent with volume overloaded, probably from CHF leading to increased AA gradient. We will continue with current vent settings as acidosis is improved. Wean FiO2 as tolerated. Patient appears to be improving at this time. 2. Sepsis Unclear etiology. Patient did have significant hyperkalemia and hyponatremia. Patient also with significant acidosis. Some concern for sepsis, so antibiotics will be broadened. Patient is showing endorgan damage with respiratory failure, acute kidney injury and encephalopathy. Wean pressors as tolerated we will obtain blood cultures. Sputum cultures were obtained with intubation yesterday. 3. Hyponatremia/hyperkalemia Improved. Clinical suspicion for hyperkalemia secondary to a component of acidosis. Unclear if patient's hyponatremia represents a paraneoplastic syndrome given melanoma. Patient may have an element of RTA also. 4. Acute on chronic systolic CHF with suspected left ventricular thrombus Patient initially appeared to be in an acute exacerbation secondary to A. fib with RVR. Patient needs to be on anticoagulation given left ventricular apical thrombus. Patient currently in sinus rhythm. We will transition back to amiodarone p.o. Clinical suspicion for metabolic encephalopathy, but cannot exclude migration of clot. Patient is not showing any focal neurologic signs at this time, but may need a CT of the head in the future if not improving after control of acidosis and hypercarbia. 5. Acute urinary retention/metastatic melanoma/advanced age/obesity/BPH CODE STATUS confirmed with patient's . Patient is a full code despite difficulties with previous chemotherapy. Patient has a Vang in place, but will likely need a voiding trial prior to discharge TIME: 34 minutes critical care time spent addressing patient's acute respiratory failure, hypotension, CHF, urinary retention, review of all data and collaboration with care team Subjective Subjective Patient did okay overnight. Oxygen requirements have improved. Patient did transition to normal sinus rhythm overnight with a junctional rhythm. Amiodarone drip was held. Patient does remain on Levophed to maintain blood pressures. No active bleeding has been reported. Patient reportedly has been more interactive with staff this morning during the spontaneous awakening trial Objective Data Objective Data Vital Signs: Vital Signs Temp Pulse Resp BP Pulse Ox O2 Del Method O2 Flow Rate 36.7 C 72 14 129/60 H 99 Mechanical Ventilator 8 07/07/22 04:00 07/07/22 07:00 07/07/22 07:00 07/07/22 07:00 07/07/22 07:00 07/07/22 07:00 07/06/22 09:45 FiO2 30 07/07/22 07:00 Oxygen Flow Rate (L/min) 8 Oxygen Delivery Method Mechanical Ventilator Weight: 100.4 kg Body Mass Index (BMI) 31.3 Intake & Output: Intake and Output for Last 24 Hours 07/05/22 07/06/22 07/07/22 23:59 23:59 23:59 Intake Total 1205 / 1205 2364.28 / 2406.68 240.84 / 240.84 Output Total 800 / 800 545 / 545 150 / 150 Balance 405 / 405 1819.28 / 1861.68 90.84 / 90.84 Lab / Micro Data Attestation: I reviewed the patient's lab results. Result Diagrams: 07/07/22 03:00 07/07/22 03:00 Labs: Laboratory Results - last 24 hr 07/06/22 05:40: Total Creatine Kinase 20 L, Triglycerides 97 07/06/22 17:10: Sodium Cancelled, Potassium Cancelled, Chloride Cancelled, Carbon Dioxide Cancelled, Anion Gap Cancelled, BUN Cancelled, Creatinine Cancelled, Estim Creat Clear Calc Cancelled, Est GFR (MDRD) Af Amer Cancelled, Est GFR (MDRD) Non-Af Cancelled, BUN/Creatinine Ratio Cancelled, Glucose Cancelled, Calcium Cancelled 07/06/22 18:00: Sodium 130 L, Potassium 5.1, Chloride 91 L, Carbon Dioxide 31.0, Anion Gap 8, BUN 57 H, Creatinine 1.64 H, Estim Creat Clear Calc 33.53, Est GFR (MDRD) Af Amer 52 L, Est GFR (MDRD) Non-Af 43 L, BUN/Creatinine Ratio 34.8 H, Glucose 117 H, Calcium 8.4 L 07/07/22 03:00: WBC 14.4 H, RBC 4.07 L, Hgb 12.1 L, Hct 35.6 L, MCV 87.5, MCH 29.7, MCHC 34.0, RDW Std Deviation 41.7, RDW Coeff of Brent 13.3, Plt Count 530 H, MPV 8.5, Immature Gran % (Auto) 0.500, Neut % (Auto) 77.7 H, Lymph % (Auto) 9.9 L, [place] % (Auto) 11.4 H, Eos % (Auto) 0.2, Baso % (Auto) 0.3, Absolute Neuts ( auto) 11.2 H, Absolute Lymphs (auto) 1.42, Nucleated RBC % 0.2, Differential Comment SCANNED, Diff Path Review December, Platelet Estimate MOD INC 07/07/22 03:00: Sodium 130 L, Potassium 4.9, Chloride 92 L, Carbon Dioxide 30.0, Anion Gap 8, BUN 59 H, Creatinine 1.62 H, Estim Creat Clear Calc 33.94, Est GFR (MDRD) Af Amer 52 L, Est GFR (MDRD) Non-Af 43 L, BUN/Creatinine Ratio 36.4 H, Glucose 122 H, Calcium 8.3 L, Total Bilirubin 1.10 H, AST 17, ALT 18, Alkaline Phosphatase 67, Total Protein 5.3 L, Albumin 2.2 L, Globulin 3.1, Albumin/Globulin Ratio 0.7 L Micro: Microbiology 07/03/22 12:53 Urine, Clean Catch Urine Culture - Final Culture exhibits no growth. 07/03/22 12:53 Urine, Clean Catch Legionella Antigen - Final 07/03/22 12:45 Urine, Clean Catch Streptococcus pneumoniae Antigen (M - Final ABG Data ABG results: ABG 07/06/22 07/06/22 07/06/22 11:13 12:27 13:44 Specimen Type ART ART ART Sample Site R Radial R Radial R Radial pH 7.17 L* 7.25 L 7.31 L Bicarbonate Actual 35.0 H 32.2 H 30.6 H Total CO2 38 34 33 Base Excess 6 H 5 H 4 H O2 Saturation 99 95 100 H O2 % 40 ABG pCO2 97.0 H* 73.8 H* 60.6 H ABG pO2 183 H 92 236 H Constantino Test Positive Positive Respiration Rate 12 14 O2 Delivery Device Cannula BiPAP Adult Vent Liter Flow 7.0 Vent Mode avaps AC Tidal Volume 550 450 POC PEEP 12 5 Crit Call To/Read Back Yes Yes Blood Gas Notified Whom ZULEMA sr Radiography Diagnostic Testing: Radiology Impression Chest X-Ray 07/06/22 11:55 IMPRESSION: Decreasing bilateral pleural effusions. Residual compression atelectasis of the left lower lobe Electronically Signed: Sean Eric MD at 12:11 EST , Chest X-Ray 07/06/22 13:15 IMPRESSION: Satisfactory intubation Electronically Signed: Sean Eric MD at 14:03 EST , Rhythm Strip Rhythm Strip: Sinus Rhythm Rate: 79 Ectopy: None Physical Exam Const Constitutional Narrative: Does follow some simple commands General Appearance: patient mechanically ventilated Exam Limitations: altered mental status Nutritional Appearance: obese centrally obese HEENT normocephalic Eyes PERRL and EOMs intact bilaterally Eyes Narrative: Scleral injection noted Neck full ROM and supple Chest inspection of chest normal Resp Auscultation: diminished lung sounds; Negative for rales, rhonchi or wheezes Cardio regular rate, regular rhythm, S1 normal heart sound, S2 normal heart sound, no murmurs, no rub and no gallops GI normal to inspection, nondistended, normoactive bowel sounds and soft to palpation Extremity General Extremity: edema; Negative for clubbing Skin General Skin Exam: venous stasis Neuro Sensorium / Orientation: sedated on vent Psych Mood & Affect: flat affect Charges/Coding Procedures Hospitalists Procedures: 97008 Critial Care 1st Hr
[2022-07-07] MEDS: Chlorhexidine 15 ML PO ×2 (10:05→22:02)
[2022-07-07] MEDS: Amiodarone 200 MG Tablet 100 MG GT (10:05)
[2022-07-07] MEDS: Famotidine 20 MG Tablet GT (10:05)
[2022-07-07] MEDS: Enoxaparin 100 MG/ML Syringe SC ×2 (10:06→22:02)
[2022-07-07] MEDS: Aspirin 81 MG TAB.CHEW GT (10:06)
[2022-07-07 10:25] LABS: Allen Test Positive; Base Excess 7 mmol/L (-2 to +2); Bicarbonate 29.3 mmol/L (22-26); Blood Gas Specimen Type ART; FI02 21; Mode AC; O2 Delivery Device Adult Vent; PEEP 5; PO2 61 mmHG (75-100); RR 14; SITE R Radial; SO2 94 % (95-99); Total Carbon Dioxide 30 mmol/L; Vt 450; pCO2 32.5 mmHg (35-45); pH 7.56 (7.35-7.45)
[2022-07-07] MEDS: Vital AF 1.2 Cal Liquid 1,000 ML 20 ML GT (12:38)
--- NOTE | 2022-07-07 12:51 | PN.RENAL_ITS ---
Documented by User: JUAN A Carter 07/07/22 13:07 Subjective Subjective following for BOB/hyponatremia/hyperkalemia transferred to ICU 07/06. On vent. Objective Data Objective Data Vital Signs: Vital Signs Temp Pulse Resp BP Pulse Ox O2 Del Method O2 Flow Rate 99 F 76 10 L 105/56 L 94 Mechanical Ventilator 8 07/07/22 12:00 07/07/22 12:00 07/07/22 12:00 07/07/22 12:00 07/07/22 12:00 07/07/22 12:00 07/06/22 09:45 FiO2 25 07/07/22 12:00 Oxygen Flow Rate (L/min) 8 Oxygen Delivery Method Mechanical Ventilator Weight: 100.4 kg Body Mass Index (BMI) 31.3 Intake & Output: Intake and Output for Last 24 Hours 07/05/22 07/06/22 07/07/22 23:59 23:59 23:59 Intake Total 1205 / 1205 2364.28 / 2406.68 292.64 / 292.64 Output Total 800 / 800 545 / 545 325 / 325 Balance 405 / 405 1819.28 / 1861.68 -32.36 / -32.36 Lab / Micro Data Result Diagrams: 07/07/22 03:00 07/07/22 03:00 Labs: Laboratory Results - last 24 hr 07/06/22 05:40: Total Creatine Kinase 20 L, Triglycerides 97 07/06/22 17:10: Sodium Cancelled, Potassium Cancelled, Chloride Cancelled, Carbon Dioxide Cancelled, Anion Gap Cancelled, BUN Cancelled, Creatinine Cancelled, Estim Creat Clear Calc Cancelled, Est GFR (MDRD) Af Amer Cancelled, Est GFR (MDRD) Non-Af Cancelled, BUN/Creatinine Ratio Cancelled, Glucose Cancelled, Calcium Cancelled 07/06/22 18:00: Sodium 130 L, Potassium 5.1, Chloride 91 L, Carbon Dioxide 31.0, Anion Gap 8, BUN 57 H, Creatinine 1.64 H, Estim Creat Clear Calc 33.53, Est GFR (MDRD) Af Amer 52 L, Est GFR (MDRD) Non-Af 43 L, BUN/Creatinine Ratio 34.8 H, Glucose 117 H, Calcium 8.4 L 07/07/22 03:00: WBC 14.4 H, RBC 4.07 L, Hgb 12.1 L, Hct 35.6 L, MCV 87.5, MCH 29.7, MCHC 34.0, RDW Std Deviation 41.7, RDW Coeff of Brent 13.3, Plt Count 530 H, MPV 8.5, Immature Gran % (Auto) 0.500, Neut % (Auto) 77.7 H, Lymph % (Auto) 9.9 L, [place] % (Auto) 11.4 H, Eos % (Auto) 0.2, Baso % (Auto) 0.3, Absolute Neuts (auto) 11.2 H, Absolute Lymphs (auto) 1.42, Nucleated RBC % 0.2, Differential Comment SCANNED, Diff Path Review December, Platelet Estimate MOD INC 07/07/22 03:00: Sodium 130 L, Potassium 4.9, Chloride 92 L, Carbon Dioxide 30.0, Anion Gap 8, BUN 59 H, Creatinine 1.62 H, Estim Creat Clear Calc 33.94, Est GFR (MDRD) Af Amer 52 L, Est GFR (MDRD) Non-Af 43 L, BUN/Creatinine Ratio 36.4 H, Glucose 122 H, Calcium 8.3 L, Total Bilirubin 1.10 H, AST 17, ALT 18, Alkaline Phosphatase 67, Total Protein 5.3 L, Albumin 2.2 L, Globulin 3.1, Albumin/Globulin Ratio 0.7 L Micro: Microbiology 07/06/22 15:57 Sputum, Induced/Lukens Respiratory Culture - Preliminary GNR Poss Pseudomonas sp 07/03/22 12:53 Urine, Clean Catch Urine Culture - Final Culture exhibits no growth. 07/03/22 12:53 Urine, Clean Catch Legionella Antigen - Final 07/03/22 12:45 Urine, Clean Catch Streptococcus pneumoniae Antigen (M - Final ABG Data ABG results: ABG 07/06/22 07/07/22 13:44 10:20 Specimen Type ART ART Sample Site R Radial R Radial pH 7.31 L 7.56 H Bicarbonate Actual 30.6 H 29.3 H Total CO2 33 30 Base Excess 4 H 7 H O2 Saturation 100 H 94 L O2 % 21 ABG pCO2 60.6 H 32.5 L ABG pO2 236 H 61 L Constantino Test Positive Positive Respiration Rate 14 14 O2 Delivery Device Adult Vent Adult Vent Vent Mode AC AC Tidal Volume 450 450 POC PEEP 5 5 Radiography Diagnostic Testing: Radiology Impression Chest X-Ray 07/06/22 13:15 IMPRESSION: Satisfactory intubation Electronically Signed: Sean Eric MD at 14:03 EST , Rhythm Strip Rhythm Strip: Sinus Rhythm Rate: 79 Ectopy: None Physical Exam Narrative Const: On vent. No apparent distress Cardio: S1, S2, rate controlled Respiratory: No audible wheezes, rhonchi or rales. Diminished breath sounds bases GI: Abdomen soft, nontender, positive bowel sounds, rounded Extremities: generalized non-pitting edema b/l lower legs. Trace edema arms Indwelling Vang with clear urine in bag Resp Auscultation: diminished lung sounds Cardio Cardio Narrative: irregular rhythm, tachycardic GI Auscultation: normoactive bowel sounds Assessment & Plan Assessment/Plan (1) BOB (acute kidney injury): PLAN: -Non-oliguirc BOB likely from decreased renal perfusion from hypotension. Patient's bps improved now on norepinephrine. History of normal baseline SCr. Yesterday SCr vince to 1.64mg/dL and today SCr 1.62mg/dL. Hopefully SCr is peaking and see improvement in renal function in next coming days with improved BPs. No acute indication for [employer]. -can possibly restart diuretic tomorrow. (2) Hyponatremia: PLAN: -[place] to be secondary to decreased oral solute intake combined with sodium loss with diuretics. Sodium marilu 124 (on admission, 07/03). Off Lasix. Sodium has increased to 130 today. Urine sodium was less than 5, Urine creatinine 131, Urine potassium 15. (3) Hyperkalemia: PLAN: - Potassium was as high as 7.5 on July 05. Today K+ 4.9. CK 20. (4) Pneumonia: PLAN: - On IV antibiotics; ceftriaxone and azithromycin. Blood cultures pending. -Chest x-ray reviewed from 07/06. (5) Acute respiratory failure with hypoxia: PLAN: - on vent 07/06. (6) Atrial fibrillation with rapid ventricular response: PLAN: - Amiodarone, carvedilol, Eliquis Documented by User: Dr. Nikita Soto MD 07/07/22 18:46 Objective Data Lab / Micro Data Result Diagrams: 07/07/22 03:00 07/07/22 03:00 Assessment & Plan Assessment/Plan (1) BOB (acute kidney injury): (2) Hyponatremia: PLAN: -[place] to be secondary to decreased oral solute intake combined with sodium loss with diuretics. Sodium marilu 124 (on admission, 07/03). Off Lasix. Sodium has increased to 130 today. Urine sodium was less than 5, Urine creatinine 131, Urine potassium 15. (3) Hyperkalemia: (4) Pneumonia: (5) Acute respiratory failure with hypoxia: (6) Atrial fibrillation with rapid ventricular response:
--- NOTE | 2022-07-07 14:07 | PN.HOSP_ITS ---
Subjective Subjective Follow-up on acute respiratory failure/Hyperkalemia/NSTEMI: Patient was seen and examined. She is much more awake, interactive even though intubated. No acute events overnight. He converted to normal sinus rhythm, off amiodarone drip. He is also off Levophed Objective Data Objective Data Vital Signs: Vital Signs Temp Pulse Resp BP Pulse Ox O2 Del Method O2 Flow Rate 99 F 78 10 L 107/59 L 95 Mechanical Ventilator 8 07/07/22 12:00 07/07/22 13:00 07/07/22 13:00 07/07/22 13:00 07/07/22 13:00 07/07/22 13:00 07/06/22 09:45 FiO2 25 07/07/22 13:00 Oxygen Flow Rate (L/min) 8 Oxygen Delivery Method Mechanical Ventilator Weight: 100.4 kg Body Mass Index (BMI) 31.3 Intake & Output: Intake and Output for Last 24 Hours 07/05/22 07/06/22 07/07/22 23:59 23:59 23:59 Intake Total 1205 / 1205 2364.28 / 2406.68 297.64 / 297.64 Output Total 800 / 800 545 / 545 325 / 325 Balance 405 / 405 1819.28 / 1861.68 -27.36 / -27.36 Lab / Micro Data Result Diagrams: 07/07/22 03:00 07/07/22 03:00 Labs: Laboratory Results - last 24 hr 07/06/22 17:10: Sodium Cancelled, Potassium Cancelled, Chloride Cancelled, Carbon Dioxide Cancelled, Anion Gap Cancelled, BUN Cancelled, Creatinine Ca ncelled, Estim Creat Clear Calc Cancelled, Est GFR (MDRD) Af Amer Cancelled, Est GFR (MDRD) Non-Af Cancelled, BUN/Creatinine Ratio Cancelled, Glucose Cancelled, Calcium Cancelled 07/06/22 18:00: Sodium 130 L, Potassium 5.1, Chloride 91 L, Carbon Dioxide 31.0, Anion Gap 8, BUN 57 H, Creatinine 1.64 H, Estim Creat Clear Calc 33.53, Est GFR (MDRD) Af Amer 52 L, Est GFR (MDRD) Non-Af 43 L, BUN/Creatinine Ratio 34.8 H, Glucose 117 H, Calcium 8.4 L 07/07/22 03:00: WBC 14.4 H, RBC 4.07 L, Hgb 12.1 L, Hct 35.6 L, MCV 87.5, MCH 29.7, MCHC 34.0, RDW Std Deviation 41.7, RDW Coeff of Brent 13.3, Plt Count 530 H, MPV 8.5, Immature Gran % (Auto) 0.500, Neut % (Auto) 77.7 H, Lymph % (Auto) 9.9 L, [place] % (Auto) 11.4 H, Eos % (Auto) 0.2, Baso % (Auto) 0.3, Absolute Neuts (auto) 11.2 H, Absolute Lymphs (auto) 1.42, Nucleated RBC % 0.2, Differential Comment SCANNED, Diff Path Review December, Platelet Estimate MOD INC 07/07/22 03:00: Sodium 130 L, Potassium 4.9, Chloride 92 L, Carbon Dioxide 30.0, Anion Gap 8, BUN 59 H, Creatinine 1.62 H, Estim Creat Clear Calc 33.94, Est GFR (MDRD) Af Amer 52 L, Est GFR (MDRD) Non-Af 43 L, BUN/Creatinine Ratio 36.4 H, Glucose 122 H, Calcium 8.3 L, Total Bilirubin 1.10 H, AST 17, ALT 18, Alkaline Phosphatase 67, Total Protein 5.3 L, Albumin 2.2 L, Globulin 3.1, Albumin/Globulin Ratio 0.7 L Micro: Microbiology 07/06/22 15:57 Sputum, Induced/Lukens Gram Stain - Final 07/06/22 15:57 Sputum, Induced/Lukens Respiratory Culture - Preliminary GNR Poss Pseudomonas sp 07/03/22 12:53 Urine, Clean Catch Urine Culture - Final Culture exhibits no growth. 07/03/22 12:53 Urine, Clean Catch Legionella Antigen - Final 07/03/22 12:45 Urine, Clean Catch Streptococcus pneumoniae Antigen (M - Final ABG Data ABG results: ABG 07/07/22 10:20 Specimen Type ART Sample Site R Radial pH 7.56 H Bicarbonate Actual 29.3 H Total CO2 30 Base Excess 7 H O2 Saturation 94 L O2 % 21 ABG pCO2 32.5 L ABG pO2 61 L Constantino Test Positive Respiration Rate 14 O2 Delivery Device Adult Vent Vent Mode AC Tidal Volume 450 POC PEEP 5 Rhythm Strip Rhythm Strip: Sinus Rhythm Rate: 79 Ectopy: None Physical Exam Narrative Physical exam: General: Intubated, communicative, mildly sedated, awakes to voices, HEENT: Atraumatic, ET and OG tube in situ Oral: Moist Mucosa Neck: Supple Lungs: Diminished to auscultation, rhonchi Cardiovascular: HS I+II, regular, no murmurs Abdomen: Bowel Sounds Present, Soft, Non Tender Extremities: Bilateral leg edema +1 Skin: No rashes, No breakdown Neurological: Grossly intact Psych/Mental Status: Appropriate Assessment & Plan Assessment/Plan (1) Hyperkalemia: (2) Pneumonia: (3) Acute respiratory failure with hypoxia: PLAN: Plan 1. Hyperkalemia,, status post Kayexalate via NG tube Potassium today is 4.9, will trend 2. Acute hypoxic respiratory failure secondary to acute left lower lobe pneumonia, s/p intubation on 07/06/22 Patient had been on continuous BiPAP/AVAPS. ABG this morning showed worsening respiratory acidosis Continue on IV ceftriaxone, azithromycin, Duoneb breathing treatments prn Repeat Chest x-ray(07/06/22) showed decreasing bilateral pleural effusions, residual compression atelectasis of the left lower lobe We will follow station supervisor recommendations 3. Acute metabolic encephalopathy, multifactorial, s/p intubation ABG showed respiratory acidosis with hypercapnia 4. A. fib with RVR, in NSR, currently on amiodarone GT, therapeutic Lovenox 5. Hyponatremia, acute, improved to 130 Continue to trend. Nephrology following 6. Acute non-STEMI, likely type II, will continue to monitor Continue on beta-gabrielle and therapeutic Lovenox 7. Heart failure with reduced EF, EF 25%, suspected LV apical thrombus on 06/16/22 Patient in acute exacerbation, off Lasix for now Will continue to trend 8. Acute urinary retention, status post Vang catheter placement 9. DVT prophylaxis?on therapeutic Lovenox Charges/Coding Visit Charges Inpatient E&M: 06195 [facility] L3
[2022-07-07] MEDS: Ceftriaxone 1 GM/50 ML BAG IV (21:25)
[2022-07-07] MEDS: Atorvastatin Calcium 40 MG Tablet GT (22:02)
[2022-07-08] VITALS (38 sets, daily range): BP systolic 70–175; BP diastolic 54–94; PULSE 78–152; RESP 10–27; TEMP 36.4–36.7; O2SAT 92–97
[2022-07-08 03:58] LABS: Absolute Lymphocyte Count 0.87 X10^3/uL (0.83-4.51); Absolute Neutrophil Count 11.1 X10^3/uL (2.0-7.7); Basophil# 0.02 X10^3/uL; Basophil% 0.1 % (0-1); Eosinophil# 0.04 X10^3/uL; Eosinophils% 0.3 % (0-5); Hematocrit 33.6 % (40-54); Hemoglobin 11.7 g/dL (13.0-16.5); Lymphocyte # 0.87 X10^3/ul (0.83-4.51); Lymphocyte % 6.4 % (19-41); Mean Corp Hgb Conc 34.8 g/dL (32-36); Mean Corpuscular Hgb 30.3 pg (27.0-32.0); Mean Platelet Vol. 8.1 fl (6.2-12.0); Monocyte# 1.46 X10^3/uL; Monocyte% 10.8 % (0-10); NRBC Flagged by Analyzer 0 % (0-5); Neutrophil # 11.07 X10^3/uL (2.7-7.7); Platelet Count 324 K/mm3 (150-450); RBC Distribution Width CV 13.6 % (11.6-14.6); RBC Distribution Width SD 42.9 fl (35.1-43.9); Red Blood Count 3.86 M/mm3 (4.6-6.2); White Blood Count 13.5 K/mm3 (4.4-11.0)
[2022-07-08 04:23] LABS: ALB/GLOB Ratio 0.6 RATIO (0.9-2.4); AST(SGOT) 19 U/L (15-37); Alanine Aminotransfer ALT/SGPT 18 U/L (16-61); Alkaline Phosphatase 66 U/L (45-117); Anion Gap 7 (5-15); BUN 51 mg/dL (7-18); BUN/Creat Ratio 41.8 RATIO (10-20); Calcium,Total 7.9 mg/dL (8.5-10.1); Chloride 91 mmol/L (98-107); Creatinine, Serum 1.22 mg/dL (0.70-1.30); EST Glomerular Filtration Rate 60 mL/min (>60); Est Glom Filt Rate - Afr Amer 73 mL/min (>60); Estimated Creatinine Clearance 45.07 ml/min; Globulin 3.5 g/dL (2.2-4.2); Glucose 124 mg/dL (74-106); Potassium 3.9 mmol/L (3.5-5.1); Protein, Total 5.5 g/dL (6.4-8.2); Sodium Level 132 mmol/L (136-145)
[2022-07-08 06:16] LABS: Allen Test Positive; Base Excess 6 mmol/L (-2 to +2); Bicarbonate 30.4 mmol/L (22-26); Blood Gas Specimen Type ART; FI02 25; Mode CPAP/PS; O2 Delivery Device Adult Vent; PEEP 5; PO2 79 mmHG (75-100); PS 5; SITE L Radial; SO2 96 % (95-99); Total Carbon Dioxide 32 mmol/L; pCO2 46.6 mmHg (35-45); pH 7.42 (7.35-7.45)
[2022-07-08] MEDS: Aspirin 81 MG TAB.CHEW GT (06:25)
[2022-07-08] MEDS: 0.9% Saline Lock 10 ML Syringe IV ×2 (06:25→07:19)
[2022-07-08] MEDS: Famotidine 20 MG Tablet GT (06:25)
[2022-07-08] MEDS: Amiodarone 200 MG Tablet 100 MG GT (06:25)
[2022-07-08] MEDS: CHLORHEXIDINE GLUC 2% CLOTH 1 EACH TOWELETTE TOPICAL (06:26)
--- NOTE | 2022-07-08 06:42 | NURSING ---
Pt extubated to 3 L NC @ 0632.
[2022-07-08] MEDS: Digoxin 250 MCG/ML Ampul 320 MCG IV (07:18)
--- NOTE | 2022-07-08 07:25 | PN.CC_ITS ---
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 Okay to proceed with extubation. 2. Transition to Levaquin therapy given Pseudomonas on sputum 3. Continue amiodarone 4. Dose with digoxin 5. Wean supplemental oxygen as tolerated 6. Continue anticoagulation given suspected left ventricular apical thrombus IMPRESSIONS: 1. Acute combined respiratory failure secondary to pseudomonal pneumonia Patient with a metabolic and respiratory component of acidosis with poor compensation. Patient also with findings consistent with volume overloaded, probably from CHF leading to increased AA gradient. Patient able to be successfully extubated at this time. Patient is growing significant Pseudomonas from endotracheal sample, so will transition from ceftriaxone to Levaquin. Await sensitivities. 2. Sepsis Probable pneumonia. Patient did have significant hyperkalemia and hyponatremia. Patient also with significant acidosis. Some concern for sepsis, so antibiotics will be broadened. Patient is showing endorgan damage with respiratory failure, acute kidney injury and encephalopathy. Wean pressors as tolerated we will obtain blood cultures. Sputum cultures were obtained with intubation yesterday. 3. Hyponatremia/hyperkalemia Improved. Clinical suspicion for hyperkalemia secondary to a component of acidosis. Unclear if patient's hyponatremia represents a paraneoplastic syndrome given melanoma. Patient may have an element of RTA also. 4. Acute on chronic systolic CHF with suspected left ventricular thrombus Patient initially appeared to be in an acute exacerbation secondary to A. fib with RVR. Patient needs to be on anticoagulation given left ventricular apical thrombus. Patient currently in A. fib with RVR. We will treat with digoxin. May need to reinitiate amiodarone drip. Clinical suspicion for metabolic encephalopathy, but cannot exclude migration of clot. Patient is not showing any focal neurologic signs at this time, but may need a CT of the head in the future if not improving after control of acidosis and hypercarbia. 5. Acute urinary retention/metastatic melanoma/advanced age/obesity/BPH CODE STATUS confirmed with patient's . Patient is a full code despite difficulties with previous chemotherapy. Patient has a Vang in place, but will likely need a voiding trial prior to discharge Addendum 10:30 AM: Called emergently to the patient's bedside at approximately 8:45 AM secondary to hemoptysis with desaturation. Patient had stopped attempting to cough. Patient was in A. fib with RVR. Attempted NT suctioning without success. After further evaluation, it was determined patient needed to be intubated. Patient intubated using a 4 blade on glide scope. No posterior pharyngeal or nasal bleeding was appreciated. Patient's false vocal cords were significantly edematous. Upon passing endotracheal tube into the airway, significant hemoptysis noted. Tube was exchanged. Inline suctioning showed significant bleeding, but was able to clear. Hemodynamics improved significantly after intubation. Patient did receive 20 mg of etomidate. Placement was verified by CO2, condensation in the endotracheal tube, improvement in saturations and visualization passing the cords. Total additional critical care time of 40 minutes. Patient's and daughter have been made aware. TIME: 78 minutes critical care time spent addressing patient's acute respiratory failure, hypotension, CHF, urinary retention, review of all data and collaboration with care team Subjective Subjective Patient did well overnight. No acute issues were reported. Patient was able to tolerate a spontaneous breathing trial this morning. After my evaluation, patient was successfully extubated. Patient then developed A. fib with RVR. Patient reported mild shortness of breath, but no stridor was noted. Objective Data Objective Data Vital Signs: Vital Signs Temp Pulse Resp BP Pulse Ox O2 Del Method O2 Flow Rate 36.6 C 152 H 27 H 161/94 H 96 Nasal Cannula 2 07/08/22 04:00 07/08/22 07:18 07/08/22 07:00 07/08/22 07:00 07/08/22 07:00 07/08/22 07:00 07/08/22 07:00 FiO2 25 07/08/22 06:00 Oxygen Flow Rate (L/min) 2 Oxygen Delivery Method Nasal Cannula Weight: 101.7 kg Body Mass Index (BMI) 31.3 Intake & Output: Intake and Output for Last 24 Hours 07/06/22 07/07/22 07/08/22 23:59 23:59 23:59 Intake Total 2364.28 / 2406.68 972.64 / 1095.47 479.08 / 479.08 Output Total 545 / 545 505 / 855 700 / 700 Balance 1819.28 / 1861.68 467.64 / 240.47 -220.92 / -220.92 Lab / Micro Data Attestation: I reviewed the patient's lab results. Result Diagrams: 07/08/22 03:52 07/08/22 03:52 Labs: Laboratory Results - last 24 hr 07/08/22 03:52: WBC 13.5 H, RBC 3.86 L, Hgb 11.7 L, Hct 33.6 L, MCV 87.0, MCH 30.3, MCHC 34.8, RDW Std Deviation 42.9, RDW Coeff of Brent 13.6, Plt Count 324, MPV 8.1, Immature Gran % (Auto) 0.400, Neut % (Auto) 82.0 H, Lymph % (Auto) 6.4 L, [place] % (Auto) 10.8 H, Eos % (Auto) 0.3, Baso % (Auto) 0.1, Absolute Neuts (auto) 11.1 H, Absolute Lymphs (auto) 0.87, Nucleated RBC % 0 07/08/22 03:52: Sodium 132 L, Potassium 3.9, Chloride 91 L, Carbon Dioxide 34.0 H, Anion Gap 7, BUN 51 H, Creatinine 1.22, Estim Creat Clear Calc 45.07, Est GFR (MDRD) Af Amer 73, Est GFR (MDRD) Non-Af 60, BUN/Creatinine Ratio 41.8 H, Glucose 124 H, Calcium 7.9 L, Total Bilirubin 0.80, AST 19, ALT 18, Alkaline Phosphatase 66, Total Protein 5.5 L, Albumin 2.0 L, Globulin 3.5, Albumin/Globulin Ratio 0.6 L Micro: Microbiology 07/06/22 15:57 Sputum, Induced/Lukens Gram Stain - Final 07/06/22 15:57 Sputum, Induced/Lukens Respiratory Culture - Preliminary GNR Poss Pseudomonas sp 07/03/22 12:53 Urine, Clean Catch Urine Culture - Final Culture exhibits no growth. 07/03/22 12:53 Urine, Clean Catch Legionella Antigen - Final 07/03/22 12:45 Urine, Clean Catch Streptococcus pneumoniae Antigen (M - Final ABG Data ABG results: ABG 07/07/22 07/08/22 10:20 06:10 Specimen Type ART ART Sample Site R Radial L Radial pH 7.56 H 7.42 Bicarbonate Actual 29.3 H 30.4 H Total CO2 30 32 Base Excess 7 H 6 H O2 Saturation 94 L 96 O2 % 21 25 ABG pCO2 32.5 L 46.6 H ABG pO2 61 L 79 Constantino Test Positive Positive Respiration Rate 14 O2 Delivery Device Adult Vent Adult Vent Vent Mode AC CPAP/PS Tidal Volume 450 POC PEEP 5 5 POC Pressure Suppt 5 Rhythm Strip Rhythm Strip: Sinus Rhythm Rate: 79 Ectopy: None Physical Exam Const Constitutional Narrative: Does follow some simple commands General Appearance: patient mechanically ventilated Exam Limitations: altered mental status Nutritional Appearance: obese centrally obese HEENT normocephalic General Ear: hearing grossly impaired diffuse Eyes PERRL and EOMs intact bilaterally Eyes Narrative: Scleral injection noted Neck full ROM and supple Chest inspection of chest normal Resp Auscultation: diminished lung sounds; Negative for rales, rhonchi or wheezes Cardio S1 normal heart sound, S2 normal heart sound, no murmurs, no rub and no gallops Rate: tachycardic Rhythm: abnormal rhythm irregularly irregular GI normal to inspection, nondistended, normoactive bowel sounds and soft to palpation Extremity General Extremity: edema; Negative for clubbing Skin General Skin Exam: venous stasis Psych Mood & Affect: flat affect Charges/Coding Procedures Hospitalists Procedures: 12578 Critial Care 1st Hr Multi Select Codes Hospitalists' Procedures Procedures: 02935 Critial Care Addl 30 Min
--- NOTE | 2022-07-08 07:30 | PN.HOSP_ITS ---
Subjective Subjective Follow-up on acute respiratory failure/Hyperkalemia/NSTEMI: Patient was seen and examined. Patient was extubated successfully today. He started having hemoptysis. He did not seem to be able to swallow. He was ta chycardic and went into A. fib with RVR. He did receive a dose of dig. He was reintubated again. Objective Data Objective Data Vital Signs: Vital Signs Temp Pulse Resp BP Pulse Ox O2 Del Method O2 Flow Rate 97.8 F 152 H 27 H 161/94 H 96 Nasal Cannula 2 07/08/22 04:00 07/08/22 07:18 07/08/22 07:00 07/08/22 07:00 07/08/22 07:00 07/08/22 07:00 07/08/22 07:00 FiO2 25 07/08/22 06:00 Oxygen Flow Rate (L/min) 2 Oxygen Delivery Method Nasal Cannula Weight: 101.7 kg Body Mass Index (BMI) 31.3 Intake & Output: Intake and Output for Last 24 Hours 07/06/22 07/07/22 07/08/22 23:59 23:59 23:59 Intake Total 2364.28 / 2406.68 972.64 / 1095.47 479.08 / 479.08 Output Total 545 / 545 505 / 855 700 / 700 Balance 1819.28 / 1861.68 467.64 / 240.47 -220.92 / -220.92 Lab / Micro Data Result Diagrams: 07/08/22 03:52 07/08/22 03:52 Labs: Laboratory Results - last 24 hr 07/08/22 03:52: WBC 13.5 H, RBC 3.86 L, Hgb 11.7 L, Hct 33.6 L, MCV 87.0, MCH 30.3, MCHC 34.8, RDW Std Deviation 42.9, RDW Coeff of Brent 13.6, Plt Count 324, MPV 8.1, Immature Gran % (Auto) 0.400, Neut % (Auto) 82.0 H, Lymph % (Auto) 6.4 L, [place] % (Auto) 10.8 H, Eos % (Auto) 0.3, Baso % (Auto) 0.1, Absolute Neuts (au to) 11.1 H, Absolute Lymphs (auto) 0.87, Nucleated RBC % 0 07/08/22 03:52: Sodium 132 L, Potassium 3.9, Chloride 91 L, Carbon Dioxide 34.0 H, Anion Gap 7, BUN 51 H, Creatinine 1.22, Estim Creat Clear Calc 45.07, Est GFR (MDRD) Af Amer 73, Est GFR (MDRD) Non-Af 60, BUN/Creatinine Ratio 41.8 H, Glucose 124 H, Calcium 7.9 L, Total Bilirubin 0.80, AST 19, ALT 18, Alkaline Phosphatase 66, Total Protein 5.5 L, Albumin 2.0 L, Globulin 3.5, Albumin/Gl obulin Ratio 0.6 L Micro: Microbiology 07/06/22 15:57 Sputum, Induced/Lukens Gram Stain - Final 07/06/22 15:57 Sputum, Induced/Lukens Respiratory Culture - Preliminary GNR Poss Pseudomonas sp 07/03/22 12:53 Urine, Clean Catch Urine Culture - Final Culture exhibits no growth. 07/03/22 12:53 Urine, Clean Catch Legionella Antigen - Final 07/03/22 12:45 Urine, Clean Catch Streptococcus pneumoniae Antigen (M - Final ABG Data ABG results: ABG 07/07/22 07/08/22 10:20 06:10 Specimen Type ART ART Sample Site R Radial L Radial pH 7.56 H 7.42 Bicarbonate Actual 29.3 H 30.4 H Total CO2 30 32 Base Excess 7 H 6 H O2 Saturation 94 L 96 O2 % 21 25 ABG pCO2 32.5 L 46.6 H ABG pO2 61 L 79 Constantino Test Positive Positive Respiration Rate 14 O2 Delivery Device Adult Vent Adult Vent Vent Mode AC CPAP/PS Tidal Volume 450 POC PEEP 5 5 POC Pressure Suppt 5 Rhythm Strip Rhythm Strip: Sinus Rhythm Rate: 79 Ectopy: None Physical Exam Narrative Physical exam: General: Intubated, sedated, on [facility] ventilator HEENT: Atraumatic, ET and OG tube in situ Oral: Moist Mucosa Neck: Supple Lungs: Diminished to auscultation, rhonchi Cardiovascular: HS I+II, regular, no murmurs Abdomen: Bowel Sounds Present, Soft, Non Tender Extremities: Bilateral leg edema +1 Skin: No rashes, No breakdown Neurological: Grossly intact Psych/Mental Status: Appropriate Assessment & Plan Assessment/Plan (1) Hyperkalemia: (2) Pneumonia: (3) Acute respiratory failure with hypoxia: PLAN: Plan 1. Acute hypoxic respiratory failure secondary to acute left lower lobe pneumonia, s/p intubation on 07/06/22, reintubated 07/08/22 He had earlier on passed his spontaneous breathing trial; successfully extubated Developed hemoptysis and swallowing difficulty requiring reintubation to protect his airway Continue on current mechanical ventilator settings 3. Acute metabolic encephalopathy, multifactorial, s/p intubation Will evaluate after extubation 4. A. fib with RVR, back in RVR, continue on amiodarone GT, therapeutic Lovenox 5. Hyponatremia, acute, improved to 130 Continue to trend. Nephrology following 6. Acute non-STEMI, likely type II, will continue to monitor Will restart beta-gabrielle, continue on therapeutic Lovenox 7. Heart failure with reduced EF, EF 25%, suspected LV apical thrombus on 06/16/22 Patient in acute exacerbation, off Lasix for now Will continue to trend 8. Acute urinary retention, status post Vang catheter placement 9. DVT prophylaxis?on therapeutic Lovenox Charges/Coding Visit Charges Inpatient E&M: 81636 [facility] L3
[2022-07-08] MEDS: Etomidate 20 MG/10 ML Vial IV (08:55)
[2022-07-08] MEDS: Propofol 10MG/Ml 1,000 MG/100 ML Bottle 6.1 MG CONT INF ×2 (09:00→20:56)
--- NOTE | 2022-07-08 09:04 | RAD_ITS ---
HISTORY: Re-Intubated. TECHNIQUE: XR Chest 1 View. COMPARISON: 07/06/2022. FINDINGS: LINES/TUBES: Right chest wall port with catheter tip at the junction of the superior vena cava and right atrium. Endotracheal tube tip 4-5 cm above the laya. Nasogastric tube tip in the left upper quadrant in the region of the stomach. CARDIOMEDIASTINAL BORDERS: Stable. LUNGS: Persistent interstitial opacities in the mid to lower lungs. PLEURA: Increased bilateral pleural effusions. RAD/CXR for Line Placement IMPRESSION: Satisfactory endotracheal and nasogastric tube position. Increased pleural effusions with persistent bibasilar atelectasis or edema. Electronically Signed: Eliza Rodriguez MD at 9:45 EST ,
[2022-07-08 09:09] LABS: Pathologist Review Reviewed
--- NOTE | 2022-07-08 09:11 | ECHOLC_ITS ---
Reason For Study: LV Thrombus Procedure This was a limited 2D transthoracic echocardiogram. The study was technically difficult. Contrast injection was performed. Exam performed portable in ICU/CCU. Left Ventricle Normal LV size. Left ventricular systolic function is normal. The estimated ejection fraction is 55 %. No regional wall motion abnormalities noted. Right Ventricle Normal RV size. Normal systolic function. Atria Normal left atrium. Normal right atrium. Mitral Valve Mitral valve not well visualized. Aortic Valve The aortic valve is not well visualized. Pulmonic Valve The pulmonic valve is not well visualized. Great Vessels Normal aortic root. Pericardium/Pleural Small pericardial effusion. There are no echocardiographic indications of cardiac tamponade. Moderate size left pleural effusion. Medication Diluted definity 4.5ml given slow IV push to enhance endocardial definition. MMode/2D Measurements & Calculations LVIDd: 4.3 cm IVSd: 1.2 cm LVIDs: 2.5 cm LVPWd: 1.2 cm FS: 41.6 % ECHO/Echo Limited w/Contrast Interpretation Summary Normal LV size. Left ventricular systolic function is normal. The estimated ejection fraction is 55 %. Small pericardial effusion. There are no echocardiographic indications of cardiac tamponade. Moderate size left pleural effusion. No ventricular thrombus is noted. Contrast injection was performed. Ordering Physician: Jason Mcdonald Referring Physician: Joyce Vaca Performed By: Lissa Ramos, RDCS, RVT
--- NOTE | 2022-07-08 09:22 | NURSING ---
Patient coughing up priyanka red blood this morning. Dr. Mcdonald at bedside to assess at 0740. Continue to monitor. Patient noted to be hypoxic with a pulse ox in low 80's at 0838. Dr. Mcdonald contacted and instructed to do NG suctioning. Nasal trumpet placed in right nostril but unable to pass suction catheter. Need oral suctioning performed with priyanka red blood but pulse ox continued to drop to the 70's. Dr. Mcdonald at the bedside. Patient bagged with ambubag and emergently intubated by Dr. Mcdonald at 0900. Positive color change on CO2 and condensation present in ET tube. Copious amounts of priyanka red blood noted in ET tube. Et tube suctioned. OG placed by Dr. Mcdonald and noted to have blood tinged secretions.
[2022-07-08 09:39] LABS: Pathologist Review Reviewed
[2022-07-08] MEDS: Chlorhexidine 15 ML PO ×2 (10:50→20:54)
[2022-07-08] MEDS: Docusate Sodium 100 MG/10 ML UDC GT ×2 (10:52→20:54)
[2022-07-08] MEDS: levoFLOXacin IV 750 MG/150 ML BAG 100 MG IV (10:53)
[2022-07-08] MEDS: Vital AF 1.2 Cal Liquid 1,000 ML 35 ML GT (10:58)
[2022-07-08 10:59] LABS: CPK Total, Creatine Kinase 75 U/L (39-308); Triglycerides 74 mg/dL
--- NOTE | 2022-07-08 14:09 | PCM.PN.REN ---
Subjective Subjective Following for BOB, hyponatremia, hyperkalemia Patient on vent. No apparent distress Objective Data Objective Data Vital Signs: Vital Signs Temp Pulse Resp BP Pulse Ox O2 Del Method O2 Flow Rate 98.1 F 124 H 10 L 101/56 L 96 Mechanical Ventilator 2 07/08/22 12:00 07/08/22 13:00 07/08/22 13:00 07/08/22 13:00 07/08/22 13:00 07/08/22 13:00 07/08/22 08:00 FiO2 35 07/08/22 13:00 Oxygen Flow Rate (L/min) 2 Oxygen Delivery Method Mechanical Ventilator Weight: 101.7 kg Body Mass Index (BMI) 31.3 Intake & Output: Intake and Output for Last 24 Hours 07/06/22 07/07/22 07/08/22 23:59 23:59 23:59 Intake Total 2364.28 / 2406.68 972.64 / 1095.47 1420.66 / 1420.66 Output Total 545 / 545 505 / 855 975 / 975 Balance 1819.28 / 1861.68 467.64 / 240.47 445.66 / 445.66 Lab / Micro Data Result Diagrams: 07/08/22 03:52 07/08/22 03:52 Labs: Laboratory Results - last 24 hr 07/05/22 08:09: Diff Path Review Reviewed 07/07/22 03:00: Diff Path Review Reviewed 07/08/22 03:52: WBC 13.5 H, RBC 3.86 L, Hgb 11.7 L, Hct 33.6 L, MCV 87.0, MCH 30.3, MCHC 34.8, RDW Std Deviation 42.9, RDW Coeff of Brent 13.6, Plt Count 324, MPV 8.1, Immature Gran % (Auto) 0.400, Neut % (Auto) 82.0 H, Lymph % (Auto) 6.4 L, Lewis % (Auto) 10.8 H, Eos % (Auto) 0.3, Baso % (Auto) 0.1, Absolute Neuts (auto) 11.1 H, Absolute Lymphs (auto) 0.87, Nucleated RBC % 0 07/08/22 03:52: Sodium 132 L, Potassium 3.9, Chloride 91 L, Carbon Dioxide 34.0 H, Anion Gap 7, BUN 51 H, Creatinine 1.22, Estim Creat Clear Calc 45.07, Est GFR (MDRD) Af Amer 73, Est GFR (MDRD) Non-Af 60, BUN/Creatinine Ratio 41.8 H, Glucose 124 H, Calcium 7.9 L, Total Bilirubin 0.80, AST 19, ALT 18, Alkaline Phosphatase 66, Total Protein 5.5 L, Albumin 2.0 L, Globulin 3.5, Albumin/Globulin Ratio 0.6 L 07/08/22 03:52: Total Creatine Kinase 75, Triglycerides 74 Micro: Microbiology 07/07/22 08:07 Urine Catheter - Catheter Urine Culture - Preliminary Culture exhibits no growth. 07/06/22 15:57 Sputum, Induced/Lukens Gram Stain - Final 07/06/22 15:57 Sputum, Induced/Lukens Respiratory Culture - Final Pseudomonas aeroginosa 07/03/22 12:53 Urine, Clean Catch Urine Culture - Final Culture exhibits no growth. 07/03/22 12:53 Urine, Clean Catch Legionella Antigen - Final 07/03/22 12:45 Urine, Clean Catch Streptococcus pneumoniae Antigen (M - Final ABG Data ABG results: ABG 07/08/22 06:10 Specimen Type ART Sample Site L Radial pH 7.42 Bicarbonate Actual 30.4 H Total CO2 32 Base Excess 6 H O2 Saturation 96 O2 % 25 ABG pCO2 46.6 H ABG pO2 79 Constantino Test Positive O2 Delivery Device Adult Vent Vent Mode CPAP/PS POC PEEP 5 POC Pressure Suppt 5 Radiography Diagnostic Testing: Radiology Impression Chest X-Ray 07/08/22 09:04 IMPRESSION: Satisfactory endotracheal and nasogastric tube position. Increased pleural effusions with persistent bibasilar atelectasis or edema. Electronically Signed: Eliza Rodriguez MD at 9:45 EST , Echocardiogram 07/08/22 09:11 Interpretation Summary Normal LV size. Left ventricular systolic function is normal. The estimated ejection fraction is 55 %. Small pericardial effusion. There are no echocardiographic indications of cardiac tamponade. Moderate size left pleural effusion. No ventricular thrombus is noted. Contrast injection was performed. Ordering Physician: Jason Mcdonald Referring Physician: Joyce Vaca Performed By: Lissa Ramos, ALISA, RVT Rhythm Strip Rhythm Strip: Sinus Rhythm Rate: 79 Ectopy: None Physical Exam Narrative Const: On vent. No apparent distress Cardio: S1, S2, rate controlled Respiratory: No audible wheezes, rhonchi or rales. Diminished breath sounds bases GI: Abdomen soft, positive bowel sounds, rounded Extremities: generalized non-pitting edema b/l lower legs. Trace edema arms Indwelling Vang with clear urine in bag Cardio Cardio Narrative: irregular rhythm, tachycardic Assessment & Plan Assessment/Plan (1) BOB (acute kidney injury): PLAN: -Non-oliguirc BOB likely from decreased renal perfusion from hypotension. Patient's bps improved with pressor support. Now off pressors. History of normal baseline SCr. - On 07/06 SCr vince to 1.64mg/dL, on 07/07 SCr 1.62mg/dL, serum creatinine 1.22 mg/dL today. No acute indication for MICROSTRATEGY ARCHITECT. Urine output already about 1 L today. - No acute indication for MICROSTRATEGY ARCHITECT at this time as renal function is improving, patient is non-oliguric and UOP seems to be picking up but will continue to monitor renal function closely as he is at risk for recurrent BOB (2) Hyponatremia: PLAN: -[place] to be secondary to decreased oral solute intake combined with sodium loss with diuretics. Sodium marilu 124 (on admission, 07/03). Off Lasix. Sodium has increased to 132 today. Urine sodium was less than 5, Urine creatinine 131, Urine potassium 15. (3) Hyperkalemia: PLAN: - Potassium was as high as 7.5 on July 05. Today K+ 3.9. CK 20. (4) Pneumonia: PLAN: - On IV antibiotics; Levaquin and flagyl. Blood cultures pending. Sputum positive Pseudomonas - Chest x-ray reviewed from today - Echo today normal LV size, left ventricular systolic function normal, EF 55%.. (5) Acute respiratory failure with hypoxia: PLAN: - on vent 07/06. Patient was successfully extubated this morning but had hemoptysis, became tachycardic and went into A. fib with RVR therefore he was reintubated again. (6) Atrial fibrillation with rapid ventricular response: PLAN: - Amiodarone drip
[2022-07-08] MEDS: metroNIDAZOLE 500 MG/100 ML BAG 100 MG IV ×2 (14:19→20:53)
[2022-07-08] MEDS: Amiodarone 360 MG in Dextrose 5% Viaflo Bag 192.8 ML 33.3 MG CONT INF (15:00)
[2022-07-08] MEDS: Ipratropium/Albuterol Sulfate 3 ML AMPUL.NEB INHALATION (19:13)
[2022-07-08] MEDS: Atorvastatin Calcium 40 MG Tablet GT (20:56)
[2022-07-08] MEDS: Amiodarone 360 MG in Dextrose 5% Viaflo Bag 192.8 ML 16.7 MG CONT INF (21:02)
[2022-07-09] VITALS (33 sets, daily range): BP systolic 81–131; BP diastolic 55–94; PULSE 83–123; RESP 10–24; TEMP 36.2–37.3; O2SAT 93–100
[2022-07-09 04:19] LABS: Basophil# 0.02 X10^3/uL; Basophil% 0.2 % (0-1); Eosinophil# 0.08 X10^3/uL; Eosinophils% 0.7 % (0-5); Hematocrit 32.3 % (40-54); Hemoglobin 10.4 g/dL (13.0-16.5); Lymphocyte % 7.9 % (19-41); Mean Corp Hgb Conc 32.2 g/dL (32-36); Mean Corpuscular Hgb 29.7 pg (27.0-32.0); Mean Corpuscular Volume 92.3 fL (80-94); Mean Platelet Vol. 8.4 fl (6.2-12.0); Monocyte# 1.28 X10^3/uL; Monocyte% 11.3 % (0-10); NRBC Flagged by Analyzer 0 % (0-5); Neutrophil # 9.01 X10^3/uL (2.7-7.7); Neutrophil % 79.2 % (47-70); Platelet Count 278 K/mm3 (150-450); RBC Distribution Width CV 13.6 % (11.6-14.6); RBC Distribution Width SD 45.5 fl (35.1-43.9); White Blood Count 11.4 K/mm3 (4.4-11.0)
[2022-07-09 04:40] LABS: ALB/GLOB Ratio 0.6 RATIO (0.9-2.4); AST(SGOT) 26 U/L (15-37); Alanine Aminotransfer ALT/SGPT 18 U/L (16-61); Albumin, Serum 1.8 g/dL (3.2-5.0); Alkaline Phosphatase 60 U/L (45-117); Anion Gap 5 (5-15); BUN 52 mg/dL (7-18); BUN/Creat Ratio 44.1 RATIO (10-20); Calcium,Total 7.9 mg/dL (8.5-10.1); Chloride 92 mmol/L (98-107); Creatinine, Serum 1.18 mg/dL (0.70-1.30); EST Glomerular Filtration Rate 62 mL/min (>60); Est Glom Filt Rate - Afr Amer 76 mL/min (>60); Globulin 3.2 g/dL (2.2-4.2); Glucose 128 mg/dL (74-106); Potassium 4.3 mmol/L (3.5-5.1); Sodium Level 133 mmol/L (136-145)
[2022-07-09] MEDS: CHLORHEXIDINE GLUC 2% CLOTH 1 EACH TOWELETTE TOPICAL (04:40)
[2022-07-09] MEDS: metroNIDAZOLE 500 MG/100 ML BAG 100 MG IV (06:27)
[2022-07-09] MEDS: Ipratropium/Albuterol Sulfate 3 ML AMPUL.NEB INHALATION ×5 (07:00→22:43)
--- NOTE | 2022-07-09 07:10 | PN.CC_ITS ---
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 Hold Lovenox for 48 hours 2. Transition to cefepime given pansensitive Pseudomonas on sputum and concern for QT on amiodarone 3. Continue amiodarone 4. Potential diuretic challenge if blood pressures improve 5. Wean supplemental oxygen as tolerated IMPRESSIONS: 1. Acute combined respiratory failure secondary to pseudomonal pneumonia Patient with a metabolic and respiratory component of acidosis with poor compensation. Patient also with findings consistent with volume overloaded, probably from CHF leading to increased AA gradient. We will transition patient to cefepime from Levaquin secondary to concerns with QT interval on amiodarone. LV thrombus does not appear to be present at this time. We will hold anticoagulation for 48 hours. If bloody secretions improved, potential extu bation at that time. Patient was able to pass a spontaneous breathing trial, but was not extubated as he was not able to handle his bloody secretions leading to repeat intubation yesterday. 2. Sepsis Probable pneumonia source. Patient did have significant hyperkalemia and hyponatremia. Patient also with significant acidosis. Some concern for sepsis, so antibiotics will be broadened. Patient is showing endorgan damage with respiratory failure, acute kidney injury and encephalopathy. Blood pressures have remained marginal 3. Hyponatremia/hyperkalemia Improved. Clinical suspicion for hyperkalemia secondary to a component of acidosis. Unclear if patient's hyponatremia represents a paraneoplastic syndrome given melanoma. Patient may have an element of RTA also. 4. Acute on chronic systolic CHF with suspected left ventricular thrombus Patient initially appeared to be in an acute exacerbation secondary to A. fib with RVR. Patient does have a history of left ventricular apical thrombus, but this was not present on recent echocardiogram. We will hold anticoagulation for 48 hours given hemoptysis. Patient currently in A. fib with RVR. We will treat with digoxin. Avoid Levaquin given need for amiodarone and QT concerns. Clinical suspicion for metabolic encephalopathy, but cannot exclude migration of clot. Patient is not showing any focal neurologic signs at this time, but may need a CT of the head in the future if not improving after control of acidosis and hypercarbia. 5. Acute urinary retention/metastatic melanoma/advanced age/obesity/BPH CODE STATUS confirmed with patient's . Patient is a full code despite difficulties with previous chemotherapy. Patient has a Vang in place, but will likely need a voiding trial prior to discharge TIME: 32 minutes critical care time spent addressing patient's acute respiratory failure, hypotension, CHF, urinary retention, review of all data and collaborati on with care team Subjective Subjective Patient did well overnight. Patient still having intermittent bloody secretions, but volume appears to be improving. Patient was able to tolerate a spontaneous breathing trial this morning, but was not extubated secondary to bloody secretions. Objective Data Objective Data Vital Signs: Vital Signs Temp Pulse Resp BP Pulse Ox O2 Del Method O2 Flow Rate 37.3 C H 117 H 16 105/59 L 94 Mechanical Ventilator 2 07/09/22 04:00 07/09/22 07:00 07/09/22 07:00 07/09/22 07:00 07/09/22 07:00 07/09/22 07:00 07/08/22 08:00 FiO2 30 07/09/22 07:00 Oxygen Flow Rate (L/min) 2 Oxygen Delivery Method Mechanical Ventilator Weight: 102.7 kg Body Mass Index (BMI) 31.3 Intake & Output: Intake and Output for Last 24 Hours 07/07/22 07/08/22 07/09/22 23:59 23:59 23:59 Intake Total 972.64 / 1095.47 2496.20 / 2534.80 208.84 / 208.84 Output Total 505 / 855 1150 / 1150 400 / 400 Balance 467.64 / 240.47 1346.20 / 1384.80 -191.16 / -191.16 Lab / Micro Data Attestation: I reviewed the patient's lab results. Result Diagrams: 07/09/22 04:10 07/09/22 04:10 Labs: Laboratory Results - last 24 hr 07/05/22 08:09: Diff Path Review Reviewed 07/07/22 03:00: Diff Path Review Reviewed 07/08/22 03:52: Total Creatine Kinase 75, Triglycerides 74 07/09/22 04:10: Sodium 133 L, Potassium 4.3, Chloride 92 L, Carbon Dioxide 36.0 H, Anion Gap 5, BUN 52 H, Creatinine 1.18, Estim Creat Clear Calc 46.60, Est GFR (MDRD) Af Amer 76, Est GFR (MDRD) Non-Af 62, BUN/Creatinine Ratio 44.1 H, Glucose 128 H, Calcium 7.9 L, Total Bilirubin 0.60, AST 26, ALT 18, Alkaline Phosphatase 60, Total Protein 5.0 L, Albumin 1.8 L, Globulin 3.2, Albumin/Globulin Ratio 0.6 L 07/09/22 04:10: WBC 11.4 H, RBC 3.50 L, Hgb 10.4 L, Hct 32.3 L, MCV 92.3 D, MCH 29.7, MCHC 32.2 D, RDW Std Deviation 45.5 H, RDW Coeff of Brent 13.6, Plt Count 278, MPV 8.4, Immature Gran % (Auto) 0.700, Neut % (Auto) 79.2 H, Lymph % (Auto) 7.9 L, [place] % (Auto) 11.3 H, Eos % (Auto) 0.7, Baso % (Auto) 0.2, Absolute Neuts (auto) 9.0 H, Absolute Lymphs (auto) 0.90, Nucleated RBC % 0 Micro: Microbiology 07/07/22 08:07 Urine Catheter - Catheter Urine Culture - Preliminary Culture exhibits no growth. 07/06/22 15:57 Sputum, Induced/Lukens Gram Stain - Final 07/06/22 15:57 Sputum, Induced/Lukens Respiratory Culture - Final Pseudomonas aeroginosa 07/03/22 12:53 Urine, Clean Catch Urine Culture - Final Culture exhibits no growth. 07/03/22 12:53 Urine, Clean Catch Legionella Antigen - Final 07/03/22 12:45 Urine, Clean Catch Streptococcus pneumoniae Antigen (M - Final Radiography Diagnostic Testing: Radiology Impression Chest X-Ray 07/08/22 09:04 IMPRESSION: Satisfactory endotracheal and nasogastric tube position. Increased pleural effusions with persistent bibasilar atelectasis or edema. Electronically Signed: Eliza Rodriguez MD at 9:45 EST , Echocardiogram 07/08/22 09:11 Interpretation Summary Normal LV size. Left ventricular systolic function is normal. The estimated ejection fraction is 55 %. Small pericardial effusion. There are no echocardiographic indications of cardiac tamponade. Moderate size left pleural effusion. No ventricular thrombus is noted. Contrast injection was performed. Ordering Physician: Jason Mcdonald Referring Physician: Joyce Vaca Performed By: Lissa Ramos, ALISA, RVT Rhythm Strip Rhythm Strip: A-fib Rate: 99 Ectopy: None Physical Exam Const Constitutional Narrative: Does follow some simple commands General Appearance: patient mechanically ventilated Exam Limitations: altered mental status Nutritional Appearance: obese centrally obese HEENT normocephalic Eyes PERRL and EOMs intact bilaterally Eyes Narrative: Scleral injection noted Neck full ROM and supple Chest inspection of chest normal Resp Auscultation: diminished lung sounds; Negative for rales, rhonchi or wheezes Cardio regular rate, regular rhythm, S1 normal heart sound, S2 normal heart sound, no murmurs, no rub and no gallops Rate: tachycardic Rhythm: abnormal rhythm irregularly irregular GI normal to inspection, nondistended, normoactive bowel sounds and soft to palpation Extremity General Extremity: edema; Negative for clubbing Skin General Skin Exam: venous stasis Psych Mood & Affect: flat affect Charges/Coding Procedures Hospitalists Procedures: [address] [facility]
[2022-07-09] MEDS: Amiodarone 360 MG in Dextrose 5% Viaflo Bag 192.8 ML 16.7 MG CONT INF ×2 (09:46→22:12)
[2022-07-09] MEDS: Propofol 10MG/Ml 1,000 MG/100 ML Bottle 6.1 MG CONT INF ×2 (09:47→23:45)
[2022-07-09] MEDS: Docusate Sodium 100 MG/10 ML UDC GT ×2 (09:53→21:13)
[2022-07-09] MEDS: Aspirin 81 MG TAB.CHEW GT (09:54)
[2022-07-09] MEDS: Famotidine 20 MG Tablet GT (09:54)
[2022-07-09] MEDS: Vital AF 1.2 Cal Liquid 1,000 ML 60 ML GT (10:04)
[2022-07-09] MEDS: Chlorhexidine 15 ML PO ×2 (10:06→21:13)
--- NOTE | 2022-07-09 10:22 | PCM.PN.HOSP ---
Subjective Subjective Follow-up on acute respiratory failure/Hyperkalemia/NSTEMI: Patient was seen and examined.? Patient is awake, still intubated, tracks with his eyes. He remains in A. fib with RVR. He is off Lovenox, hemoptysis persists but appears to have improved. Objective Data Objective Data Vital Signs: Vital Signs Temp Pulse Resp BP Pulse Ox O2 Del Method O2 Flow Rate 97.7 F L 101 H 12 89/62 L 95 Mechanical Ventilator 2 07/09/22 08:00 07/09/22 09:00 07/09/22 09:00 07/09/22 09:00 07/09/22 09:00 07/09/22 09:00 07/08/22 08:00 FiO2 30 07/09/22 09:00 Oxygen Flow Rate (L/min) 2 Oxygen Delivery Method Mechanical Ventilator Weight: 102.7 kg Body Mass Index (BMI) 31.3 Intake & Output: Intake and Output for Last 24 Hours 07/07/22 07/08/22 07/09/22 23:59 23:59 23:59 Intake Total 972.64 / 1095.47 2496.20 / 2534.80 1215.68 / 1215.68 Output Total 505 / 855 1150 / 1150 400 / 400 Balance 467.64 / 240.47 1346.20 / 1384.80 815.68 / 815.68 Lab / Micro Data Result Diagrams: 07/09/22 04:10 07/09/22 04:10 Labs: Laboratory Results - last 24 hr 07/08/22 03:52: Total Creatine Kinase 75, Triglycerides 74 07/09/22 04:10: Sodium 133 L, Potassium 4.3, Chloride 92 L, Carbon Dioxide 36.0 H, Anion Gap 5, BUN 52 H, Creatinine 1.18, Estim Creat Clear Calc 46.60, Est GFR (MDRD) Af Amer 76, Est GFR (MDRD) Non-Af 62, BUN/Creatinine Ratio 44.1 H, Glucose 128 H, Calcium 7.9 L, Total Bilirubin 0.60, AST 26, ALT 18, Alkaline Phosphatase 60, Total Protein 5.0 L, Albumin 1.8 L, Globulin 3.2, Albumin/Globulin Ratio 0.6 L 07/09/22 04:10: WBC 11.4 H, RBC 3.50 L, Hgb 10.4 L, Hct 32.3 L, MCV 92.3 D, MCH 29.7, MCHC 32.2 D, RDW Std Deviation 45.5 H, RDW Coeff of Brent 13.6, Plt Count 278, MPV 8.4, Immature Gran % (Auto) 0.700, Neut % (Auto) 79.2 H, Lymph % (Auto) 7.9 L, [place] % (Auto) 11.3 H, Eos % (Auto) 0.7, Baso % (Auto) 0.2, Absolute Neuts (auto) 9.0 H, Absolute Lymphs (auto) 0.90, Nucleated RBC % 0 Micro: Microbiology 07/07/22 08:07 Urine Catheter - Catheter Urine Culture - Final Culture exhibits no growth. 07/07/22 08:15 Blood Culture (Wb) - Anticubital Left Blood Culture - Preliminary No growth in 48 hours. 07/07/22 08:05 Blood Culture (Wb) - Port Blood Culture - Preliminary No growth in 48 hours. 07/06/22 15:57 Sputum, Induced/Lukens Gram Stain - Final 07/06/22 15:57 Sputum, Induced/Lukens Respiratory Culture - Final Pseudomonas aeroginosa 07/03/22 12:53 Urine, Clean Catch Urine Culture - Final Culture exhibits no growth. 07/03/22 12:53 Urine, Clean Catch Legionella Antigen - Final 07/03/22 12:45 Urine, Clean Catch Streptococcus pneumoniae Antigen (M - Final Radiography Diagnostic Testing: Radiology Impression Echocardiogram 07/08/22 09:11 Interpretation Summary Normal LV size. Left ventricular systolic function is normal. The estimated ejection fraction is 55 %. Small pericardial effusion. There are no echocardiographic indications of cardiac tamponade. Moderate size left pleural effusion. No ventricular thrombus is noted. Contrast injection was performed. Ordering Physician: Jason Mcdonald Referring Physician: Joyce Vaca Performed By: Lissa Ramos, ALISA, RVT Rhythm Strip Rhythm Strip: A-fib Rate: 99 Ectopy: None Physical Exam Narrative Physical exam: General: Intubated, awake, on mechanical ventilator HEENT: Atraumatic, ET and OG tube in situ Oral: Moist Mucosa Neck: Supple Lungs: Diminished to auscultation, rhonchi Cardiovascular: HS I+II, regular, no murmurs Abdomen: Bowel Sounds Present, Soft, Non Tender Extremities: Bilateral leg edema +1 Skin: No rashes, No breakdown Neurological: Grossly intact Psych/Mental Status: Appropriate Assessment & Plan Assessment/Plan (1) Hyperkalemia: (2) Pneumonia: (3) Acute respiratory failure with hypoxia: PLAN: Plan 1. Acute hypoxic respiratory failure secondary to acute Pseudomonal pneumonia, S/p intubation on 07/06/22, reintubated 07/08/22 Hemoptyis is improving; off Lovenox for 24 hours Holding off Lovenox for more than 48 hours Continue on current mechanical ventilator settings 3. Acute metabolic encephalopathy, multifactorial, s/p intubation Will evaluate after extubation 4. A. fib with RVR, back in RVR, continue on amiodarone GT, therapeutic Lovenox 5. Hyponatremia, acute, improved to 130 Continue to trend. Nephrology following 6. Acute non-STEMI, likely type II, will continue to monitor Off beta-gabrielle on account of hypertension, off Lovenox 7. Heart failure with reduced EF, EF 25%, suspected LV apical thrombus on 06/16/22 Repeat 2d-echo yesterday was negative for acute LV thrombus Off Lovenox and Lasix for now 8. Acute urinary retention, status post Vang catheter placement 9. DVT prophylaxis?SCDs Charges/Coding Visit Charges Inpatient E&M: 32491 Subs Hosp L3
--- NOTE | 2022-07-09 18:48 | PN.RENAL_ITS ---
Subjective Subjective Following for BOB and electrolyte abnormalities. The patient remains on ventilator. He is sedated. Cannot do ROS. Objective Data Objective Data Vital Signs: Vital Signs Temp Pulse Resp BP Pulse Ox O2 Del Method O2 Flow Rate 97.3 F L 99 11 L 102/74 96 Mechanical Ventilator 2 07/09/22 16:00 07/09/22 17:00 07/09/22 17:00 07/09/22 17:00 07/09/22 17:00 07/09/22 17:00 07/08/22 08:00 FiO2 30 07/09/22 17:00 Oxygen Flow Rate (L/min) 2 Oxygen Delivery Method Mechanical Ventilator Weight: 102.7 kg Body Mass Index (BMI) 31.3 Intake & Output: Intake and Output for Last 24 Hours 07/07/22 07/08/22 07/09/22 23:59 23:59 23:59 Intake Total 972.64 / 1095.47 2496.20 / 2534.80 1560.51 / 1560.51 Output Total 505 / 855 1150 / 1150 1075 / 1075 Balance 467.64 / 240.47 1346.20 / 1384.80 485.51 / 485.51 Lab / Micro Data Result Diagrams: 07/09/22 04:10 07/09/22 04:10 Labs: Laboratory Results - last 24 hr 07/09/22 04:10: Sodium 133 L, Potassium 4.3, Chloride 92 L, Carbon Dioxide 36.0 H, Anion Gap 5, BUN 52 H, Creatinine 1.18, Estim Creat Clear Calc 46.60, Est GFR (MDRD) Af Amer 76, Est GFR (MDRD) Non-Af 62, BUN/Creatinine Ratio 44.1 H, Glucose 128 H, Calcium 7.9 L, Total Bilirubin 0.60, AST 26, ALT 18, Alkaline Phosphatase 60, Total Protein 5.0 L, Albumin 1.8 L, Globulin 3.2, Albumin/Globulin Ratio 0.6 L 07/09/22 04:10: WBC 11.4 H, RBC 3.50 L, Hgb 10.4 L, Hct 32.3 L, MCV 92.3 D, MCH 29.7, MCHC 32.2 D, RDW Std Deviation 45.5 H, RDW Coeff of Brent 13.6, Plt Count 278, MPV 8.4, Immature Gran % (Auto) 0.700, Neut % (Auto) 79.2 H, Lymph % (Auto) 7.9 L, [place] % (Auto) 11.3 H, Eos % (Auto) 0.7, Baso % (Auto) 0.2, Absolute Neuts (auto) 9.0 H, Absolute Lymphs (auto) 0.90, Nucleated RBC % 0 Micro: Microbiology 07/07/22 08:07 Urine Catheter - Catheter Urine Culture - Final Culture exhibits no growth. 07/07/22 08:15 Blood Culture (Wb) - Anticubital Left Blood Culture - Preliminary No growth in 48 hours. 07/07/22 08:05 Blood Culture (Wb) - Port Blood Culture - Preliminary No growth in 48 hours. 07/06/22 15:57 Sputum, Induced/Lukens Gram Stain - Final 07/06/22 15:57 Sputum, Induced/Lukens Respiratory Culture - Final Pseudomonas aeroginosa 07/03/22 12:53 Urine, Clean Catch Urine Culture - Final Culture exhibits no growth. 07/03/22 12:53 Urine, Clean Catch Legionella Antigen - Final 07/03/22 12:45 Urine, Clean Catch Streptococcus pneumoniae Antigen (M - Final Rhythm Strip Rhythm Strip: A-fib Rate: 99 Ectopy: None Physical Exam Narrative Const: On vent. No apparent distress Cardio: Normal S1, S2, rate controlled Respiratory: No audible wheezes, rhonchi or rales. Diminished breath sounds bases GI: Abdomen soft, positive bowel sounds, rounded Extremities: generalized non-pitting edema b/l lower legs. Trace edema arms Indwelling Vang with clear urine in bag Const General Appearance: well developed, frail and on BiPAP Orientation / Consciousness: other Other Details: does not participate in the conversation but moving appropriately Exam Limitations: behavioral limitations Nutritional Appearance: overweight HEENT normocephalic Eyes no scleral icterus General Eye: normal appearance of both eyes Neck supple and no carotid bruits Carotids: bruit Lymph Lymphatic: no lymphadenopathy noted Resp clear to auscultation bilaterally Auscultation: diminished lung sounds Cardio Cardio Narrative: irregular rhythm, tachycardic Rhythm: abnormal rhythm GI soft to palpation, non-tender and no masses Auscultation: normoactive bowel sounds Skin no rashes or lesions noted Assessment & Plan Assessment/Plan (1) BOB (acute kidney injury): PLAN: -Non-oliguirc BOB likely from decreased renal perfusion from hypotension. Patient's bps improved with pressor support. Now off pressors. History of normal baseline SCr. - On 07/06 SCr vince to 1.64 mg/dL, on 07/07 SCr 1.62 mg/dL, serum creatinine 1.22 mg/dL yesterday. -Renal function has improved further with volume expansion, and serum creatinine is down to 1.18 mg/dL today. -Continue to hold Lasix and ARB for now. -No acute indication for [employer]. Urine output has been good in the last 2 days.. -No acute indication for [employer] at this time as renal function is improving. Continue to monitor renal function closely as he is at risk for recurrent BOB. (2) Hyponatremia: PLAN: -Bowlegs to be secondary to decreased effective blood volume from diuresis and decreased oral solute intake. Sodium marilu 124 (on admission, 07/03). Off Lasix. Sodium has increased to 133 today. (3) Hyperkalemia: PLAN: -Hyperkalemia is resolving with improvement in renal function. - Potassium was as high as 7.5 on 07/05/2022. Today K+ is 4.3. -Continue to hold ARB for now. (4) Pneumonia: PLAN: - On IV antibiotics as per hospital medicine and critical care team. -The patient remains on ventilator after brief period of extubation yesterday. (5) Acute respiratory failure with hypoxia: PLAN: - on vent 07/06. Patient was successfully extubated yesterday, but had hemoptysis, became tachycardic and went into A. fib with RVR therefore he was reintubated again. -Ventilator management as per critical care service. (6) Atrial fibrillation with rapid ventricular response: PLAN: - Amiodarone drip. Heart rate is controlled today.
[2022-07-09] MEDS: 0.9% Saline Lock 10 ML Syringe IV (21:13)
[2022-07-09] MEDS: Atorvastatin Calcium 40 MG Tablet GT (21:13)
[2022-07-10] VITALS (40 sets, daily range): BP systolic 81–133; BP diastolic 45–83; PULSE 52–115; RESP 10–24; TEMP 35.9–36.6; O2SAT 90–100
[2022-07-10] MEDS: Vital AF 1.2 Cal Liquid 1,000 ML 60 ML GT ×2 (02:44→22:20)
[2022-07-10] MEDS: Ipratropium/Albuterol Sulfate 3 ML AMPUL.NEB INHALATION ×6 (03:46→22:57)
[2022-07-10 04:43] LABS: Absolute Lymphocyte Count 0.96 X10^3/uL (0.83-4.51); Absolute Neutrophil Count 10.1 X10^3/uL (2.0-7.7); Basophil# 0.02 X10^3/uL; Basophil% 0.2 % (0-1); Eosinophil# 0.09 X10^3/uL; Eosinophils% 0.7 % (0-5); Hematocrit 34.4 % (40-54); Hemoglobin 10.9 g/dL (13.0-16.5); Lymphocyte # 0.96 X10^3/ul (0.83-4.51); Lymphocyte % 7.5 % (19-41); Mean Corp Hgb Conc 31.7 g/dL (32-36); Mean Corpuscular Hgb 29.1 pg (27.0-32.0); Mean Corpuscular Volume 91.7 fL (80-94); Mean Platelet Vol. 8.7 fl (6.2-12.0); Monocyte# 1.55 X10^3/uL; Monocyte% 12.1 % (0-10); NRBC Flagged by Analyzer 0 % (0-5); Neutrophil # 10.14 X10^3/uL (2.7-7.7); POSITIVE DIFFERENTIAL YES; Platelet Count 292 K/mm3 (150-450); RBC Distribution Width CV 13.6 % (11.6-14.6); RBC Distribution Width SD 45.7 fl (35.1-43.9); Red Blood Count 3.75 M/mm3 (4.6-6.2); White Blood Count 12.8 K/mm3 (4.4-11.0)
[2022-07-10 04:44] LABS: Differential Indicated SCAN CRITERIA MET
[2022-07-10 04:58] LABS: Anion Gap 4 (5-15); BUN 42 mg/dL (7-18); BUN/Creat Ratio 44.3 RATIO (10-20); Calcium,Total 7.6 mg/dL (8.5-10.1); Chloride 93 mmol/L (98-107); Creatinine, Serum 0.95 mg/dL (0.70-1.30); EST Glomerular Filtration Rate 80 mL/min (>60); Est Glom Filt Rate - Afr Amer 97 mL/min (>60); Estimated Creatinine Clearance 57.88 ml/min; Glucose 114 mg/dL (74-106); Potassium 4.5 mmol/L (3.5-5.1); Sodium Level 132 mmol/L (136-145)
[2022-07-10 05:09] LABS: Differential Comment SCANNED
[2022-07-10] MEDS: 0.9% Saline Lock 10 ML Syringe IV ×2 (06:19→23:55)
[2022-07-10] MEDS: TITRATION PARAMETER CHANGE 1 EACH IV (06:19)
--- NOTE | 2022-07-10 07:14 | PCM.PN.INT ---
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 Clarify CODE STATUS before extubation 2. Continue cefepime 3. Continue amiodarone. Likely transition to 200 p.o./NG tomorrow 4. Potential diuretic challenge if blood pressures improve 5. Wean supplemental oxygen as tolerated IMPRESSIONS: 1. Acute combined respiratory failure secondary to pseudomonal pneumonia Patient with a metabolic and respiratory component of acidosis with poor compensation. Patient also with findings consistent with volume overloaded, probably from CHF leading to increased AA gradient. We will transition patient to cefepime from Levaquin secondary to concerns with QT interval on amiodarone. LV thrombus does not appear to be present at this time. Patient appears to have responded to holding of anticoagulation. Still with rust colored sputum. We will attempt to clarify CODE STATUS before extubation. 2. Sepsis Probable pneumonia source. Patient did have significant hyperkalemia and hyponatremia. Patient also with significant acidosis. Some concern for sepsis, so antibiotics will be broadened. Patient is showing endorgan damage with respiratory failure, acute kidney injury and encephalopathy. Blood pressures have remained marginal, limiting ability to diurese 3. Hyponatremia/hyperkalemia Improved. Clinical suspicion for hyperkalemia secondary to a component of acidosis. Unclear if patient's hyponatremia represents a paraneoplastic syndrome given melanoma. Patient may have an element of RTA also. 4. Acute on chronic systolic CHF with suspected left ventricular thrombus Patient initially appeared to be in an acute exacerbation secondary to A. fib with RVR. Patient does have a history of left ventricular apical thrombus, but this was not present on recent echocardiogram. We will hold anticoagulation for 48 hours given hemoptysis. Patient has been in sinus rhythm this morning. Clinical suspicion for metabolic encephalopathy, but cannot exclude migration of clot. Patient is not showing any focal neurologic signs at this time, but may need a CT of the head in the future if not improving after control of acidosis and hypercarbia. 5. Acute urinary retention/metastatic melanoma/advanced age/obesity/BPH CODE STATUS confirmed with patient's . Patient is a full code despite difficulties with previous chemotherapy. Patient has a Vang in place, but will likely need a voiding trial prior to discharge TIME: 33 minutes critical care time spent addressing patient's acute respiratory failure, hypotension, CHF, urinary retention, review of all data and collaboration with care team Subjective Subjective Patient did well overnight. No acute issues were reported. Patient has remained hemodynamically stable. Nursing and respiratory are reporting rust colored secretions. Patient has been tolerating tube feeds. Patient was able to tolerate a spontaneous breathing trial this morning without issue. Objective Data Objective Data Vital Signs: Vital Signs Temp Pulse Resp BP Pulse Ox O2 Del Method O2 Flow Rate 36.2 C L 76 12 133/60 H 100 Mechanical Ventilator 30 07/10/22 03:00 07/10/22 07:01 07/10/22 07:01 07/10/22 07:00 07/10/22 07:01 07/10/22 07:00 07/09/22 19:00 FiO2 30 07/10/22 07:01 Oxygen Flow Rate (L/min) 30 Oxygen Delivery Method Mechanical Ventilator Weight: 104.4 kg Body Mass Index (BMI) 31.3 Intake & Output: Intake and Output for Last 24 Hours 07/08/22 07/09/22 07/10/22 23:59 23:59 23:59 Intake Total 2496.20 / 2534.80 1849.25 / 2708.48 1411.66 / 1411.66 Output Total 1150 / 1150 1075 / 1325 450 / 450 Balance 1346.20 / 1384.80 774.25 / 1383.48 961.66 / 961.66 Lab / Micro Data Attestation: I reviewed the patient's lab results. Result Diagrams: 07/10/22 04:37 07/10/22 04:37 Labs: Laboratory Results - last 24 hr 07/10/22 04:37: WBC 12.8 H, RBC 3.75 L, Hgb 10.9 L, Hct 34.4 L, MCV 91.7, MCH 29.1, MCHC 31.7 L, RDW Std Deviation 45.7 H, RDW Coeff of Brent 13.6, Plt Count 292, MPV 8.7, Immature Gran % (Auto) 0.500, Neut % (Auto) 79.0 H, Lymph % (Auto) 7.5 L, [place] % (Auto) 12.1 H, Eos % (Auto) 0.7, Baso % (Auto) 0.2, Absolute Neuts (auto) 10.1 H, Absolute Lymphs (auto) 0.96, Nucleated RBC % 0, Differential Comment SCANNED, Diff Path Review December07/10/22 04:37: Sodium 132 L, Potassium 4.5, Chloride 93 L, Carbon Dioxide 35.0 H, Anion Gap 4 L, BUN 42 H, Creatinine 0.95, Estim Creat Clear Calc 57.88, Est GFR (MDRD) Af Amer 97, Est GFR (MDRD) Non-Af 80, BUN/Creatinine Ratio 44.3 H, Glucose 114 H, Calcium 7.6 L Micro: Microbiology 07/07/22 08:07 Urine Catheter - Catheter Urine Culture - Final Culture exhibits no growth. 07/07/22 08:15 Blood Culture (Wb) - Anticubital Left Blood Culture - Preliminary No growth in 48 hours. 07/07/22 08:05 Blood Culture (Wb) - Port Blood Culture - Preliminary No growth in 48 hours. 07/06/22 15:57 Sputum, Induced/Lukens Gram Stain - Final 07/06/22 15:57 Sputum, Induced/Lukens Respiratory Culture - Final Pseudomonas aeroginosa 07/03/22 12:53 Urine, Clean Catch Urine Culture - Final Culture exhibits no growth. 07/03/22 12:53 Urine, Clean Catch Legionella Antigen - Final 07/03/22 12:45 Urine, Clean Catch Streptococcus pneumoniae Antigen (M - Final Rhythm Strip Rhythm Strip: Sinus Rhythm Rate: 69 Ectopy: None Physical Exam Const Constitutional Narrative: Does follow some simple commands General Appearance: patient mechanically ventilated Nutritional Appearance: obese centrally obese HEENT normocephalic General Ear: hearing grossly impaired diffuse Eyes PERRL and EOMs intact bilaterally Neck full ROM and supple Chest inspection of chest normal Resp Auscultation: diminished lung sounds; Negative for rales, rhonchi or wheezes Cardio regular rate, regular rhythm, S1 normal heart sound, S2 normal heart sound, no murmurs, no rub and no gallops GI normal to inspection, nondistended, normoactive bowel sounds and soft to palpation Extremity General Extremity: edema; Negative for clubbing Skin Skin Narrative: Initial cyanosis improved following intubation General Skin Exam: venous stasis Neuro Sensorium / Orientation: sedated on vent Psych Mood & Affect: flat affect Charges/Coding Procedures Hospitalists Procedures: 55966 Critial Care 1st Hr
--- NOTE | 2022-07-10 07:19 | PN.HOSP_ITS ---
Subjective Subjective Follow-up on acute respiratory failure/Hyperkalemia/NSTEMI: Patient was seen and examined.? Patient is more awake and interactive. He is still intubated, tracks with his eyes.?Hemoptysis is much improved. Objective Data Objective Data Vital Signs: Vital Signs Temp Pulse Resp BP Pulse Ox O2 Del Method O2 Flow Rate 97.1 F L 76 12 133/60 H 100 Mechanical Ventilator 30 07/10/22 03:00 07/10/22 07:01 07/10/22 07:01 07/10/22 07:00 07/10/22 07:01 07/10/22 07:00 07/09/22 19:00 FiO2 30 07/10/22 07:01 Oxygen Flow Rate (L/min) 30 Oxygen Delivery Method Mechanical Ventilator Weight: 104.4 kg Body Mass Index (BMI) 31.3 Intake & Output: Intake and Output for Last 24 Hours 07/08/22 07/09/22 07/10/22 23:59 23:59 23:59 Intake Total 2496.20 / 2534.80 1849.25 / 2708.48 1411.66 / 1411.66 Output Total 1150 / 1150 1075 / 1325 450 / 450 Balance 1346.20 / 1384.80 774.25 / 1383.48 961.66 / 961.66 Lab / Micro Data Result Diagrams: 07/10/22 04:37 07/10/22 04:37 Labs: Laboratory Results - last 24 hr 07/10/22 04:37: WBC 12.8 H, RBC 3.75 L, Hgb 10.9 L, Hct 34.4 L, MCV 91.7, MCH 29.1, MCHC 31.7 L, RDW Std Deviation 45.7 H, RDW Coeff of Brent 13.6, Plt Count 292, MPV 8.7, Immature Gran % (Auto) 0.500, Neut % (Auto) 79.0 H, Lymph % (Auto) 7.5 L, [place] % (Auto) 12.1 H, Eos % (Auto) 0.7, Baso % (Auto) 0.2, Absolute Neuts (auto) 10.1 H, Absolute Lymphs (auto) 0.96, Nucleated RBC % 0, Differential Comment SCANNED, Diff Path Review December07/10/22 04:37: Sodium 132 L, Potassium 4.5, Chloride 93 L, Carbon Dioxide 35.0 H, Anion Gap 4 L, BUN 42 H, Creatinine 0.95, Estim Creat Clear Calc 57.88, Est GFR (MDRD) Af Amer 97, Est GFR (MDRD) Non-Af 80, BUN/Creatinine Ratio 44.3 H, Glucose 114 H, Calcium 7.6 L Micro: Microbiology 07/07/22 08:07 Urine Catheter - Catheter Urine Culture - Final Culture exhibits no growth. 07/07/22 08:15 Blood Culture (Wb) - Anticubital Left Blood Culture - Preliminary No growth in 48 hours. 07/07/22 08:05 Blood Culture (Wb) - Port Blood Culture - Preliminary No growth in 48 hours. 07/06/22 15:57 Sputum, Induced/Lukens Gram Stain - Final 07/06/22 15:57 Sputum, Induced/Lukens Respiratory Culture - Final Pseudomonas aeroginosa 07/03/22 12:53 Urine, Clean Catch Urine Culture - Final Culture exhibits no growth. 07/03/22 12:53 Urine, Clean Catch Legionella Antigen - Final 07/03/22 12:45 Urine, Clean Catch Streptococcus pneumoniae Antigen (M - Final Rhythm Strip Rhythm Strip: Sinus Rhythm Rate: 99 Ectopy: None Physical Exam Narrative Physical exam: General: Intubated, awake, on mechanical ventilator HEENT: Atraumatic, ET and OG tube in situ Oral: Moist Mucosa Neck: Supple Lungs: Diminished to auscultation, rhonchi Cardiovascular: HS I+II, regular, no murmurs Abdomen: Bowel Sounds Present, Soft, Non Tender Extremities: Bilateral leg edema +1 Skin: No rashes, No breakdown Neurological: Grossly intact Psych/Mental Status: Appropriate Assessment & Plan Assessment/Plan (1) Hyperkalemia: (2) Pneumonia: (3) Acute respiratory failure with hypoxia: PLAN: Plan 1. Acute hypoxic respiratory failure secondary to acute Pseudomonal pneumonia, S/p intubation on 07/06/22, reintubated 07/08/22 Hemoptysis is improving; off Lovenox for 48 hours Continue on cefepime IV Continue on current mechanical ventilator settings 3. Acute metabolic encephalopathy, multifactorial, s/p intubation Will evaluate after extubation 4. A. fib with RVR, resolved, continue on amiodarone GT, therapeutic Lovenox 5. Hyponatremia, acute, improved to 132 Continue to trend. Nephrology following 6. Acute non-STEMI, likely type II, will continue to monitor Off beta-gabrielle on account of hypertension, off Lovenox 7. Heart failure with reduced EF, EF 25%, suspected LV apical thrombus on 06/16/22 Repeat 2d-echo yesterday was negative for acute LV thrombus Off Lovenox and Lasix for now 8. Acute urinary retention, status post Vang catheter placement 9. DVT prophylaxis?SCDs Charges/Coding Visit Charges Inpatient E&M: 51563 Subs Hosp L3
[2022-07-10] MEDS: Docusate Sodium 100 MG/10 ML UDC GT ×2 (08:14→21:35)
[2022-07-10] MEDS: Famotidine 20 MG Tablet GT (08:14)
[2022-07-10] MEDS: Aspirin 81 MG TAB.CHEW GT (08:15)
[2022-07-10] MEDS: CHLORHEXIDINE GLUC 2% CLOTH 1 EACH TOWELETTE TOPICAL (08:16)
[2022-07-10] MEDS: Chlorhexidine 15 ML PO ×2 (08:18→21:35)
[2022-07-10] MEDS: Amiodarone 360 MG in Dextrose 5% Viaflo Bag 192.8 ML 16.7 MG CONT INF (10:58)
[2022-07-10] MEDS: Propofol 10MG/Ml 1,000 MG/100 ML Bottle 6.3 MG CONT INF ×3 (12:09→23:51)
[2022-07-10 13:32] LABS: Pathologist Review Reviewed
--- NOTE | 2022-07-10 20:07 | PCM.PN.REN ---
Subjective Subjective Following for BOB and electrolyte abnormalities. The patient remains on ventilator.? He is awake and follows some command.? Cannot do ROS. Objective Data Objective Data Vital Signs: Vital Signs Temp Pulse Resp BP Pulse Ox O2 Del Method O2 Flow Rate 97.1 F L 61 10 L 105/64 92 Mechanical Ventilator 30 07/10/22 12:00 07/10/22 19:00 07/10/22 18:00 07/10/22 18:00 07/10/22 18:00 07/10/22 18:00 07/09/22 19:00 FiO2 30 07/10/22 18:00 Oxygen Flow Rate (L/min) 30 Oxygen Delivery Method Mechanical Ventilator Weight: 104.4 kg Body Mass Index (BMI) 31.3 Intake & Output: Intake and Output for Last 24 Hours 07/08/22 07/09/22 07/10/22 23:59 23:59 23:59 Intake Total 2496.20 / 2534.80 1849.25 / 2708.48 2035.72 / 2035.72 Output Total 1150 / 1150 1075 / 1325 900 / 900 Balance 1346.20 / 1384.80 774.25 / 1383.48 1135.72 / 1135.72 Lab / Micro Data Result Diagrams: 07/10/22 04:37 07/10/22 04:37 Labs: Laboratory Results - last 24 hr 07/10/22 04:37: WBC 12.8 H, RBC 3.75 L, Hgb 10.9 L, Hct 34.4 L, MCV 91.7, MCH 29.1, MCHC 31.7 L, RDW Std Deviation 45.7 H, RDW Coeff of [place] 13.6, Plt Count 292, MPV 8.7, Immature Gran % (Auto) 0.500, Neut % (Auto) 79.0 H, Lymph % (Auto) 7.5 L, [place] % (Auto) 12.1 H, Eos % (Auto) 0.7, Baso % (Auto) 0.2, Absolute Neuts (auto) 10.1 H, Absolute Lymphs (auto) 0.96, Nucleated RBC % 0, Differential Comment SCANNED, Diff Path Review Reviewed 07/10/22 04:37: Sodium 132 L, Potassium 4.5, Chloride 93 L, Carbon Dioxide 35.0 H, Anion Gap 4 L, BUN 42 H, Creatinine 0.95, Estim Creat Clear Calc 57.88, Est GFR (MDRD) Af Amer 97, Est GFR (MDRD) Non-Af 80, BUN/Creatinine Ratio 44.3 H, Glucose 114 H, Calcium 7.6 L Micro: Microbiology 07/07/22 08:07 Urine Catheter - Catheter Urine Culture - Final Culture exhibits no growth. 07/07/22 08:15 Blood Culture (Wb) - Anticubital Left Blood Culture - Preliminary No growth in 48 hours. 07/07/22 08:05 Blood Culture (Wb) - Port Blood Culture - Preliminary No growth in 48 hours. 07/06/22 15:57 Sputum, Induced/Lukens Gram Stain - Final 07/06/22 15:57 Sputum, Induced/Lukens Respiratory Culture - Final Pseudomonas aeroginosa 07/03/22 12:53 Urine, Clean Catch Urine Culture - Final Culture exhibits no growth. 07/03/22 12:53 Urine, Clean Catch Legionella Antigen - Final 07/03/22 12:45 Urine, Clean Catch Streptococcus pneumoniae Antigen (M - Final Rhythm Strip Rhythm Strip: Sinus Rhythm Rate: 69 Ectopy: None Physical Exam Narrative Const: On vent. No apparent distress Cardio: Normal S1, S2, rate controlled Respiratory: No audible wheezes, rhonchi or rales. Diminished breath sounds bases GI: Abdomen soft, positive bowel sounds, rounded Extremities: generalized non-pitting edema b/l lower legs. Trace edema arms Indwelling Vang with clear urine in bag Const General Appearance: well developed, frail and on BiPAP Orientation / Consciousness: other Other Details: does not participate in the conversation but moving appropriately Exam Limitations: behavioral limitations Nutritional Appearance: overweight HEENT normocephalic Eyes no scleral icterus General Eye: normal appearance of both eyes Neck supple and no carotid bruits Carotids: bruit Lymph Lymphatic: no lymphadenopathy noted Resp clear to auscultation bilaterally Auscultation: diminished lung sounds Cardio Cardio Narrative: irregular rhythm, tachycardic Rhythm: abnormal rhythm GI soft to palpation, non-tender and no masses Auscultation: normoactive bowel sounds Skin no rashes or lesions noted Assessment & Plan Assessment/Plan (1) BOB (acute kidney injury): PLAN: -Non-oliguirc BOB likely from decreased renal perfusion from hypotension. Patient's bps improved with pressor support. Now off pressors. History of normal baseline SCr. - On 07/06 SCr vince to 1.64 mg/dL, on 07/07 SCr 1.62 mg/dL, serum creatinine 1.22 mg/dL on 07/08/2022. -Renal function has improved further with volume expansion, and serum creatinine is down to 0.95 mg/dL today. -The patient remains off Lasix and losartan. -Okay to restart Lasix from nephrology standpoint if needed since renal function has returned to normal. However, BP is still soft. -Continue to monitor renal function closely as he is at risk for recurrent BOB. (2) Hyponatremia: PLAN: -[place] to be secondary to decreased effective blood volume from diuresis and decreased oral solute intake. Sodium marilu 124 (on admission, 07/03). Off Lasix. -Sodium is still low but stable at 132 mmol/L today. (3) Hyperkalemia: PLAN: -Hyperkalemia has resolved with improvement in renal function. - Potassium was as high as 7.5 on 07/05/2022. Today K+ is 4.5. -Still off of ARB, mainly because of soft BP. (4) Pneumonia: PLAN: - On IV antibiotics as per hospital medicine and critical care team. -The patient remains on ventilator after brief period of extubation on 07/08/2022. -May be extubated again tomorrow per my discussion with RN today. (5) Acute respiratory failure with hypoxia: PLAN: - on vent 07/06. Patient was successfully extubated on 07/08/2022, but had hemoptysis, became tachycardic and went into A. fib with RVR therefore he was reintubated again. -Ventilator management as per critical care service. (6) Atrial fibrillation with rapid ventricular response: PLAN: - Amiodarone drip. Heart rate is controlled today.
[2022-07-10] MEDS: Atorvastatin Calcium 40 MG Tablet GT (21:35)
[2022-07-10] MEDS: Amiodarone 200 MG Tablet 100 MG PO (23:43)
[2022-07-11] VITALS (38 sets, daily range): BP systolic 90–180; BP diastolic 44–88; PULSE 56–82; RESP 10–27; TEMP 35.9–37.3; O2SAT 84–100
[2022-07-11 05:00] LABS: Absolute Lymphocyte Count 0.97 X10^3/uL (0.83-4.51); Absolute Neutrophil Count 9.5 X10^3/uL (2.0-7.7); Basophil# 0.03 X10^3/uL; Basophil% 0.2 % (0-1); Eosinophil# 0.13 X10^3/uL; Hematocrit 31.7 % (40-54); Lymphocyte # 0.97 X10^3/ul (0.83-4.51); Lymphocyte % 7.8 % (19-41); Mean Corp Hgb Conc 31.5 g/dL (32-36); Mean Corpuscular Volume 91.9 fL (80-94); Mean Platelet Vol. 8.4 fl (6.2-12.0); Monocyte# 1.69 X10^3/uL; Monocyte% 13.6 % (0-10); NRBC Flagged by Analyzer 0 % (0-5); Neutrophil # 9.49 X10^3/uL (2.7-7.7); Neutrophil % 76.8 % (47-70); POSITIVE DIFFERENTIAL YES; Platelet Count 294 K/mm3 (150-450); RBC Distribution Width CV 13.9 % (11.6-14.6); RBC Distribution Width SD 46.5 fl (35.1-43.9); Red Blood Count 3.45 M/mm3 (4.6-6.2); White Blood Count 12.4 K/mm3 (4.4-11.0)
[2022-07-11 05:11] LABS: Anion Gap 2 (5-15); BUN 50 mg/dL (7-18); BUN/Creat Ratio 46.7 RATIO (10-20); Calcium,Total 7.6 mg/dL (8.5-10.1); Chloride 94 mmol/L (98-107); Creatinine, Serum 1.07 mg/dL (0.70-1.30); EST Glomerular Filtration Rate 70 mL/min (>60); Est Glom Filt Rate - Afr Amer 85 mL/min (>60); Estimated Creatinine Clearance 51.39 ml/min; Glucose 109 mg/dL (74-106); Potassium 4.8 mmol/L (3.5-5.1); Sodium Level 133 mmol/L (136-145)
[2022-07-11 05:25] LABS: Differential Indicated SCAN CRITERIA MET
[2022-07-11 05:50] LABS: Allen Test Negative; Base Excess 8 mmol/L (-2 to +2); Bicarbonate 32.8 mmol/L (22-26); Blood Gas Specimen Type ART; FI02 30; Mode CPAP/PS; O2 Delivery Device ET Tube; PEEP 5; PO2 73 mmHG (75-100); PS 5; SITE R Radial; SO2 94 % (95-99); Total Carbon Dioxide 34 mmol/L; pCO2 51.2 mmHg (35-45); pH 7.41 (7.35-7.45)
[2022-07-11] MEDS: TITRATION PARAMETER CHANGE 1 EACH IV (06:29)
[2022-07-11] MEDS: CHLORHEXIDINE GLUC 2% CLOTH 1 EACH TOWELETTE TOPICAL (06:29)
[2022-07-11 06:31] LABS: Differential Comment SCANNED
[2022-07-11] MEDS: Amiodarone 200 MG Tablet PO (06:38)
[2022-07-11] MEDS: Aspirin 81 MG TAB.CHEW GT (06:38)
[2022-07-11] MEDS: 0.9% Saline Lock 10 ML Syringe IV ×4 (06:38→18:34)
[2022-07-11] MEDS: Famotidine 20 MG Tablet GT (06:38)
[2022-07-11] MEDS: Ipratropium/Albuterol Sulfate 3 ML AMPUL.NEB INHALATION ×3 (07:24→14:41)
--- NOTE | 2022-07-11 07:40 | PN.CC_ITS ---
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 Likely transition to DNR Comfort Care arrest without intubation 2. Continue cefepime to complete 10 days 3. Continue amiodarone p.o. at 200 mg 4. Defer diuretic challenge to nephrology 5. Wean supplemental oxygen as tolerated 6. Hold anticoagulation for 2 additional days IMPRESSIONS: 1. Acute combined respiratory failure secondary to pseudomonal pneumonia Patient with a metabolic and respiratory component of acidosis with poor compensation. Patient also with findings consistent with volume overloaded, probably from CHF leading to increased AA gradient. We will transition patient to cefepime from Levaquin secondary to concerns with QT interval on amiodarone. LV thrombus does not appear to be present at this time. Patient appears to have responded to holding of anticoagulation. Okay to proceed with extubation 2. Sepsis Probable pseudomonal pneumonia source. Patient did have significant hyperkalemia and hyponatremia. Patient also with significant acidosis. Some concern for sepsis, so antibiotics will be broadened. Patient is showing endo rgan damage with respiratory failure, acute kidney injury and encephalopathy. Blood pressures have remained marginal, limiting ability to diurese 3. Hyponatremia/hyperkalemia Improved. Clinical suspicion for hyperkalemia secondary to a component of acidosis. Unclear if patient's hyponatremia represents a paraneoplastic syndrome given melanoma. Patient may have an element of RTA also. 4. Acute on chronic systolic CHF with suspected left ventricular thrombus Patient initially appeared to be in an acute exacerbation secondary to A. fib with RVR. Patient does have a history of left ventricular apical thrombus, but this was not present on recent echocardiogram. We will hold anticoagulation for 48 hours given hemoptysis. Patient has been in sinus rhythm this morning. Clinical suspicion for metabolic encephalopathy, but cannot exclude migration of clot. Patient is not showing any focal neurologic signs at this time, but may need a CT of the head in the future if not improving after control of acidosis and hypercarbia. 5. Acute urinary retention/metastatic melanoma/advanced age/obesity/BPH CODE STATUS changed by patient's with the hospitalist. Patient has a Vang in place, but will likely need a voiding trial prior to discharge TIME: 32 minutes critical care time spent addressing patient's acute respiratory failure, hypotension, CHF, urinary retention, review of all data and collaboration with care team Subjective Subjective Patient did well overnight. No priyanka hemoptysis has been reported by staff. Patient is not reporting any pain at this time. Patient was able to pass a spontaneous breathing trial this morning. Objective Data Objective Data Vital Signs: Vital Signs Temp Pulse Resp BP Pulse Ox O2 Del Method O2 Flow Rate 36.7 C 68 22 H 132/48 H 93 Mechanical Ventilator 30 07/11/22 04:00 07/11/22 07:00 07/11/22 07:00 07/11/22 07:00 07/11/22 07:00 07/11/22 07:00 07/09/22 19:00 FiO2 30 07/11/22 07:00 Oxygen Flow Rate (L/min) 30 Oxygen Delivery Method Mechanical Ventilator Weight: 105.2 kg Body Mass Index (BMI) 31.3 Intake & Output: Intake and Output for Last 24 Hours 07/09/22 07/10/22 07/11/22 23:59 23:59 23:59 Intake Total 1849.25 / 2708.48 3201.12 / 3312.07 491.15 / 491.15 Output Total 1075 / 1325 900 / 1100 550 / 550 Balance 774.25 / 1383.48 2301.12 / 2212.07 -58.85 / -58.85 Lab / Micro Data Attestation: I reviewed the patient's lab results. Result Diagrams: 07/11/22 04:55 07/11/22 04:55 Labs: Laboratory Results - last 24 hr 07/10/22 04:37: Diff Path Review Reviewed 07/11/22 04:55: WBC 12.4 H, RBC 3.45 L, Hgb 10.0 L, Hct 31.7 L, MCV 91.9, MCH 29.0, MCHC 31.5 L, RDW Std Deviation 46.5 H, RDW Coeff of Brent 13.9, Plt Count 294, MPV 8.4, Immature Gran % (Auto) 0.600, Neut % (Auto) 76.8 H, Lymph % (Auto) 7.8 L, [place] % (Auto) 13.6 H, Eos % (Auto) 1.0, Baso % (Auto) 0.2, Absolute Neuts (auto) 9.5 H, Absolute Lymphs (auto) 0.97, Nucleated RBC % 0, Differential Comment SCANNED, Diff Path Review December07/11/22 04:55: Sodium 133 L, Potassium 4.8, Chloride 94 L, Carbon Dioxide 37.0 H, Anion Gap 2 L, BUN 50 H, Creatinine 1.07, Estim Creat Clear Calc 51.39, Est GFR (MDRD) Af Amer 85, Est GFR (MDRD) Non-Af 70, BUN/Creatinine Ratio 46.7 H, G lucose 109 H, Calcium 7.6 L Micro: Microbiology 07/07/22 08:07 Urine Catheter - Catheter Urine Culture - Final Culture exhibits no growth. 07/07/22 08:15 Blood Culture (Wb) - Anticubital Left Blood Culture - Preliminary No growth in 48 hours. 07/07/22 08:05 Blood Culture (Wb) - Port Blood Culture - Preliminary No growth in 48 hours. 07/06/22 15:57 Sputum, Induced/Lukens Gram Stain - Final 07/06/22 15:57 Sputum, Induced/Lukens Respiratory Culture - Final Pseudomonas aeroginosa 07/03/22 12:53 Urine, Clean Catch Urine Culture - Final Culture exhibits no growth. 07/03/22 12:53 Urine, Clean Catch Legionella Antigen - Final 07/03/22 12:45 Urine, Clean Catch Streptococcus pneumoniae Antigen (M - Final ABG Data ABG results: ABG 07/11/22 05:44 Specimen Type ART Sample Site R Radial pH 7.41 Bicarbonate Actual 32.8 H Total CO2 34 Base Excess 8 H O2 Saturation 94 L O2 % 30 ABG pCO2 51.2 H ABG pO2 73 L Constantino Test Negative O2 Delivery Device ET Tube Vent Mode CPAP/PS POC PEEP 5 POC Pressure Suppt 5 Rhythm Strip Rhythm Strip: Sinus Rhythm Rate: 65 Ectopy: None and - (Patient did have a period of third-degree heart block overnight that was transient) Physical Exam Const Constitutional Narrative: Does follow some simple commands General Appearance: patient mechanically ventilated Nutritional Appearance: obese centrally obese HEENT normocephalic General Ear: hearing grossly impaired diffuse Eyes PERRL and EOMs intact bilaterally Neck full ROM and supple Chest inspection of chest normal Resp Auscultation: diminished lung sounds; Negative for rales, rhonchi or wheezes Cardio regular rate, regular rhythm, S1 normal heart sound, S2 normal heart sound, no murmurs, no rub and no gallops GI normal to inspection, nondistended, normoactive bowel sounds and soft to palpation Extremity General Extremity: edema; Negative for clubbing Skin Skin Narrative: Initial cyanosis improved following intubation General Skin Exam: venous stasis Neuro Sensorium / Orientation: sedated on vent Psych Mood & Affect: flat affect Charges/Coding Procedures Hospitalists Procedures: 86389 Critial Care 1st Hr
--- NOTE | 2022-07-11 08:36 | PN.HOSP_ITS ---
Subjective Subjective Follow-up on acute respiratory failure/Hyperkalemia/NSTEMI: Patient was seen and examined.?Patient was extubated today. He is on 4L oxygen. He denied any chest pain or SOB. Objective Data Objective Data Vital Signs: Vital Signs Temp Pulse Resp BP Pulse Ox O2 Del Method O2 Flow Rate 98.1 F 68 22 H 132/48 H 93 Mechanical Ventilator 30 07/11/22 04:00 07/11/22 07:00 07/11/22 07:00 07/11/22 07:00 07/11/22 07:00 07/11/22 07:00 07/09/22 19:00 FiO2 30 07/11/22 07:00 Oxygen Flow Rate (L/min) 30 Oxygen Delivery Method Mechanical Ventilator Weight: 105.2 kg Body Mass Index (BMI) 31.3 Intake & Output: Intake and Output for Last 24 Hours 07/09/22 07/10/22 07/11/22 23:59 23:59 23:59 Intake Total 1849.25 / 2708.48 3201.12 / 3312.07 491.15 / 491.15 Output Total 1075 / 1325 900 / 1100 550 / 550 Balance 774.25 / 1383.48 2301.12 / 2212.07 -58.85 / -58.85 Lab / Micro Data Result Diagrams: 07/11/22 04:55 07/11/22 04:55 Labs: Laboratory Results - last 24 hr 07/10/22 04:37: Diff Path Review Reviewed 07/11/22 04:55: WBC 12.4 H, RBC 3.45 L, Hgb 10.0 L, Hct 31.7 L, MCV 91.9, MCH 29.0, MCHC 31.5 L, RDW Std Deviation 46.5 H, RDW Coeff of Brent 13.9, Plt Count 294, MPV 8.4, Immature Gran % (Auto) 0.600, Neut % (Auto) 76.8 H, Lymph % (Auto) 7.8 L, [place] % (Auto) 13.6 H, Eos % (Auto) 1.0, Baso % (Auto) 0.2, Absolute Neuts (auto) 9.5 H, Absolute Lymphs (auto) 0.97, Nucleated RBC % 0, Differential Comment SCANNED, Diff Path Review May 07/11/22 04:55: Sodium 133 L, Potassium 4.8, Chloride 94 L, Carbon Dioxide 37.0 H, Anion Gap 2 L, BUN 50 H, Creatinine 1.07, Estim Creat Clear Calc 51.39, Est GFR (MDRD) Af Amer 85, Est GFR (MDRD) Non-Af 70, BUN/Creatinine Ratio 46.7 H, Glucose 109 H, Calcium 7.6 L Micro: Microbiology 07/07/22 08:07 Urine Catheter - Catheter Urine Culture - Final Culture exhibits no growth. 07/07/22 08:15 Blood Culture (Wb) - Anticubital Left Blood Culture - Preliminary No growth in 48 hours. 07/07/22 08:05 Blood Culture (Wb) - Port Blood Culture - Preliminary No growth in 48 hours. 07/06/22 15:57 Sputum, Induced/Lukens Gram Stain - Final 07/06/22 15:57 Sputum, Induced/Lukens Respiratory Culture - Final Pseudomonas aeroginosa 07/03/22 12:53 Urine, Clean Catch Urine Culture - Final Culture exhibits no growth. 07/03/22 12:53 Urine, Clean Catch Legionella Antigen - Final 07/03/22 12:45 Urine, Clean Catch Streptococcus pneumoniae Antigen (M - Final ABG Data ABG results: ABG 07/11/22 05:44 Specimen Type ART Sample Site R Radial pH 7.41 Bicarbonate Actual 32.8 H Total CO2 34 Base Excess 8 H O2 Saturation 94 L O2 % 30 ABG pCO2 51.2 H ABG pO2 73 L Constantino Test Negative O2 Delivery Device ET Tube Vent Mode CPAP/PS POC PEEP 5 POC Pressure Suppt 5 Rhythm Strip Rhythm Strip: Sinus Rhythm Rate: 65 Ectopy: None and - (Patient did have a period of third-degree heart block overnight that was transient) Physical Exam Narrative Physical exam: General: Intubated, awake, on mechanical ventilator HEENT: Atraumatic, ET and OG tube in situ Oral: Moist Mucosa Neck: Supple Lungs: Diminished to auscultation, rhonchi Cardiovascular: HS I+II, regular, no murmurs Abdomen: Bowel Sounds Present, Soft, Non Tender Extremities: Bilateral leg edema +1 Skin: No rashes, No breakdown Neurological: Grossly intact Psych/Mental Status: Appropriate Assessment & Plan Assessment/Plan (1) Hyperkalemia: (2) Pneumonia: (3) Acute respiratory failure with hypoxia: PLAN: Plan 1. Acute hypoxic respiratory failure secondary to acute Pseudomonal pneumonia, resolved Extubated today 07/11/22. Patient initially was intubation on 07/06/22, extubated and reintubated after a few minutes on 07/08/22 on account of hemoptysis Patient is off Lovenox. No more gross hemoptysis. Continue on cefepime IV 2. Acute metabolic encephalopathy, improved back to baseline, alert oriented x3, hard of hearing 3. A. fib with RVR, in NSR, resolved, continue oral amiodarone, off anticoagulation 4. Hyponatremia, acute, improved to 133 Continue to trend. Nephrology following 5. Acute non-STEMI, likely type II, will continue to monitor Off beta-gabrielle on account of [id number], off Lovenox 6. Heart failure with reduced EF, EF 25%, suspected LV apical thrombus on 06/16 Repeat 2d-echo yesterday was negative for acute LV thrombus Off Lovenox and Lasix for now 7. Acute urinary retention, status post Vang catheter placement 8. DVT prophylaxis?SCDs Charges/Coding Visit Charges Inpatient E&M: 92246 Subs Hosp L3
--- NOTE | 2022-07-11 14:00 | NURSING ---
therapy present working w/pt, stood at bedside briefly then sat at on side of bedx2. returned to supine position. pt increasingly diaphoretic and entire body red. He has moderately gasping respers w/spO2 in low 70s. to 8lnc HOB 45. RT called and at bedside. Dr. Grace notified. orders recd.
--- NOTE | 2022-07-11 14:43 | RAD_ITS ---
STUDY: X-RAY CHEST REASON FOR EXAM: Male, 86 years old. Back pain SOB TECHNIQUE: XR Chest 1 View COMPARISON: 3 days ago. FINDINGS: There is atherosclerotic calcification of the aortic arch with tortuosity. There are diffuse degenerative changes of the visualized thoracic spine. There is degenerative osteoarthritis of the bilateral shoulders. There are bilateral pleural effusions. There are bilateral infiltrates. There is a right Port-A-Cath and/or mediport in place. The tip is in the superior vena caval - atrial junction. Normal size heart. Normal mediastinum and mila. Normal visualized pulmonary arteries. There is no demonstrated abnormality of the visualized soft tissue structures of the upper abdomen. RAD/Chest 1 View (Portable) IMPRESSION: Pulmonary findings appear worse. Electronically Signed: Rickie Capellan MD at 15:06 EST ,
[2022-07-11] MEDS: Furosemide 40 MG/4 ML Vial IV (15:04)
[2022-07-11 15:11] LABS: Allen Test Positive; Base Excess 8 mmol/L (-2 to +2); Bicarbonate 36.7 mmol/L (22-26); Blood Gas Specimen Type ART; O2 Delivery Device Cannula; PO2 84 mmHG (75-100); SITE R Radial; SO2 92 % (95-99); Total Carbon Dioxide 40 mmol/L; pCO2 99.1 mmHg (35-45); pH 7.18 (7.35-7.45)
--- NOTE | 2022-07-11 15:15 | CPS ---
Critical ABG given to dr Grace
[2022-07-11] MEDS: Racepinephrine HCl 0.5 ML VIAL.NEB. INHALATION (15:19)
[2022-07-11 15:45] LABS: Bedside Glucose 137 mg/dL (74-106)
--- NOTE | 2022-07-11 16:34 | NURSING ---
education regarding chronic illness deferred d/t end of life teaching
[2022-07-11] MEDS: MethylPREDNISolone 125 MG/2 ML Vial IV (17:05)
[2022-07-11] MEDS: Morphine 2 MG/ML Syringe 1 MG IV (18:34)
[2022-07-11] MEDS: morphine (oral solution) 10MG/0.5ML Syringe 5 MG SL/PO (20:08)
[2022-07-11] MEDS: Atropine Sulfate 1% 2 ml Bottle 4 DRP SL (20:09)
[2022-07-12] VITALS (9 sets, daily range): BP systolic 107–151; BP diastolic 50–71; PULSE 0–116; RESP 20–30; TEMP 36.8–37; O2SAT 39–98
[2022-07-12] MEDS: morphine (oral solution) 10MG/0.5ML Syringe 5 MG SL/PO ×4 (00:21→06:13)
[2022-07-12] MEDS: Atropine Sulfate 1% 2 ml Bottle 4 DRP SL (02:38)
[2022-07-12] MEDS: Haloperidol Lactate 10 MG/5 ML UDC 5 MG SL/PO (03:31)
--- NOTE | 2022-07-12 06:10 | NURSING ---
Called step-daughter Vale to let her know pt is declining more and that family is welcome to come in at any time if they want to. Vale is appreciative of the update.
--- NOTE | 2022-07-12 06:53 | NURSING ---
Pt alarmed asystole on tele monitor. Upon this RN's assessment, pt was no longer breathing and had no heartbeat, confirmed with second RN Karissa. Step-daughter Vale, who was present with pt's , notified of pt's passing. Vale said she would notify the rest of the family.
--- NOTE | 2022-07-12 08:01 | EXP.PCM_ITS ---
Preliminary Cause of Preliminary Cause of Preliminary Cause of : Acute hypoxic respiratory failure Acute Pseudomonas pneumonia Acute metabolic encephalopathy A. 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 Patient had presented to his primary care doctor on the day of admission and he was started on treatment for acute UTI and constipation. He presented to the hospital with progressive shortness of breath and was found to be in A. fib with RVR. He received a dose of Cardizem and converted to normal sinus rhythm. Admitting chest x-ray showed left pleural effusion with pneumonia. Patient was started found to have progressive shortness of breath, continued on BiPAP. Nephrology was consulted for hyponatremia. His diuretics were held. Patient became persistently hypoxic and dependent on BiPAP. Upon further discussion with family at bedside, patient was said to be DNR but the wanted intubation as a temporary measure to see if that helps him. He was intubated initially on 07/06/22 in the ICU. In the ICU, patient's sputum cultures grew Pseudomonas. His antibiotics was changed to Levaquin initially. He also went into RVR and was transitioned to IV amiodarone. His Levaquin was transitioned to cefepime. His heart rate improved and was kept on oral amiodarone. He gradually improved and was extubated on 07/08/22 but had to be reintubated a few minutes later on account of copious bloody secretions. Patient was taken off his therapeutic Lovenox. Repeat 2D ec ho did not show apical thrombus. Patient was extubated on 07/11/22. For the first few hours he appeared to be doing well. His family had previously stated that should he worsen, they do not want him to be reintubated on account of his wishes expressed in his DNR. Patient was found later to be having progressive shortness of breath, have increased inspiratory effort concerning for tracheal compromise. Chest x-ray was unremarkable. Patient did receive breathing treatment, racemic epi, IV Solu- Medrol, IV Lasix with no effect. Repeat ABG showed worsening respiratory acidosis. Patient transitioned back to BiPAP. Family informed, decision made to honor patient's wishes and not to reintubate. Comfort orders were started. Time of : 0635HRS Visit Charges Inpatient E&M: 06526 Disch Hosp
[2022-07-13 12:58] LABS: Pathologist Review Reviewed
== END 2022-07-12 08:00 | DRG 871 ==
LOC: ED 03:53 → PCU 04:28 → ICU 07-08 18:22
PROVIDERS: Internal Medicine; Internal Medicine Critical Care Medicine; Nurse Practitioner Adult Health; Admitting Provider Family Medicine; Emergency Provider Emergency Medicine; PCP Nurse Practitioner; Visit Provider Internal Medicine
DX: A41.9 Sepsis, unspecified organism (principal); J96.01 Acute respiratory failure with hypoxia; I50.23 Acute on chronic systolic (congestive) heart failure; G93.41 Metabolic encephalopathy; J15.1 Pneumonia due to Pseudomonas; I21.A1 Myocardial infarction type 2; J96.02 Acute respiratory failure with hypercapnia; I42.9 Cardiomyopathy, unspecified; I50.22 Chronic systolic (congestive) heart failure; N17.9 Acute kidney failure, unspecified; C96.9 Malignant neoplasm of lymphoid, hematopoietic and related tissue, unspecified; E87.1 Hypo-osmolality and hyponatremia; E87.29 Other acidosis; N39.0 Urinary tract infection, site not specified; R04.2 Hemoptysis; I11.0 Hypertensive heart disease with heart failure; I48.91 Unspecified atrial fibrillation; G70.00 Myasthenia gravis without (acute) exacerbation; I25.10 Atherosclerotic heart disease of native coronary artery without angina pectoris; E78.5 Hyperlipidemia, unspecified; E87.5 Hyperkalemia; Z79.82 Long term (current) use of aspirin; Z79.01 Long term (current) use of anticoagulants; Z87.891 Personal history of nicotine dependence; Z92.21 Personal history of antineoplastic chemotherapy; Z80.0 Family history of malignant neoplasm of digestive organs; Z66 Do not resuscitate; R33.9 Retention of urine, unspecified; E66.9 Obesity, unspecified; Z79.2 Long term (current) use of antibiotics; H91.90 Unspecified hearing loss, unspecified ear; B96.5 Pseudomonas (aeruginosa) (mallei) (pseudomallei) as the cause of diseases classified elsewhere
CPT/HCPCS: 31500; 31720; 36415; 36591; 36600; 71045; 80048; 80053; 80076; 81001; 82436; 82533; 82550; 82570; 82803; 82962; 83735; 83880; 83930; 83935; 84100; 84133; 84300; 84478; 84484; 84540; 84550; 85025; 87040; 87070; 87077; 87086; 87184; 87186; 87205; 87449; 92610; 93005; 93308; 94002; 94003; 94640; 94660; 94762; 97110; 97162; 97165; 97530; 97535; 97802; 97803; 99251; 99285; J7030; J7040; J7050; Q9957; A4216; C8924; G0463; J0610; J1940; J3010; J3490